=== PATIENT | male | born 1970 | race Caucasian/White ===

== ENCOUNTER → 2018-02-11 07:14 | Outpatient (CLI) | payer OTHER, MEDICAID, SELFPAY ==
[2018-02-11 09:06] LABS: Hematocrit 41.3 % (41-53)
[2018-02-11 09:07] LABS: Calcium 9.3 mg/dL (8.4-10.2)
[2018-02-11 09:39] LABS: Vitamin D 25 Hydroxy (D3) 26.8 ng/mL (30.0-100.0)
[2018-02-15 13:53] LABS: Parathyroid Hormone Int 42 pg/mL (14-64)
== END ==
PROVIDERS: PCP Physician Assistant; Visit Provider Nurse Practitioner
DX: E29.1 Testicular hypofunction (principal); M81.0 Age-related osteoporosis without current pathological fracture
CPT/HCPCS: 36415; 82306; 82310; 83970; 84402; 84403; 85014

== ENCOUNTER → 2018-04-16 12:56 | Outpatient (CLI) | payer OTHER, MEDICAID, SELFPAY ==
--- NOTE | 2018-04-16 | DI.RAD.S_ITS ---
PROCEDURE: XR LUMBAR SPINE 2-3V INDICATIONS: FALL WITH LUMBAR PAIN TECHNIQUE: 3 views of the lumbar spine were acquired. COMPARISON: [facility], , L-SPINE MINIMUM 4 VIEWS, 01/03/2016, 10:45. FINDINGS: Bones: 5 [id number] vertebrae are present. There is normal bony alignment. No vertebral body compression fractures. No suspicious bony lesions. Extensive degenerative change at L5-S1 is noted, mildly worsened from 2016 comparison study. Extensive spinal fixation crossing an area of prior burst fracture involving L3 is again noted. No disruption of the fixation devices is identified. Soft tissues: Overlying bowel gas pattern is normal. No suspicious soft tissue calcifications. IMPRESSION: Degenerative change and old fracture fixation devices crossing L3, no definite acute disease. Dictated by: Eber Wills M.D. on 04/16/2018 at 14:40 Approved by: Eber Wills M.D. on 04/16/2018 at 14:42
== END ==
PROVIDERS: PCP Physician Assistant; Visit Provider Nurse Practitioner
DX: M51.37 Other intervertebral disc degeneration, lumbosacral region (principal); M54.5 Low back pain
CPT/HCPCS: 72100

== ENCOUNTER → 2018-06-30 10:37 | Outpatient (CLI) | payer OTHER, SELFPAY ==
--- NOTE | 2018-06-30 | DI.RAD.S_ITS ---
PROCEDURE: XR LUMBAR SPINE MIN 4V INDICATIONS: SPINE FUSION TECHNIQUE: 5 views of the lumbar spine acquired. COMPARISON: [facility], CR, XR LUMBAR SPINE 2-3V, 04/16/2018, 12:46. [facility], CR, L-SPINE MINIMUM 4 VIEWS, 01/03/2016, 10:45. [facility], CT, CT LUMBAR SPINE WO CON, 06/30/2018, 10:41. FINDINGS: Bones: There is internal fixation of burst fracture at L3 with intact surgical hardware. Methylmethacrylate is noted within the L2 and L4 vertebral bodies, consistent with Vertebroplasties. No evidence for hardware failure. Moderate degenerative facet disease at L5-S1. Soft tissues: Overlying bowel gas pattern is normal. No suspicious soft tissue calcifications. Flexion/extension: There is reduced range of motion, with preserved normal alignment. IMPRESSION: 1. Stable postsurgical changes. 2. Degenerative changes noted. 3. Preserved alignment on flexion and extension. Dictated by: Jen Sanabria M.D. on 06/30/2018 at 18:08 Approved by: Jen Sanabria M.D. on 06/30/2018 at 19:02
--- NOTE | 2018-06-30 | DI.CT.S_ITS ---
PROCEDURE: CT LUMBAR SPINE WO CON INDICATIONS: FUSION OF SPINE TECHNIQUE: Noncontrast 3 mm thick sections acquired from the T12 level to the sacrum. Sagittal and coronal reformats were constructed. For radiation dose reduction, the following was used: automated exposure control. COMPARISON: [facility], CT, CT ABD PELVIS W CON TRAUMA, 10/05/2015, 18:59. [facility], CR, XR LUMBAR SPINE MIN 4V, 06/30/2018, 10:49. [facility], CR, XR LUMBAR SPINE 2-3V, 04/16/2018, 12:46. [facility], CR, L-SPINE MINIMUM 4 VIEWS, 01/03/2016, 10:45. FINDINGS: Image quality: Excellent. Bones: There is normal bony alignment. Surgical fixation of L3 burst fracture. There is spinal fusion at L2-L4. The interbody fixation device is noted in L3 vertebral body. Fixation hardware appears intact. Metallic artifact partially obscure corresponding levels. There is methylmethacrylate in L2 and L4 vertebral bodies. No acute vertebral body compression fractures. No suspicious lytic or blastic bony lesions. There is mild posterior disc bulge and disc osteophyte at L1-L2, L4-L5 and L5-S1. Central spinal caliber is of normal overall caliber. No pars defects. Soft tissues: No retroperitoneal masses or hematomas. Visualized aorta is normal in caliber. IMPRESSION: 1. Stable postsurgical changes. No evidence for hardware failure. 2. Mild degenerative disc disease at L1-L2, L 4-L5 and L5-S1. Dictated by: Jen Sanabria M.D. on 06/30/2018 at 17:11 Approved by: Jen Sanabria M.D. on 06/30/2018 at 19:07
== END ==
PROVIDERS: PCP Physician Assistant; Visit Provider Physical Medicine & Rehabilitation
DX: M51.36 Other intervertebral disc degeneration, lumbar region (principal); M51.37 Other intervertebral disc degeneration, lumbosacral region; Z98.1 Arthrodesis status
CPT/HCPCS: 72110; 72131

== ENCOUNTER → 2019-03-28 07:06 | Outpatient (CLI) | payer OTHER, MEDICAID, SELFPAY ==
[2019-03-28 08:16] LABS: Alanine Aminotransferase 14 IU/L (21-72); Albumin 4.1 g/dL (3.5-5.0); Alkaline Phosphatase 169 U/L (38-126); Aspartate Aminotransferase 24 IU/L (17-59); BUN Creatinine Ratio 15.7 (6-22); Bilirubin Total 0.6 mg/dL (0.2-1.3); Blood Urea Nitrogen 11 mg/dL (9-20); Calcium 9.3 mg/dL (8.4-10.2); Carbon Dioxide 33 mmol/L (22-32); Chloride 103 mmol/L (98-107); Cholesterol 126 mg/dL (140-199); Estimated Glomerular Filt Rate > 60.0 mL/min (>60); Globulin 4.2 g/dL (1.7-4.1); Glucose 99 mg/dL (70-100); HDL Cholesterol 40 mg/dL (40-60); HEMOLYSIS 20 (0-50); LDL Cholesterol Calculated 71 mg/dL (<100); Potassium 3.6 mmol/L (3.4-5.1); Sodium 141 mmol/L (137-145); Total Protein 8.3 g/dL (6.3-8.2); Triglycerides 73 mg/dL (35-150)
[2019-03-28 08:18] LABS: Hemoglobin A1C% w Est Avg Glu 5.2 % (4.0-6.0)
[2019-03-28 17:38] LABS: Microalbumin Urine Random 15.3 mg/dL (0-1.6)
[2019-03-28 18:50] LABS: Creatinine Urine Random 467.3 mg/dL; Microalbumi Creatinin Ratio Ur 32.7 ug/mg CR (<30)
== END ==
PROVIDERS: Family Provider Internal Medicine Endocrinology, Diabetes & Metabolism; PCP Physician Assistant; Visit Provider Physician Assistant
DX: E29.1 Testicular hypofunction (principal); I10 Essential (primary) hypertension; M81.0 Age-related osteoporosis without current pathological fracture
CPT/HCPCS: 36415; 80053; 80061; 82043; 82306; 82570; 83036

== ENCOUNTER → 2019-03-30 09:41 | Outpatient (CLI) | payer OTHER, MEDICAID, SELFPAY ==
[2019-03-30 10:33] LABS: Prostate Specific Antigen 0.991 ng/mL (0.10-4.00)
== END ==
PROVIDERS: Family Provider Internal Medicine Endocrinology, Diabetes & Metabolism; PCP Physician Assistant; Visit Provider Physician Assistant
DX: Z12.5 Encounter for screening for malignant neoplasm of prostate (principal)
CPT/HCPCS: 84153

== ENCOUNTER → 2019-03-30 10:29 | Outpatient (CLI) | payer OTHER, MEDICAID, SELFPAY ==
--- NOTE | 2019-03-30 10:32 | DI.RAD.S_ITS ---
PROCEDURE: XR LUMBAR SPINE 2-3V INDICATIONS: Fall onto back 2 weeks ago, pain in L5-S1 area TECHNIQUE: 3 views of the lumbar spine were acquired. COMPARISON: [facility], CR, L-SPINE MINIMUM 4 VIEWS, 01/03/2016, 10:45. [facility], CR, XR LUMBAR SPINE 2-3V, 04/16/2018, 12:46. [facility], CR, XR LUMBAR SPINE MIN 4V, 06/30/2018, 10:49. FINDINGS: Bones: Prior fixation of L3 burst fracture with intact surgical hardware and there is no evidence of hardware failure. Bone cement again visualized within the L2 and L4 vertebral bodies. Alignment is unchanged and no acute fracture seen. Mild disc degeneration at the L4-L5 and L5-S1 levels where there also is moderate facet joint arthropathy. Bones are osteopenic.. Soft tissues: Overlying bowel gas pattern is normal. No suspicious soft tissue calcifications. IMPRESSION: 1. Unchanged postsurgical sequelae. 2. Degenerative changes again noted. Dictated by: Trevor Terry [facility] Interpreted: Sesar Barrios MD on 03/30/2019 at 13:26 Approved by: Sesar Barrios M.D. on 03/30/2019 at 14:54
== END ==
PROVIDERS: PCP Physician Assistant; Visit Provider Physician Assistant
DX: Z12.5 Encounter for screening for malignant neoplasm of prostate (principal); M54.5 Low back pain; M47.816 Spondylosis without myelopathy or radiculopathy, lumbar region; M47.817 Spondylosis without myelopathy or radiculopathy, lumbosacral region; M51.36 Other intervertebral disc degeneration, lumbar region; M51.37 Other intervertebral disc degeneration, lumbosacral region; M81.0 Age-related osteoporosis without current pathological fracture; E29.1 Testicular hypofunction
CPT/HCPCS: 72100; 84153

== ENCOUNTER 2019-04-12 19:43 | Emergency (ER) | payer OTHER, MEDICAID, SELFPAY ==
[2019-04-12 19:45] VITALS: BP 153/125; PULSE 104; RESP 18; TEMP 36.7; O2SAT 99
--- NOTE | 2019-04-12 19:51 | ED_ITS ---
HPI - SOB/Dyspnea General Chief Complaint: Upper Respiratory Symptoms Stated Complaint: SHORT OF BREATH Time Seen by Provider: 04/12/19 19:46 Source: patient Mode of arrival: ambulatory Limitations: no limitations History of Present Illness Patient is a 48-year-old male. He is homeless. He does have a history of high blood pressure. He also has complaints of shortness of breath and tenderness when he touches the left side of his chest. He states he has had this chest pain in the past since been diagnosed with costochondritis. He states that he has sinus congestion and no nasal polyps. He is not currently on any decongestants. He attributes his shortness of breath to the fact that he closed his car windows today because it was raining which caused him to become more congested. He states he has not had any of his blood pressure medications in the past 4 days. He states that he lost his medications. He also states that alvarez moya has a headache. He went to the walk-in clinic and was sent her to the emergency department. Related Data Previous Rx's Medication Instructions Recorded amlodipine 10 mg tablet 10 mg PO DAILY #30 tab 03/30/19 amlodipine 10 mg PO DAILY #30 tab 04/12/19 loratadine [Claritin] 10 mg PO DAILY PRN #30 tab 04/12/19 Allergies Allergy/AdvReac Type Severity Reaction Status Date / Time aspirin [ASPIRIN] Allergy Severe Swollen Verified 03/30/19 09:28 head and upper respiratory distress at age 2 Penicillins [PENICILLINS] Allergy Unknown mom was Verified 03/30/19 09:28 told I was allergic to penicillin same as aspirin. Review of Systems Constitutional Denies fever(s) and Reports headache(s) Eyes Reports blurry vision ENT Ears, Nose, Mouth, and Throat: Reports headache(s) and Reports sinus pressure Cardiovascular Reports chest pain (Left-sided chest wall) and Reports dyspnea Respiratory Reports chest congestion and Reports dyspnea Comments: Sinus congestion Gastrointestinal Gastrointestinal: Denies abdominal pain Musculoskeletal Denies myalgias and Denies arthralgias Integumentary/Breasts Denies lesions and Denies rash Neurologic Denies behavioral changes and Reports headache(s) Psychiatric Denies behavioral changes Hematologic/Lymphatic Denies easy bleeding and Denies easy bruising [facility] Medical History Arm fracture, left (Acute 1990) Allergic rhinitis (Chronic 1968) Anxiety (Chronic) Depression (Chronic) Hearing loss (Chronic 1968) Hypertension (Chronic 2015) Hypogonadism (Chronic ~02/2016) Low back pain (Chronic) Osteoporosis (Chronic 1998) Partial blindness (Chronic 1968) Sleep apnea (Chronic Unknown) Burst fracture of lumbar vertebra (Resolved 09/2015) Compression fracture of L2 (Resolved 09/2015) Fractures (Resolved) Nasal polyps (Resolved 1968) Substance abuse (Resolved 1999) Surgical History (Updated 04/29/18 @ 13:43 by Doris Reynolds LPN) History of back surgery (Resolved 09/2015) History of surgery on arm (Resolved 1990) Hx of nasal polypectomy (Resolved ~1985) History of spinal fusion (2015) Family History (Updated 04/29/18 @ 13:45 by Doris Reynolds LPN) Brother Age: 52 Hypertension Brother Hypertension Mother Age: 75 Hypertension Sister Age: 57 Diabetes mellitus Hypertension Sister Age: 59 Diabetes mellitus Hypertension Father Cancer Social History Smoking Status: Never smoker second hand exposure: Yes (once in a while. ) alcohol intake: current (beer or mixed drinks twice a week. ) substance use type: marijuana Family History (Updated 04/29/18 @ 13:45 by Doris Reynolds LPN) Brother Age: 52 Hypertension Brother Hypertension Mother Age: 75 Hypertension Sister Age: 57 Diabetes mellitus Hypertension Sister Age: 59 Diabetes mellitus Hypertension Father Cancer Social History Smoking Status: Never smoker second hand exposure: Yes (once in a while. ) alcohol intake: current (beer or mixed drinks twice a week. ) substance use type: marijuana Exam Initial Vital Signs Initial Vital Signs: Vital Signs Temperature 98.1 F 04/12/19 19:45 Pulse Rate 104 H 04/12/19 19:45 Respiratory Rate 18 04/12/19 19:45 Blood Pressure 153/125 H 04/12/19 19:45 Pulse Oximetry 99 04/12/19 19:45 Const General: cooperative, well developed, well groomed and No acute distress Orientation: alert, awake and oriented x3 HENMT Head: normal to inspection and normocephalic Chest Chest: tenderness (Left-sided chest wall) Resp Effort & Inspection: normal respiratory effort Auscultation: clear to auscultation bilaterally Cardio Rate: tachycardic Rhythm: regular rhythm Pulses: radial pulses present GI Inspection: non-distended Palpation: soft, No firm and No tender Skin Lesions: no lesions Rashes: no rashes Neuro General: alert, awake and oriented x3 Speech: speech normal Gait: normal gait Motor: muscle tone normal throughout Sensory Exam: no sensory deficits noted Extrem General: normal to inspection and capillary refill normal Psych Appearance: grossly normal and well kempt Course Orders Ordered: ED Orders 04/12/19 19:50 EKG-12 Lead Stat 04/12/19 19:55 Basic Metabolic Panel Stat Complete Blood Count AUTO DIFF Stat Troponin I Stat 04/12/19 20:02 XR chest 1V Stat Discontinued Medications Amlodipine Besylate (Norvasc) 10 mg PO NOW ONE Stop: 04/12/19 20:03 Last Admin: 04/12/19 20:24 Dose: 10 mg Ibuprofen (Advil) 800 mg PO NOW ONE Stop: 04/12/19 20:03 Last Admin: 04/12/19 20:25 Dose: 800 mg Vital Signs - 8 hr 04/12/19 19:45 04/12/19 20:34 04/12/19 20:59 Temperature 98.1 F Pulse Rate 104 H 81 85 Respiratory Rate 18 14 Blood Pressure 153/125 H 162/122 H Blood Pressure [Right Arm] 154/117 H Pulse Oximetry 99 98 98 MDM - SOB/Dyspnea Medical Records Attestation: I reviewed the patient's medical records. Lab Data Attestation: I reviewed the patient's lab results. Result diagrams: 04/12/19 19:55 04/12/19 19:55 Lab Results 04/12/19 04/12/19 Range/Units 19:55 19:55 WBC 5.5 (4.5-11.0) X10^3/uL RBC 4.66 (4.5-5.9) X10^6/uL Hgb 14.4 (13.5-17.5) g/dL Hct 41.6 (41-53) % MCV 89.2 (80-100) fL MCH 30.8 (26-34) PG MCHC 34.6 (30-36) % RDW 12.6 (11.6-14.8) % Plt Count 205 (150-400) X10^3/uL Neut % (Auto) 42.5 L (50-75) % Lymph % (Auto) 37.6 (25-40) % [facility] % (Auto) 7.2 (3-14) % Eos % (Auto) 11.8 H (2-4) % Baso % (Auto) 0.9 (0-2) % Neut # (Auto) 2300 (3861-2258) /uL Lymph # (Auto) 2100 (4812-5364) /uL [facility] # (Auto) 400 (0-900) /uL Eos # (Auto) 700 H (0-450) /uL Baso # (Auto) 0 (0-100) /uL Sodium 142 (137-145) mmol/L Potassium 3.2 L (3.4-5.1) mmol/L Chloride 104 (98-107) mmol/L Carbon Dioxide 27 (22-32) mmol/L BUN 12 (9-20) mg/dL Creatinine 0.60 L (0.66-1.25) mg/dL Estimated GFR > 60.0 (>60) mL/min BUN/Creatinine Ratio 20.0 (6-22) Glucose 95 (70-100) mg/dL Calcium 9.4 (8.4-10.2) mg/dL Troponin I < 0.012 (0.01-0.034) ng/mL Imaging Data Chest x-ray: Radiologist's impression: [address] [address] XRay Report Signed Patient: Tom Escalona JMR#: [id number] : 1970Acct:[id number] Age/Sex: 48 / MDate of Service: 04/12/19 Loc: ED Accession Number: [id number] Procedure: XR chest 1V Ordering Provider: Noman Patel D.O. PROCEDURE: XR CHEST 1V INDICATIONS: shortness of breath TECHNIQUE: One view of the chest was acquired. COMPARISON: None. FINDINGS: Surgical changes and devices: None. Lungs and pleura: Lungs are clear. No pleural effusions or pneumothorax. Mediastinum: Mediastinal contours appear normal. Heart size is normal. Bones and chest wall: No suspicious bony lesions. Overlying soft tissues appear unremarkable. IMPRESSION: No acute disease. Dictated by: Sesar Barrios M.D. on 04/12/2019 at 20:26 Approved by: Sesar Barrios M.D. on 04/12/2019 at 20:36 ECG Data Attestation: I personally reviewed and interpreted this ECG as follows: Prior ECG tracings: not available for review Interpretation: Sinus rhythm Ventricular rate is 87 Normal axis Normal QRS Normal QTC No ST T wave changes MDM Narrative Medical decision making narrative: Patient has obvious left-sided chest wall pain have low suspicion for ACS. He does have sinus congestion. Low suspicion for PE. Chest x-ray is negative. EKG is unremarkable. Labs are unremarkable. he was given an ibuprofen for his headache. He was also given a dose of his amlodipine. Was sent home with a new prescription for this. Will also start him on Claritin. Will hold on further workup for now. Patient was given return precautions and follow-up instructions. He expressed understanding and agreement with plan. Discharge Plan Departure Patient Disposition: Home Clinical Impression: Sinus congestion Hypertension Qualifiers: Hypertension type: unspecified Qualified Code(s): I10 - Essential (primary) hypertension Discharge Date/Time: 04/12/19 21:00 Interventions: ED Discharge Assessment Last Done: 04/12/19 20:59 Instructions: Essential Hypertension Activity Restrictions/Additional Instructions: Continue to take all of your medications as directed. Tomorrow contact your primary provider for a follow-up. Return to the emergency department for any new or worsening symptoms Prescriptions: New amlodipine 10 mg tablet 10 mg PO DAILY Qty: 30 RF: 0 loratadine [Claritin] 10 mg tablet 10 mg PO DAILY PRN (Reason: allergy symptoms) Qty: 30 RF: 0 No Action amlodipine 10 mg tablet 10 mg PO DAILY Qty: 30 RF: 6 Referrals: Fabiola Elizabeth PA-C [Primary Care Provider] -
--- NOTE | 2019-04-12 20:02 | DI.RAD.S_ITS ---
PROCEDURE: XR CHEST 1V INDICATIONS: shortness of breath TECHNIQUE: One view of the chest was acquired. COMPARISON: None. FINDINGS: Surgical changes and devices: None. Lungs and pleura: Lungs are clear. No pleural effusions or pneumothorax. Mediastinum: Mediastinal contours appear normal. Heart size is normal. Bones and chest wall: No suspicious bony lesions. Overlying soft tissues appear unremarkable. IMPRESSION: No acute disease. Dictated by: Sesar Barrios M.D. on 04/12/2019 at 20:26 Approved by: Sesar Barrios M.D. on 04/12/2019 at 20:36
[2019-04-12 20:09] LABS: Add Manual Diff / Slide Review NO; Basophils Absolute Auto 0 /uL (0-100); Basophils Percent Auto 0.9 % (0-2); Eosinophils Absolute Auto 700 /uL (0-450); Eosinophils Percent Auto 11.8 % (2-4); Hematocrit 41.6 % (41-53); Hemoglobin 14.4 g/dL (13.5-17.5); Lymphocytes Absolute Auto 2100 /uL (1100-4500); Lymphocytes Percent Auto 37.6 % (25-40); Mean Corpuscular HGB Conc 34.6 % (30-36); Mean Corpuscular Hemoglobin 30.8 PG (26-34); Mean Corpuscular Volume 89.2 fL (80-100); Monocytes Absolute Auto 400 /uL (0-900); Monocytes Percent Auto 7.2 % (3-14); Neutrophils Absolute Auto 2300 /uL (1500-7000); Neutrophils Percent Auto 42.5 % (50-75); Platelet Count 205 X10^3/uL (150-400); Red Blood Cell Count 4.66 X10^6/uL (4.5-5.9); Red Cell Distribution Width 12.6 % (11.6-14.8); White Blood Cell Count 5.5 X10^3/uL (4.5-11.0)
[2019-04-12 20:16] LABS: Blood Urea Nitrogen 12 mg/dL (9-20); Calcium 9.4 mg/dL (8.4-10.2); Carbon Dioxide 27 mmol/L (22-32); Chloride 104 mmol/L (98-107); Estimated Glomerular Filt Rate > 60.0 mL/min (>60); Glucose 95 mg/dL (70-100); HEMOLYSIS 30 (0-50); Potassium 3.2 mmol/L (3.4-5.1); Sodium 142 mmol/L (137-145)
[2019-04-12] MEDS: AMLODIPINE 2.5 MG TABLET 10 MG PO (20:24)
[2019-04-12] MEDS: IBUPROFEN 400 MG TABLET 800 MG PO (20:25)
[2019-04-12 20:27] LABS: Troponin I < 0.012 ng/mL (0.01-0.034)
[2019-04-12 20:34] VITALS: BP 154/117; PULSE 81; RESP 14; O2SAT 98
[2019-04-12 20:59] VITALS: BP 162/122; PULSE 85; O2SAT 98
== END 2019-04-12 21:00 | disposition home or self-care (01) ==
PROVIDERS: Emergency Provider Emergency Medicine; PCP Physician Assistant
DX: R09.81 Nasal congestion (principal); I10 Essential (primary) hypertension
CPT/HCPCS: 36591; 71045; 80048; 84484; 85025; 93005; 99283; 99285

== ENCOUNTER 2019-04-20 06:53 | Emergency (ER) | payer OTHER, MEDICAID, SELFPAY ==
[2019-04-20 07:00] VITALS: BP 143/95; PULSE 79; RESP 20; TEMP 36.5; O2SAT 94; BMI 26.2
--- NOTE | 2019-04-20 07:14 | DI.RAD.S_ITS ---
PROCEDURE: XR RIBS LT MIN 3V W CXR1V INDICATIONS: fall 2 ft TECHNIQUE: 2 views of the left ribs were acquired, along with a single view chest. COMPARISON: CXR 03/23/2019 and left rib radiographs 04/10/2019. FINDINGS: Surgical changes and devices: Lumbar spine hardware. BB marker overlies the left lateral inferior ribs. Bones and chest wall: No displaced rib fracture. No periosteal reaction seen. No dislocation. No suspicious bony lesions. Overlying soft tissues appear unremarkable. Lungs and pleura: No pleural effusions or pneumothorax. Mild hazy opacity at the left lung base most compatible atelectasis. Mediastinum: Mediastinal contours appear normal. Heart size is normal. IMPRESSION: No displaced rib fracture. Left lung base atelectasis. Dictated by: Ken Chawla M.D. on 04/20/2019 at 8:09 Approved by: Ken Chawla M.D. on 04/20/2019 at 8:15
--- NOTE | 2019-04-20 07:15 | DI.RAD.S_ITS ---
PROCEDURE: XR WRIST LT MIN 3V INDICATIONS: fall 2ft TECHNIQUE: 4 views of the wrist were acquired. COMPARISON: None. FINDINGS: Bones: No fractures or dislocations. No suspicious bony lesions. Scaphoid view: Normal. Soft tissues: No suspicious soft tissue calcifications. Apparent swelling at the volar aspect of the wrist. IMPRESSION: No acute osseous abnormality. Dictated by: Ken Chawla M.D. on 04/20/2019 at 8:04 Approved by: Ken Chawla M.D. on 04/20/2019 at 8:06
--- NOTE | 2019-04-20 07:27 | ED.FALL ---
HPI - Fall General Chief Complaint: Fall Stated Complaint: fell 2 ft onto left hand and ribs pain Time Seen by Provider: 04/20/19 07:08 Source: patient Mode of arrival: ambulatory Limitations: no limitations History of Present Illness HPI Narrative: Patient presents emergency department complaining pain in his left wrist left ribs and lumbar spine after attempting to climb in a window and falling about 2 ft to the ground. Patient states he caught himself with his left upper extremity, then fell on to his elbow, coming down on his side causing his elbow to jabbed into his ribs. Patient states the fall occurred 5 days ago and he continues to have pain with inspiration, pain with movement of his wrist, and pain with movement of his lumbar spine that is worse than normal. Patient denies hitting his head or losing consciousness. He denies any abdominal pain. No extremity numbness or tingling. No lower extremity complaints. No other complaints at this time. Related Data Previous Rx's Medication Instructions Recorded amlodipine 10 mg tablet 10 mg PO DAILY #30 tab 03/30/19 amlodipine 10 mg PO DAILY #30 tab 04/12/19 loratadine [Claritin] 10 mg PO DAILY PRN #30 tab 04/12/19 Allergies Allergy/AdvReac Type Severity Reaction Status Date / Time aspirin [ASPIRIN] Allergy Severe Swollen Verified 03/30/19 09:28 head and upper respiratory distress at age 2 Penicillins [PENICILLINS] Allergy Unknown mom was Verified 03/30/19 09:28 told I was allergic to penicillin same as aspirin. Review of Systems Review of Systems ROS Unobtainable: All systems reviewed & are unremarkable except as noted in HPI and below Constitutional Constitutional: Denies chills, Denies fatigue, Denies fever(s), Denies frequent falls, Denies lethargy and Denies weakness Eyes Eyes: Denies change in vision, Denies eye discharge, Denies irritation and Denies loss of vision ENT Ears, Nose, Mouth, and Throat: Denies change in voice, Denies dizziness, Denies neck pain, Denies sore throat and Denies throat swelling Cardiovascular Cardiovascular: Denies chest pain, Denies irregular heart rhythm, Denies lightheadedness, Denies palpitations, Denies dyspnea, Denies dyspnea on exertion and Denies orthopnea Respiratory Respiratory: Denies cough, Denies dyspnea, Denies dyspnea on exertion and Denies wheezing Gastrointestinal Gastrointestinal: Denies abdominal pain, Denies change in bowel habits, Denies diarrhea, Denies nausea and Denies vomiting Genitourinary Genitourinary: Denies hematuria, Denies flank pain, Denies urinary incontinence and Denies urinary urgency Musculoskeletal Musculoskeletal: Reports back pain, Denies muscle weakness, Denies neck pain, Denies numbness and Denies tingling Comments: Pain of left wrist and left ribs. Integumentary/Breasts Skin/Breast: Denies pruritus, Denies erythema, Denies rash and Denies wounds Neurologic Neurologic: Denies behavioral changes, Denies confusion, Denies dizziness, Denies frequent falls, Denies loss of vision, Denies numbness, Denies tingling and Denies weakness Psychiatric Psychiatric: Denies anxiety, Denies behavioral changes, Denies confusion, Denies depression, Denies homicidal ideation and Denies suicidal ideation Endocrine Endocrine: Denies fatigue, Denies flushing and Denies palpitations Hematologic/Lymphatic Hematologic/Lymphatic: Denies easy bruising Allergic/Immunologic Allergic/Immunologic: Denies urticaria, Denies throat swelling and Denies wheezing Exam Initial Vital Signs Initial Vital Signs: Vital Signs Temperature 97.7 F 04/20/19 07:00 Pulse Rate 79 04/20/19 07:00 Respiratory Rate 20 04/20/19 07:00 Blood Pressure 143/95 H 04/20/19 07:00 Pulse Oximetry 94 04/20/19 07:00 Const General: cooperative and well developed Nutritional Appearance: well nourished Orientation: alert, awake, oriented x3 and not confused [facility] Head: normocephalic and atraumatic Ears: external ears normal and TM's normal bilaterally Nose: external nose normal and No nasal discharge Face and sinus: sinuses nontender, face symmetric, no sinus tenderness and No dry mucous membranes Mouth: oral mucosae normal and moist mucous membranes Teeth and gingiva: dentition normal Throat: tonsils normal and uvula midline Eyes General: appearance normal, both eyes and all related structures Eyelids: eyelids normal Conjunctivae: conjunctivae normal Sclera: sclerae normal Pupils: PERRL EOM: EOM intact bilaterally Neck Neck: normal visual inspection, trachea midline, No lymphadenopathy, No midline deformity and No JVD Lymphatic: No lymphedema Chest Other: Patient has moderate tenderness to palpation over his left lateral and anterolateral rib cage inferiorly. Tenderness extends from approximately the 10th rib to the 7th rib levels. Resp Effort & Inspection: normal respiratory effort, able to speak in complete sentences, no respiratory distress and no use of accessory muscles Auscultation: clear to auscultation bilaterally, no rales, no rhonchi and no wheezes Cardio Rate: regular rate Rhythm: regular rhythm Heart Sounds: no click, no gallops, no murmurs and no rubs Pulses: normal peripheral pulses GI Inspection: non-distended Palpation: soft, no hepatosplenomegaly, No guarding, No pulsatile mass and No tender Auscultation: normal bowel sounds Back/Spine/Pelvis Back: No CVA tenderness Cervical Spine: cervical ROM normal and No pain with cervical ROM Thoracic/Lumbar Spine: thoracic and lumbar spine normal to inspection Skin General: no rashes or lesions noted, No jaundice and No petechiae Neuro General: alert, oriented x3, gait normal and no focal motor deficits Speech: speech normal Extrem General: full ROM, no pedal edema and no calf tenderness Other: Patient has point tenderness over the radial aspect of his left wrist. No edema or deformity is noted. Mild tenderness is noted over the anatomical snuffbox. Psych Appearance: well kempt Mental Status: mental status grossly normal Attitude: cooperative Thought Content: normal and suicidality Judgment: judgment good [facility] Medical History Allergic rhinitis (Chronic 1968) Anxiety (Chronic) Arm fracture, left (Acute 1990) Burst fracture of lumbar vertebra (Resolved 09/2015) Compression fracture of L2 (Resolved 09/2015) Depression (Chronic) Fractures (Resolved) Hearing loss (Chronic 1968) Hypertension (Chronic 2015) Hypogonadism (Chronic ~02/2016) Low back pain (Chronic) Nasal polyps (Resolved 1968) Osteoporosis (Chronic 1998) Partial blindness (Chronic 1968) Sleep apnea (Chronic Unknown) Substance abuse (Resolved 1999) Surgical History History of back surgery (Resolved 09/2015) History of spinal fusion (2015) History of surgery on arm (Resolved 1990) Hx of nasal polypectomy (Resolved ~1985) Family History (Updated 04/29/18 @ 13:45 by Doris Reynolds LPN) Brother Age: 52 Hypertension Brother Hypertension Mother Age: 75 Hypertension Sister Age: 57 Diabetes mellitus Hypertension Sister Age: 59 Diabetes mellitus Hypertension Father Cancer Social History Smoking Status: Never smoker second hand exposure: Yes (once in a while. ) alcohol intake: current (beer or mixed drinks twice a week. ) substance use type: marijuana Family History Brother Age: 52 Hypertension Brother Hypertension Mother Age: 75 Hypertension Sister Age: 57 Diabetes mellitus Hypertension Sister Age: 59 Diabetes mellitus Hypertension Father Cancer Social History Smoking Status: Never smoker second hand exposure: Yes (once in a while. ) alcohol intake: current (beer or mixed drinks twice a week. ) substance use type: marijuana Course Course Course Narrative: Patient was sent for x-rays of his left wrist left ribs and lumbar spine, and treated with ibuprofen in the emergency department. Orders Ordered: ED Orders 04/20/19 07:14 XR ribs LT min 3V w CXR1V Stat 04/20/19 07:15 XR wrist LT min 3V Stat 04/20/19 07:28 XR lumbar spine 2-3V Stat Discontinued Medications Ibuprofen (Advil) 800 mg PO NOW ONE Stop: 04/20/19 07:28 Last Admin: 04/20/19 08:07 Dose: 800 mg Documented by: Vital Signs Vital signs: Vital Signs - 8 hr 04/20/19 07:00 Temperature 97.7 F Pulse Rate 79 Respiratory Rate 20 Blood Pressure 143/95 H Pulse Oximetry 94 MDM - Fall Medical Records Attestation: I reviewed the patient's medical records. Imaging Data X-ray lumbar spine: Radiologist's impression: ROCEDURE: XR LUMBAR SPINE 2-3V INDICATIONS: fall/fusion hx/sharp pain TECHNIQUE: 3 views of the lumbar spine were acquired. COMPARISON: [facility], [place], XR LUMBAR SPINE 2-3V, 03/30/2019, 10:36. CT lumbar spine 06/30/2018. FINDINGS: Bones: 5 [id number] vertebrae are present. Alignment is unchanged. No acute fracture seen. Pedicle screws at L2 and L4 with vertebroplasty. Intervertebral body spacer at L3. Hardware is intact and unchanged. No suspicious bony lesions. Soft tissues: Overlying bowel gas pattern is normal. No suspicious soft tissue calcifications. IMPRESSION: No acute osseous abnormality identified. Lumbar spine hardware is intact. Dictated by: Ken Chawla M.D. on 04/20/2019 at 8:06 Approved by: Ken Chawla M.D. on 04/20/2019 at 8:09 Wrist x-ray: Radiologist's impression: PROCEDURE: XR WRIST LT MIN 3V INDICATIONS: fall 2ft TECHNIQUE: 4 views of the wrist were acquired. COMPARISON: None. FINDINGS: Bones: No fractures or dislocations. No suspicious bony lesions. Scaphoid view: Normal. Soft tissues: No suspicious soft tissue calcifications. Apparent swelling at the volar aspect of the wrist. IMPRESSION: No acute osseous abnormality. Dictated by: Ken Chawla M.D. on 04/20/2019 at 8:04 Approved by: Ken Chawla M.D. on 04/20/2019 at 8:06 Rib x-ray: Radiologist's impression: PROCEDURE: XR RIBS LT MIN 3V W CXR1V INDICATIONS: fall 2 ft TECHNIQUE: 2 views of the left ribs were acquired, along with a single view chest. COMPARISON: CXR 03/23/2019 and left rib radiographs 04/10/2019. FINDINGS: Surgical changes and devices: Lumbar spine hardware. BB marker overlies the left lateral inferior ribs. Bones and chest wall: No displaced rib fracture. No periosteal reaction seen. No dislocation. No suspicious bony lesions. Overlying soft tissues appear unremarkable. Lungs and pleura: No pleural effusions or pneumothorax. Mild hazy opacity at the left lung base most compatible atelectasis. Mediastinum: Mediastinal contours appear normal. Heart size is normal. IMPRESSION: No displaced rib fracture. Left lung base atelectasis. Dictated by: Ken Chawla M.D. on 04/20/2019 at 8:09 Approved by: Ken Chawla M.D. on 04/20/2019 at 8:15 Discharge Plan Departure Patient Disposition: Home Clinical Impression: Contusion of multiple sites Left wrist sprain Qualifiers: Encounter type: initial encounter Qualified Code(s): S63.502A - Unspecified sprain of left wrist, initial encounter Instructions: DI for Wrist Sprain, DI for Contusion Activity Restrictions/Additional Instructions: All of your x-rays are negative for fracture. You may have sprained your wrist, and use likely bruised your ribs. Please take ibuprofen as needed, and You may also use ice to help with swelling and pain. Prescriptions: No Action amlodipine 10 mg tablet 10 mg PO DAILY Qty: 30 RF: 6 amlodipine 10 mg tablet 10 mg PO DAILY Qty: 30 RF: 0 loratadine [Claritin] 10 mg tablet 10 mg PO DAILY PRN (Reason: allergy symptoms) Qty: 30 RF: 0 Referrals: Fabiola Elizabeth PA-C [Primary Care Provider] -
[2019-04-20] MEDS: IBUPROFEN 400 MG TABLET 800 MG PO (08:07)
[2019-04-20 08:31] VITALS: BP 143/94; PULSE 79; RESP 18; O2SAT 98
--- NOTE | 2019-04-20 12:34 | PC.NURSE ---
Found magnifying glass that pt left in room after discharge. Magnifying glass was taken to the lost and found with his name and birthday attached. Pt was called and message was left telling him where it was so he can pick it up if he'd like
== END 2019-04-20 08:35 | disposition home or self-care (01) ==
PROVIDERS: Emergency Provider Emergency Medicine; PCP Physician Assistant
DX: S63.502A Unspecified sprain of left wrist, initial encounter (principal); T14.8XXA Other injury of unspecified body region, initial encounter; W17.89XA Other fall from one level to another, initial encounter
CPT/HCPCS: 71101; 72100; 73110; 99282; 99283

== ENCOUNTER 2019-04-29 12:50 | Emergency (ER) | payer OTHER, MEDICAID, SELFPAY ==
[2019-04-29 12:51] VITALS: BP 147/84; PULSE 86; RESP 16; TEMP 36.3; O2SAT 96
--- NOTE | 2019-04-29 13:30 | DI.RAD.S_ITS ---
PROCEDURE: XR RIBS LT MIN 3V W CXR1V INDICATIONS: Left rib pain after fall, SOB TECHNIQUE: 3 views of the left ribs were acquired, along with a single view chest. COMPARISON: [facility], CR, XR LUMBAR SPINE 2-3V, 04/20/2019, 7:34. [facility], CR, XR RIBS LT MIN 3V W CXR1V, 04/20/2019, 7:27. FINDINGS: Surgical changes and devices: None. Bones and chest wall: Mildly displaced left 6th through 8th rib fractures are evident. There may be additional subtle rib fractures, as well. No obvious dislocations are appreciated. There is a questionable anterior compression deformity involving the T10 vertebral body. His upper thoracic spine is not adequately evaluated on this exam. Postoperative changes of the upper lumbar spine are only partially visualized. No suspicious bony lesions. Overlying soft tissues appear unremarkable. Lungs and pleura: No pleural effusions or pneumothorax. Lungs appear clear. Mediastinum: Mediastinal contours appear normal. Heart size is normal. IMPRESSION: 1. Nondisplaced left 6th through 8th rib fractures. No definite pneumothorax. 2. Possible T10 compression deformity. Thoracic spine series may be helpful for better evaluation. Dictated by: Candido Kim M.D. on 04/29/2019 at 13:03 Approved by: Candido Kim M.D. on 04/29/2019 at 13:05
--- NOTE | 2019-04-29 13:33 | ED_ITS ---
HPI - Back Pain/Injury <CYNTHIA Mcmanus - Last Filed: 04/29/19 22:47> General Chief Complaint: Back Pain/Injury Stated Complaint: pain lt underarm x3 weeks ago Time Seen by Provider: 04/29/19 13:01 Source: patient Mode of arrival: ambulatory Limitations: no limitations History of Present Illness HPI Narrative: 48-year-old male with a history of osteoporosis, presents emergency department today complaining of continued left rib pain after fall 3 weeks ago. He states he had a ground level fall and slipped, fell to the ground, and his left wrist was underneath his ribs when he fell. He states he was seen in the emergency department when this 1st happened and the chest x-ray was negative but he feels like he should not have continued pain. He states the pain is in the left lower ribs and and reports that as an intermittent 10/10 sharp stabbing pain that is worse with deep inspiration, cough, movement, and sneezing. He denies any pain in his left wrist at this time. He denies any head trauma, shortness of breath, fevers, chills, abdominal pain, nausea, vomiting, syncope, or dizziness. Related Data Home Medications Medication Instructions Recorded Confirmed testosterone 10 mg/0.5 6 pump TRANSDERMAL QAM gram 04/26/19 04/26/19 gram/actuation transdermal gel pump Previous Rx's Medication Instructions Recorded amlodipine 10 mg PO DAILY #30 tab 04/12/19 loratadine [Claritin] 10 mg PO DAILY PRN #30 tab 04/12/19 cyclobenzaprine 5 mg tablet 5 mg PO BEDTIME PRN #10 tab 04/26/19 ibuprofen 600 mg tablet 600 mg PO Q6H PRN #30 tab 04/26/19 Allergies Allergy/AdvReac Type Severity Reaction Status Date / Time aspirin [ASPIRIN] Allergy Severe Swollen Verified 04/29/19 13:28 head and upper respiratory distress at age 2 Penicillins [PENICILLINS] Allergy Unknown mom was Verified 04/29/19 13:28 told I was allergic to penicillin same as aspirin. Review of Systems <CYNTHIA Mcmanus - Last Filed: 04/29/19 22:47> Review of Systems Narrative: REVIEW OF SYSTEMS: GENERAL: Denies fever or chills. HENT: No head trauma. EYES: No double vision or vision loss. CARDIOVASCULAR: No chest pain or syncope. RESPIRATORY: No shortness of breath or cough. GASTROINTESTINAL: No nausea, vomiting, diarrhea, or constipation. GENITOURINARY: No flank pain or dysuria. MUSCULOSKELETAL: Complains of left rib pain, see HPI. INTEGUMENTARY: No rash, lesions, or pruritus. NEURO: No numbness, tingling. PSYCH: No behavior or mood changes. [facility] <CYNTHIA Mcmanus - Last Filed: 04/29/19 22:47> Medical History Allergic rhinitis (Chronic 1968) Anxiety (Chronic) Arm fracture, left (Acute 1990) Burst fracture of lumbar vertebra (Resolved 09/2015) Compression fracture of L2 (Resolved 09/2015) Depression (Chronic) Fractures (Resolved) Hearing loss (Chronic 1968) Hypertension (Chronic 2015) Hypogonadism (Chronic ~02/2016) Low back pain (Chronic) Nasal polyps (Resolved 1968) Osteoporosis (Chronic 1998) Partial blindness (Chronic 1968) Sleep apnea (Chronic Unknown) Substance abuse (Resolved 1999) Surgical History History of back surgery (Resolved 09/2015) History of spinal fusion (2015) History of surgery on arm (Resolved 1990) Hx of nasal polypectomy (Resolved ~1985) Family History Brother Age: 52 Hypertension Brother Hypertension Mother Age: 75 Hypertension Sister Age: 57 Diabetes mellitus Hypertension Sister Age: 59 Diabetes mellitus Hypertension Father Cancer Social History Smoking Status: Never smoker second hand exposure: Yes (once in a while. ) alcohol intake: current (beer or mixed drinks twice a week. ) substance use type: marijuana Family History Brother Age: 52 Hypertension Brother Hypertension Mother Age: 75 Hypertension Sister Age: 57 Diabetes mellitus Hypertension Sister Age: 59 Diabetes mellitus Hypertension Father Cancer Social History Smoking Status: Never smoker second hand exposure: Yes (once in a while. ) alcohol intake: current (beer or mixed drinks twice a week. ) substance use type: marijuana Exam <CYNTHIA Mcmanus - Last Filed: 04/29/19 22:47> Initial Vital Signs Initial Vital Signs: Vital Signs Temperature 97.4 F L 04/29/19 12:51 Pulse Rate 86 04/29/19 12:51 Respiratory Rate 16 04/29/19 12:51 Blood Pressure 147/84 H 04/29/19 12:51 Pulse Oximetry 96 04/29/19 12:51 PHYSICAL EXAMINATION: GENERAL: Well groomed, alert, and cooperative. Answers questions promptly and appropriately. Vital signs noted. HENT: Normocephalic, atraumatic. EYES: Symmetrical, sclera white, no periorbital swelling. CARDIOVASCULAR: S1 and S2 sounds normal. Regular rate and rhythm, no murmurs, clicks, or bruits. No pedal edema. RESPIRATORY: Normal respiratory rate, trachea midline, airway patent. No stridor, nasal flaring or accessory muscle use. Lungs are clear in all [place]. MUSCULOSKELETAL: Tenderness to palpation of lower left ribs (rib 7 or 8), pain is also reproduced when patient is asked to move. No ecchymosis or erythema around the area. Full range of motion to upper extremities, no sternal tenderness. Approximately Normal gait and coordination. Equal tone and mass bilaterally. No spinal tenderness or deformities. EXTREMITIES: CMS intact. No pedal edema. SKIN: Warm, dry, soft, appropriate color for ethnicity. No lesions, rashes, or wounds. NEURO: Alert and Oriented X 3. No sensory deficits. PSYCH: Appropriate affect and mood. <Venkat Lowery DO - Last Filed: 04/30/19 06:37> Initial Vital Signs Initial Vital Signs: Vital Signs Temperature 97.4 F L 04/29/19 12:51 Pulse Rate 86 04/29/19 12:51 Respiratory Rate 16 04/29/19 12:51 Blood Pressure 147/84 H 04/29/19 12:51 Pulse Oximetry 96 04/29/19 12:51 Course <CYNTHIA Mcmanus - Last Filed: 04/29/19 22:47> Course Course Narrative: Patient denied need of any pain medication. Orders Ordered: ED Orders 04/29/19 14:39 RT Consult Eval and Treat NOW Vital Signs Vital signs: Vital Signs - 8 hr 04/29/19 12:51 Temperature 97.4 F L Pulse Rate 86 Respiratory Rate 16 Blood Pressure 147/84 H Pulse Oximetry 96 <Venkat Lowery DO - Last Filed: 04/30/19 06:37> Orders Ordered: ED Orders 04/29/19 14:39 RT Consult Eval and Treat NOW Vital Signs Vital signs: Vital Signs - 8 hr 04/29/19 12:51 Temperature 97.4 F L Pulse Rate 86 Respiratory Rate 16 Blood Pressure 147/84 H Pulse Oximetry 96 MDM - Back Pain/Injury <CYNTHIA Mcmanus - Last Filed: 04/29/19 22:47> Medical Records Attestation: I reviewed the patient's medical records. Lab Data Attestation: I reviewed the patient's lab results. Imaging Data Rib XR: Radiologist's impression: [address] [id number] XRay Report Signed Patient: Tom Escalona JMR#: [id number] : 1970Acct:[id number] Age/Sex: 48 / MDate of Service: 04/29/19 Loc: ED Accession Number: [id number] Procedure: XR ribs LT min 3V w CXR1V Ordering Provider: Michelle Radford PROCEDURE: XR RIBS LT MIN 3V W CXR1V INDICATIONS: Left rib pain after fall, SOB TECHNIQUE: 3 views of the left ribs were acquired, along with a single view chest. COMPARISON: [facility], CR, XR LUMBAR SPINE 2-3V, 04/20/2019, 7:34. [facility], CR, XR RIBS LT MIN 3V W CXR1V, 04/20/2019, 7:27. FINDINGS: Surgical changes and devices: None. Bones and chest wall: Mildly displaced left 6th through 8th rib fractures are evident. There may be additional subtle rib fractures, as well. No obvious dislocations are appreciated. There is a questionable anterior compression deformity involving the T10 vertebral body. His upper thoracic spine is not adequately evaluated on this exam. Postoperative changes of the upper lumbar spine are only partially visualized. No suspicious bony lesions. Overlying soft tissues appear unremarkable. Lungs and pleura: No pleural effusions or pneumothorax. Lungs appear clear. Mediastinum: Mediastinal contours appear normal. Heart size is normal. IMPRESSION: 1. Nondisplaced left 6th through 8th rib fractures. No definite pneumothorax. 2. Possible T10 compression deformity. Thoracic spine series may be helpful for better evaluation. Dictated by: Candido Kim M.D. on 04/29/2019 at 13:03 Approved by: Candido Kim M.D. on 04/29/2019 at 13:05 [facility] Narrative Medical decision making narrative: Simple display of rib fractures and compress ion fracture as indicated on x-ray without complication of pneumonia (no pneumonia on x-ray, afebrile, lack of tachycardia, lack of cough). Incentive spirometer given. Strict return precautions given and follow-up instructions discussed. Discharge Plan Departure Patient Disposition: Home Clinical Impression: Compression fracture Fracture of rib Qualifiers: Encounter type: initial encounter Rib fracture type: multiple ribs Fracture type: closed Laterality: left Qualified Code(s): S22.42XA - Multiple fractures of ribs, left side, initial encounter for closed fracture Discharge Date/Time: 04/29/19 15:13 Instructions: Vertebral Compression Fracture, DI for Rib Fracture Activity Restrictions/Additional Instructions: Thank you for entrusting me with your care today. As discussed, you have two rib fractures, #4 and # 6, as well as a compression fracture in your spine T10. Please use your incentive spirometer 10 times a day for 10 breaths each. Take 600 mg of ibuprofen every 6 hours or 1 naproxen every 12, do not take more than this as it can cause damage to your kidneys. Please follow up with her primary care provider in the next week as planned. Return to the emergency department if you develops high fevers, shortness of breath, syncope, or other concerning symptoms. Prescriptions: No Action testosterone 10 mg/0.5 gram /actuation gel in metered-dose pump 6 pump transdermal QAM RF: 0 ibuprofen 600 mg tablet 600 mg PO Q6H PRN (Reason: pain) Qty: 30 RF: 0 cyclobenzaprine 5 mg tablet 5 mg PO BEDTIME PRN (Reason: muscle spasm) Qty: 10 RF: 0 amlodipine 10 mg tablet 10 mg PO DAILY Qty: 30 RF: 0 loratadine [Claritin] 10 mg tablet 10 mg PO DAILY PRN (Reason: allergy symptoms) Qty: 30 RF: 0 Referrals: Fabiola Elizabeth PA-C [Primary Care Provider] - <Venkat Lowery DO - Last Filed: 04/30/19 06:37> Sign Out Provider Sign Out Attestation: I was immediately available in the department for consultation. Documentation has been reviewed. I agree with assessment and plan.
[2019-04-29 14:30] VITALS: BP 131/88; PULSE 77; RESP 17; O2SAT 99
--- NOTE | 2019-04-29 14:30 | PC.NURSE ---
Pain to left lower ribs, worse with inspiration or palpation from fall 3 weeks ago.
== END 2019-04-29 15:13 | disposition home or self-care (01) ==
PROVIDERS: Emergency Provider Nurse Practitioner; PCP Physician Assistant
DX: S22.009A Unspecified fracture of unspecified thoracic vertebra, initial encounter for closed fracture (principal); S22.42XA Multiple fractures of ribs, left side, initial encounter for closed fracture; W19.XXXA Unspecified fall, initial encounter
CPT/HCPCS: 71101; 99282; 99283

== ENCOUNTER 2019-07-18 11:56 | Day surgery (SDC) | payer OTHER, MEDICAID, SELFPAY ==
[2019-07-18 08:09] VITALS: BP 100/75; PULSE 85; RESP 14; O2SAT 96
[2019-07-18 12:20] VITALS: BP 143/95; PULSE 71; RESP 16; TEMP 36.6; O2SAT 95; BMI 27.3
[2019-07-18] MEDS: SODIUM CHLORIDE 0.9% 1,000 ML 200 ML IV ×2 (12:38→13:39)
--- NOTE | 2019-07-18 12:51 | PM.HP.1 ---
History of Present Illness History of Present Illness Date Patient Seen: 07/18/19 Time Patient Seen: 12:51 Chief complaint: [id number] Narrative: This is a 48-year-old man who has never had a screening colonoscopy. He denies any personal history of melena, hematochezia, abdominal pain, or unexplained weight loss. He has no known family history of colon cancer. He complains of completely obstructing nasal polyps, and a prior history of surgery on his lower back diffuse his L-spine and surgery on his left arm. He also has hypertension and seasonal allergies. ROS: Thirteen system review is negative other than as mentioned below and in HPI. PE: GENERAL: Well groomed and cooperative. Appears stated age. Answers questions promptly and appropriately. Vital signs noted. HENT: Normocephalic, atraumatic. Hearing intact. Oral mucosa is pink and moist. Nasal voice consistent with partially obstructed nasal airway EYES: Conjunctiva pink, sclera white, no periorbital swelling. CARDIOVASCULAR: Regular rate. No pedal edema. RESPIRATORY: Normal respiratory rate, breathing comfortably on room air. GASTROINTESTINAL: Abdomen soft and non-distended GENITALURINARY: No flank tenderness. MUSCULOSKELETAL: Equal tone and mass bilaterally. SKIN: Warm, dry, soft, appropriate color for ethnicity. No other lesions, rashes, or wounds. NEURO: Alert and Oriented X 3. No gross sensory deficits, or cognitive issues. PSYCH: Appropriate affect and mood. Patient History Medical History Allergic rhinitis (Chronic 1968) Anxiety (Chronic) Arm fracture, left (Acute 1990) Burst fracture of lumbar vertebra (Resolved 09/2015) Compression fracture of L2 (Resolved 09/2015) Depression (Chronic) Fractures (Resolved) Hearing loss (Chronic 1968) Hypertension (Chronic 2015) Hypogonadism (Chronic ~02/2016) Low back pain (Chronic) Nasal polyps (Resolved 1968) Osteoporosis (Chronic 1998) Partial blindness (Chronic 1968) Sleep apnea (Chronic Unknown) Substance abuse (Resolved 1999) Surgical History History of back surgery (Resolved 09/2015) History of spinal fusion (2015) History of surgery on arm (Resolved 1990) Hx of nasal polypectomy (Resolved ~1985) Family & Social History Family History Brother Age: 52 Hypertension Brother Hypertension Mother Age: 75 Hypertension Sister Age: 57 Diabetes mellitus Hypertension Sister Age: 59 Diabetes mellitus Hypertension Father Cancer Social History: household members none Tobacco & Substance use: Smoking Status Never smoker alcohol intake current alcohol intake frequency holiday/special occasion Substance Use Type does not use Meds Home Medications and Allergies Home Medications Medication Instructions Recorded Confirmed Type amlodipine 10 mg PO DAILY #30 tab 04/12/19 07/18/19 Rx ibuprofen 600 mg tablet 600 mg PO Q6H PRN #30 tab 04/26/19 07/18/19 Rx testosterone 6 pump TRANSDERMAL QAM gram 04/26/19 07/18/19 History loratadine 10 mg tablet 10 mg PO DAILY PRN #90 tab 06/08/19 07/18/19 Rx Allergies Allergy/AdvReac Type Severity Reaction Status Date / Time aspirin [ASPIRIN] Allergy Severe Swollen Verified 07/18/19 12:18 head and upper respiratory distress at age 2 Penicillins [PENICILLINS] Allergy Unknown mom was Verified 07/18/19 12:18 told I was allergic to penicillin same as aspirin. Exam Vital Signs (past 8 hours): - 07/18/19 12:20 Temperature 97.9 F Pulse Rate 71 Respiratory Rate 16 Blood Pressure 143/95 H Pulse Oximetry 95 Oxygen Delivery Method Room Air Assessment & Plan Assessment and plan (1) At average risk for colon cancer: Current visit: Yes Status: Acute (2) Encounter for screening colonoscopy: Current visit: Yes Status: Acute Assessment & Plan narrative: Risks and benefits of screening colonoscopy and possible polypectomy were discussed with the patient including risk of bleeding, perforation, need for additional procedures. The patient desires to proceed with colonoscopy. Time Spent With Patient Time with patient: 15-24 minutes Quality VTE Deep Vein Thrombosis/Pulmonary Embolism Present on Admission: No
[2019-07-18] MEDS: MIDAZOLAM 5 MG/5 ML VIAL IV (13:34)
[2019-07-18] MEDS: fentaNYL 250 MCG/5 ML INJ IV (13:34)
--- NOTE | 2019-07-18 13:49 | PM.OP.ENDO ---
Operative Date/Time/Diagnoses Date of procedure: 07/18/19 Time of procedure: 13:49 Pre-op diagnosis: Average risk for colon cancer Post-op diagnosis: other (Diverticulosis) Procedure & Clinicians Study performed: Screening colonoscopy Same procedure as scheduled: Yes Indications: Average risk for colon cancer Surgeon: Migdalia Avery Procedure Notes SCOAP/Timeout: Performed Procedure in detail: The patient was brought to the room and placed in left lateral decubitus position with all bony prominences padded. A time-out was performed and then the patient was given procedural sedation starting with [4] mg of Versed and [100] mcg of fentanyl. Vitals were monitored throughout the procedure and remained stable. Once adequately sedated the procedure was begun. A rectal exam was performed revealing [no abnormalities]. The colonoscope was then introduced to the rectum and advanced to the cecum in the usual fashion. []The cecum was identified by the appendiceal orifice, the mucosal try fold, and the ileocecal valve. The scope was then retracted while rotating side to side and examining each mucosal fold. [The prep was moderate in the right colon, and poor in the descending and sigmoid colon. I did a lot of power wash and suction, but could not get an adequate view to verify that there are no small polyps that could be missed. He also had moderate to severe diverticulosis throughout the descending and sigmoid colon.] At the conclusion procedure retroflexion was performed and [small grade 1-2 internal hemorrhoids without stigmata of bleeding were seen]. The scope was then withdrawn from the rectum the procedure was concluded. The patient tolerated the procedure well was transferred to the PACU in stable condition. Scope withdrawal time: 10 Sedation minutes: 39 Findings: diverticulosis Specimen(s): none sent Complications: none Impression: Moderate diverticulosis, poor prep Post-procedure Recommendations: Colonscopy in 5 years (Due to poor prep. Small polyps could have been missed, so repeat colonoscopy should be done in 5 years with 2 day prep.) Follow up: as needed Disposition: PACU
[2019-07-18 13:54] VITALS: BP 122/82; PULSE 66; RESP 23; O2SAT 97
[2019-07-18 13:59] VITALS: BP 121/82; PULSE 60; RESP 14; O2SAT 94
[2019-07-18 14:04] VITALS: BP 130/83; PULSE 58; RESP 14; O2SAT 95
--- NOTE | 2019-07-18 14:13 | SUR.PHASEI ---
HOB elevated, juice given, Denies pain
[2019-07-18 14:14] VITALS: BP 140/88; PULSE 81; RESP 12; O2SAT 95
--- NOTE | 2019-07-18 14:39 | SUR.PHASEII ---
Pt was able to reach his ride, IV dc'd
--- NOTE | 2019-07-18 14:44 | SUR.PHASEII ---
Tolerating PO well, Clothes given
== END 2019-07-18 14:49 | disposition home or self-care (01) ==
PROVIDERS: Family Provider Physician Assistant; PCP Physician Assistant; Visit Provider Surgery
PROC: 0DJD8ZZ Inspection of Lower Intestinal Tract, Via Natural or Artificial Opening Endoscopic (ICD-10-PCS; CPT 45378; principal; 2019-07-18 13:00)
DX: Z12.11 Encounter for screening for malignant neoplasm of colon (principal); F41.9 Anxiety disorder, unspecified; K57.30 Diverticulosis of large intestine without perforation or abscess without bleeding; K64.0 First degree hemorrhoids; I10 Essential (primary) hypertension
CPT/HCPCS: 45378; 99152; 99153; J2250; J3010

== ENCOUNTER → 2019-09-19 14:01 | Outpatient (CLI) | payer OTHER, MEDICAID, SELFPAY ==
[2019-09-19 14:39] LABS: Add Manual Diff / Slide Review NO; Basophils Absolute Auto 0 /uL (0-100); Basophils Percent Auto 0.8 % (0-2); Eosinophils Absolute Auto 600 /uL (0-450); Eosinophils Percent Auto 11.4 % (2-4); Hematocrit 39.1 % (41-53); Hemoglobin 13.5 g/dL (13.5-17.5); Lymphocytes Absolute Auto 1900 /uL (1100-4500); Mean Corpuscular HGB Conc 34.6 % (30-36); Mean Corpuscular Hemoglobin 31.3 PG (26-34); Mean Corpuscular Volume 90.4 fL (80-100); Monocytes Absolute Auto 500 /uL (0-900); Neutrophils Absolute Auto 2500 /uL (1500-7000); Neutrophils Percent Auto 44.8 % (50-75); Platelet Count 210 X10^3/uL (150-400); Red Blood Cell Count 4.33 X10^6/uL (4.5-5.9); Red Cell Distribution Width 13.7 % (11.6-14.8); White Blood Cell Count 5.5 X10^3/uL (4.5-11.0)
[2019-09-19 15:29] LABS: Alanine Aminotransferase 25 IU/L (<50); Albumin 4.2 g/dL (3.5-5.0); Albumin Globulin Ratio 1.2 (1.0-2.8); Alkaline Phosphatase 134 U/L (38-126); Aspartate Aminotransferase 27 IU/L (17-59); BUN Creatinine Ratio 21.1 (6-22); Blood Urea Nitrogen 19 mg/dL (9-20); Calcium 9.8 mg/dL (8.4-10.2); Carbon Dioxide 26 mmol/L (22-32); Chloride 103 mmol/L (98-107); Estimated Glomerular Filt Rate > 60.0 mL/min (>60); Globulin 3.6 g/dL (1.7-4.1); Glucose 103 mg/dL (70-100); HEMOLYSIS < 15 (0-50); Potassium 3.8 mmol/L (3.4-5.1); Sodium 139 mmol/L (137-145); Total Protein 7.8 g/dL (6.3-8.2)
== END ==
PROVIDERS: PCP Physician Assistant; Visit Provider Physician Assistant
DX: I10 Essential (primary) hypertension (principal); R74.8 Abnormal levels of other serum enzymes; R79.89 Other specified abnormal findings of blood chemistry
CPT/HCPCS: 36415; 80053; 85025

== ENCOUNTER 2019-12-15 07:50 | Emergency (ER) | payer OTHER, MEDICAID, SELFPAY ==
[2019-12-15 08:09] VITALS: BP 177/114; PULSE 80; RESP 18; TEMP 36.7; O2SAT 99; BMI 28.3
--- NOTE | 2019-12-15 08:18 | ED.HA ---
HPI - Headache General Chief Complaint: Headache Stated Complaint: Trent in your head feeling Lt timple Time Seen by Provider: 12/15/19 07:53 Mode of arrival: Family Vehicle Limitations: no limitations History of Present Illness HPI Narrative: CC: Is stabbing spike like headache in the left gnosticist HPI: The patient is a 49-year-old male who states that he is having a sufficient her pounding spike like stabbing headache in his left gnosticist. He states that he has had it for at least the last 2-3 days prior to admission. The pain and discomfort ranges from 2/10 in intensity. He denies any fall or injury. He has had similar headaches in the past. He has not been formally diagnosed to have migraines. The headache is intermittently pounding and varies in intensity but is constant. He denies any fall or injury to his head. He has had no numbness tingling paresthesias anesthesia is pre cysts or paralysis. He has had no loss of vision no scotomata no diplopia. He does complain of intermittently blurred vision. He denies a history of trigeminal neuralgia or temporal arteritis. He has had no history of any lupus rheumatoid arthritis or any other autoimmune diseases. He does have hypertension and has been out of his amlodipine for at least 4-5 days. He believes his headache may be secondary to his hypertension. The patient denies smoking cigarettes drinks alcohol rarely and does not use any drugs. He primarily is sleeping in his car and is homeless. He states that he has mold in his car. He denies any fever chills sweats numbness tingling paresthesias anesthesia is paresis or paralysis. He has had no sore throat or sinus congestion. He has had a mild intermittent dry unproductive cough. He denies any chest pain or significant shortness of breath abdominal pain nausea vomiting diarrhea or troubles urinating. Related Data Home Medications Medication Instructions Recorded Confirmed testosterone 6 pump TRANSDERMAL QAM gram 04/26/19 09/29/19 Previous Rx's Medication Instructions Recorded amlodipine 10 mg PO DAILY #30 tab 04/12/19 ibuprofen 600 mg tablet 600 mg PO Q6H PRN #30 tab 04/26/19 loratadine 10 mg tablet 10 mg PO DAILY PRN #90 tab 06/08/19 amlodipine 10 mg PO DAILY #20 tab 04/24/20 ibuprofen 600 mg PO Q6H PRN #30 tab 12/15/19 Allergies Allergy/AdvReac Type Severity Reaction Status Date / Time aspirin [ASPIRIN] Allergy Severe Swollen Verified 07/18/19 12:18 head and upper respiratory distress at age 2 Penicillins [PENICILLINS] Allergy Unknown mom was Verified 07/18/19 12:18 told I was allergic to penicillin same as aspirin. Review of Systems Review of Systems Narrative: Review of systems are all negative except for those mentioned in the history of present illness Patient History Medical History Allergic rhinitis (Chronic 1968) Anemia (Acute) Anxiety (Chronic) Arm fracture, left (Acute 1990) Burst fracture of lumbar vertebra (Resolved 09/2015) Compression fracture of L2 (Resolved 09/2015) Depression (Chronic) Fractures (Resolved) Hearing loss (Chronic 1968) Hypertension (Chronic 2015) Hypogonadism (Chronic ~02/2016) Low back pain (Chronic) Nasal polyps (Resolved 1968) Osteoporosis (Chronic 1998) Partial blindness (Chronic 1968) Sleep apnea (Chronic Unknown) Substance abuse (Resolved 1999) Surgical History History of back surgery (Resolved 09/2015) History of spinal fusion (2015) History of surgery on arm (Resolved 1990) Hx of nasal polypectomy (Resolved ~1985) Family History Brother Age: 53 Hypertension Brother Hypertension Mother Age: 76 Hypertension Sister Age: 58 Diabetes mellitus Hypertension Sister Age: 60 Diabetes mellitus Hypertension Father Cancer Social History household members: none Smoking Status: Never smoker second hand exposure: Yes (once in a while. ) alcohol intake: current substance use type: marijuana Smoking Status: Never smoker alcohol intake frequency: 0-2 drinks per day Substance Use Type: does not use Exam Narrative Exam Narrative: PHYSICAL EXAM: CONSTITUTIONAL: Awake, Alert, Oriented, Coherent, Cooperative in NAD. Does not appear toxic or ill. He holds his eyes partially closed and is holding his left gnosticist. HEAD: AT/NC, there is no palpable swelling deformity bruising noted over the left gnosticist. His left gnosticist is tender to palpation but no palpable nodularity. He states that sometimes after the pressure has been placed on the gnosticist his headache and discomfort seems to be partially relieved. EENT: PERRL, FROM of eyes, no discharge, no nystagmus, he has a mild dysconjugate gaze No drainage from the ears, left external auditory canal is occluded with cerumen right tympanic membrane is intact without erythema. No epistaxis or nasal drainage Oral mucosa is moist and pink, posterior pharynx is without erythema or exudate. NECK: Supple, no obvious JVD, Trachea is midline without stridor, no palpable LN or masses. SPINE: No gross deformity, no palpable tenderness of the cervical, thoracic, lumbar or sacral spine. No CVA tenderness. The patient has a scar over his left posterior lateral costovertebral angle secondary to a spa spinal fusion. THORAX: No deformity, retractions, chest wall tenderness, subcutaneous air or crepitice. LUNGS: Clear with symmetrical breath sounds without respiratory distress HEART: Normal heart tones, regular rhythm and rate without murmur. Distant heart tones ABDOMEN: Soft, non-tender, normal bowel sounds without guarding, rebound, rigidity or palpable mass EXTREMITIES: No edema, or tenderness. SKIN: No rash, bruising, petechiae or purpura. NEURO: Awake, alert, oriented, conversive, cranial nerves II-XII are symmetrical and normal, moves all 4 extremities and is ambulatory. Rapid alternating motions and cerebellar functions are within normal limits. Initial Vital Signs Initial Vital Signs: Vital Signs Temperature 98.1 F 12/15/19 08:09 Pulse Rate 80 12/15/19 08:09 Respiratory Rate 18 12/15/19 08:09 Blood Pressure 177/114 H 12/15/19 08:09 Pulse Oximetry 99 12/15/19 08:09 Course Course Course Narrative: 0826: The patient states that he took aspirin as a child and was reported to have swelled up according to his mother. The patient subsequently has been able to take Naprosyn and ibuprofen without any problems. 0908: Repeat blood pressure is 175/91. He is sleeping comfortably at this time. Will administer an additional dose of hydralazine 5 mg IV push. The patient states that his headache is most often a 1 or a 2 except when it is a lancinating stabbing spiking pain at which time it feels like it is 10/10 in nature. The patient will be given a prescription for amlodipine 10 mg daily and instructed to follow-up with his primary care physician to get his medications renewed. He was advised that if he develops any other symptoms changes in vision or anything like that he needs to return to the emergency department. Orders Ordered: ED Orders 12/15/19 08:30 C-Reactive Protein Quant Stat Complete Blood Count AUTO DIFF Stat Comprehensive Metabolic Panel Stat Erythrocyte Sedimentation Rate Stat Discontinued Medications Diphenhydramine HCl (Benadryl) 25 mg IV NOW ONE Stop: 12/15/19 08:15 Last Admin: 12/15/19 08:43 Dose: 25 mg Documented by: BHAVIK Hydralazine HCl (Apresoline) 5 mg IV NOW ONE Stop: 12/15/19 08:19 Last Admin: 12/15/19 08:37 Dose: 5 mg Documented by: BHAVIK Hydralazine HCl (Apresoline) 5 mg IV NOW ONE Stop: 12/15/19 09:10 Last Admin: 12/15/19 09:23 Dose: 5 mg Documented by: YONATAN Ketorolac Tromethamine (Toradol) 30 mg IV NOW ONE Stop: 12/15/19 08:15 Last Admin: 12/15/19 08:42 Dose: 30 mg Documented by: BHAVIK Methylprednisolone (Solu-Medrol 125 Mg Vial) 125 mg IV NOW ONE Stop: 12/15/19 08:15 Last Admin: 12/15/19 08:42 Dose: 125 mg Documented by: BHAVIK Metoclopramide HCl (Reglan) 10 mg IV NOW ONE Stop: 12/15/19 08:15 Last Admin: 12/15/19 08:42 Dose: 10 mg Documented by: BHAVIK Vital Signs Vital signs: Vital Signs - 8 hr 12/15/19 08:09 12/15/19 08:37 12/15/19 09:32 Temperature 98.1 F Pulse Rate 80 80 86 Respiratory Rate 18 18 Blood Pressure 177/114 H 177/114 H Blood Pressure [Left Arm] 151/86 H Pulse Oximetry 99 99 MDM - Headache Lab Data Result diagrams: 12/15/19 08:30 12/15/19 08:30 Labs: Lab Results 12/15/19 12/15/19 Range/Units 08:30 08:30 WBC 6.8 (4.5-11.0) X10^3/uL RBC 4.66 (4.5-5.9) X10^6/uL Hgb 14.8 (13.5-17.5) g/dL Hct 42.4 (41-53) % MCV 91.0 (80-100) fL MCH 31.7 (26-34) PG MCHC 34.9 (30-36) % RDW 12.4 (11.6-14.8) % Plt Count 191 (150-400) X10^3/uL Neut % (Auto) 69.7 (50-75) % Lymph % (Auto) 20.0 L (25-40) % [place] % (Auto) 4.8 (3-14) % Eos % (Auto) 4.9 H (2-4) % Baso % (Auto) 0.6 (0-2) % Neut # (Auto) 4700 (4644-4555) /uL Lymph # (Auto) 1300 (8217-3663) /uL [place] # (Auto) 300 (0-900) /uL Eos # (Auto) 300 (0-450) /uL Baso # (Auto) 0 (0-100) /uL ESR 14 (0-15) MM/HR Sodium 141 (137-145) mmol/L Potassium 3.2 L (3.4-5.1) mmol/L Chloride 104 (98-107) mmol/L Carbon Dioxide 29 (22-32) mmol/L BUN 12 (9-20) mg/dL Creatinine 0.63 L (0.66-1.25) mg/dL Estimated GFR > 60.0 (>60) mL/min BUN/Creatinine Ratio 19.0 (6-22) Glucose 141 H (70-100) mg/dL Calcium 9.5 (8.4-10.2) mg/dL Total Bilirubin 0.6 (0.2-1.3) mg/dL AST 26 (17-59) IU/L ALT 19 (<50) IU/L Alkaline Phosphatase 151 H (38-126) U/L C-Reactive Protein < 0.5 (<1.0) mg/dL Total Protein 8.4 H (6.3-8.2) g/dL Albumin 4.3 (3.5-5.0) g/dL Globulin 4.1 (1.7-4.1) g/dL Albumin/Globulin Ratio 1.0 (1.0-2.8) Discharge Plan Departure Patient Disposition: Home Clinical Impression: Essential hypertension Headache Qualifiers: Headache type: primary stabbing headache Qualified Code(s): G44.85 - Primary stabbing headache Discharge Date/Time: 12/15/19 09:56 Instructions: Essential Hypertension, DI for Migraine, DI for Headache Activity Restrictions/Additional Instructions: 1. Follow-up with your primary care physician to reassess your blood pressure in have your blood pressure medicines renewed. 2. Return to the emergency department if you develop worsening headache or associated visual symptoms such is blind spots in your vision loss of vision double vision, numbness tingling loss of sensation. 3. Take the amlodipine 10 mg daily as needed. Prescriptions: New amlodipine 10 mg tablet 10 mg PO DAILY Qty: 20 RF: 0 ibuprofen 600 mg tablet 600 mg PO Q6H PRN (Reason: pain) Qty: 30 RF: 0 No Action loratadine [Claritin] 10 mg tablet 10 mg PO DAILY PRN (Reason: allergy symptoms) Qty: 90 RF: 1 testosterone 10 mg/0.5 gram /actuation gel in metered-dose pump 6 pump transdermal QAM RF: 0 ibuprofen 600 mg tablet 600 mg PO Q6H PRN (Reason: pain) Qty: 30 RF: 0 amlodipine 10 mg tablet 10 mg PO DAILY Qty: 30 RF: 0 Referrals: Fabiola Elizabeth PA-C [Primary Care Provider] -
[2019-12-15 08:37] VITALS: BP 177/114; PULSE 80
[2019-12-15] MEDS: HYDRALAZINE 20 MG/ML VIAL 5 MG IV ×2 (08:37→09:23)
[2019-12-15 08:38] LABS: Add Manual Diff / Slide Review NO; Basophils Absolute Auto 0 /uL (0-100); Basophils Percent Auto 0.6 % (0-2); Eosinophils Absolute Auto 300 /uL (0-450); Eosinophils Percent Auto 4.9 % (2-4); Hematocrit 42.4 % (41-53); Hemoglobin 14.8 g/dL (13.5-17.5); Lymphocytes Absolute Auto 1300 /uL (1100-4500); Mean Corpuscular HGB Conc 34.9 % (30-36); Mean Corpuscular Hemoglobin 31.7 PG (26-34); Monocytes Absolute Auto 300 /uL (0-900); Monocytes Percent Auto 4.8 % (3-14); Neutrophils Absolute Auto 4700 /uL (1500-7000); Neutrophils Percent Auto 69.7 % (50-75); Platelet Count 191 X10^3/uL (150-400); Red Blood Cell Count 4.66 X10^6/uL (4.5-5.9); Red Cell Distribution Width 12.4 % (11.6-14.8); White Blood Cell Count 6.8 X10^3/uL (4.5-11.0)
[2019-12-15] MEDS: KETOROLAC 60 MG/2 ML VIAL 30 MG IV (08:42)
[2019-12-15] MEDS: METOCLOPRAMIDE 10 MG/2 ML INJ IV (08:42)
[2019-12-15] MEDS: methylPREDNISolone 125 MG/2 ML VIAL IV (08:42)
[2019-12-15] MEDS: diphenhydrAMINE 50 MG/ML VIAL 25 MG IV (08:43)
[2019-12-15 08:55] LABS: Alanine Aminotransferase 19 IU/L (<50); Albumin 4.3 g/dL (3.5-5.0); Alkaline Phosphatase 151 U/L (38-126); Aspartate Aminotransferase 26 IU/L (17-59); Bilirubin Total 0.6 mg/dL (0.2-1.3); Blood Urea Nitrogen 12 mg/dL (9-20); Calcium 9.5 mg/dL (8.4-10.2); Carbon Dioxide 29 mmol/L (22-32); Chloride 104 mmol/L (98-107); Estimated Glomerular Filt Rate > 60.0 mL/min (>60); Globulin 4.1 g/dL (1.7-4.1); Glucose 141 mg/dL (70-100); HEMOLYSIS 16 (0-50); Potassium 3.2 mmol/L (3.4-5.1); Sodium 141 mmol/L (137-145); Total Protein 8.4 g/dL (6.3-8.2)
[2019-12-15 09:08] LABS: Erythrocyte Sedimentation Rate 14 MM/HR (0-15)
[2019-12-15 09:09] LABS: C-Reactive Protein Quant < 0.5 mg/dL (<1.0)
[2019-12-15 09:32] VITALS: BP 151/86; PULSE 86; RESP 18; O2SAT 99
== END 2019-12-15 09:56 | disposition home or self-care (01) ==
PROVIDERS: Emergency Provider Emergency Medicine; PCP Physician Assistant
DX: G44.85 Primary stabbing headache (principal); I10 Essential (primary) hypertension
CPT/HCPCS: 36415; 80053; 85025; 85651; 86140; 96374; 96375; 96376; 99284; J0360; J1200; J1885; J2765; J2930

== ENCOUNTER 2020-03-22 01:46 | Emergency (ER) | payer OTHER, MEDICAID, SELFPAY ==
[2020-03-22] VITALS (9 sets, daily range): BP systolic 142–149; BP diastolic 91–96; PULSE 77–108; RESP 21–29; TEMP 36.4; O2SAT 92–97; BMI 34.3
--- NOTE | 2020-03-22 01:58 | ED.GENADULT ---
HPI - General Adult General Chief complaint: Shortness of Breath/Dyspnea Stated complaint: shortness of breath, coughing, headache x 2 wks Time Seen by Provider: 03/22/20 01:57 History of Present Illness HPI narrative: 49-year-old gentleman with a history of hypertension presents reporting a cough for the last 2 weeks with severe headache stabbing into the left scientologist for the last 24 hours as well as nasal congestion. States that he does not have a history of COPD but did have asthma as a child. He reports that he currently is living with people who are smokers and he thought the cough is from secondhand smoke. Has not noted fever, vomiting, diarrhea, abdominal pain and reports no chest pain despite fairly violent cough and coughing episode here in the emergency department. Says that he is prescribed amlodipine which she has continued to take he has noted worsening lower extremity edema over the last number of weeks. Related Data Home Medications Medication Instructions Recorded Confirmed testosterone 6 pump TRANSDERMAL QAM gram 04/26/19 09/29/19 Previous Rx's Medication Instructions Recorded amlodipine 10 mg PO DAILY #30 tab 04/12/19 ibuprofen 600 mg tablet 600 mg PO Q6H PRN #30 tab 04/26/19 loratadine 10 mg tablet 10 mg PO DAILY PRN #90 tab 06/08/19 ibuprofen 600 mg PO Q6H PRN #30 tab 12/15/19 amlodipine 10 mg tablet 10 mg PO DAILY #90 tab 03/08/20 dextromethorphan HBr [Tussin Cough 15 mg PO Q8H PRN #118 ml 03/22/20 (DM only)] prednisone 40 mg PO DAILY #8 tab 03/22/20 Allergies Allergy/AdvReac Type Severity Reaction Status Date / Time aspirin [ASPIRIN] Allergy Severe Swollen Verified 07/18/19 12:18 head and upper respiratory distress at age 2 Penicillins [PENICILLINS] Allergy Unknown mom was Verified 07/18/19 12:18 told I was allergic to penicillin same as aspirin. Review of Systems Review of Systems Narrative: Pertinent positive and negative findings as per HPI Remainder of review of systems is otherwise unremarkable for Constitutional: Fevers, chills, weakness ENT: No sore throat, neck pain, ear pain CV: Chest pain, palpitations, GI: Nausea, vomiting, diarrhea, change in bowel habits, : Dysuria, hematuria, flank pain MS: Muscle weakness, numbness, joint swelling or warmth Neuro: Syncope, dizziness, tingling Patient History Medical History Allergic rhinitis (Chronic 1968) Anemia (Acute) Anxiety (Chronic) Arm fracture, left (Acute 1990) Burst fracture of lumbar vertebra (Resolved 09/2015) Compression fracture of L2 (Resolved 09/2015) Depression (Chronic) Fractures (Resolved) Hearing loss (Chronic 1968) Hypertension (Chronic 2015) Hypogonadism (Chronic ~02/2016) Low back pain (Chronic) Nasal polyps (Resolved 1968) Osteoporosis (Chronic 1998) Partial blindness (Chronic 1968) Sleep apnea (Chronic Unknown) Substance abuse (Resolved 1999) Surgical History History of back surgery (Resolved 09/2015) History of spinal fusion (2015) History of surgery on arm (Resolved 1990) Hx of nasal polypectomy (Resolved ~1985) Family History Brother Age: 53 Hypertension Brother Hypertension Mother Age: 76 Hypertension Sister Age: 58 Diabetes mellitus Hypertension Sister Age: 60 Diabetes mellitus Hypertension Father Cancer Social History household members: none Smoking Status: Never smoker second hand exposure: Yes (once in a while. ) alcohol intake: current substance use type: marijuana Smoking Status: Never smoker alcohol intake frequency: 0-2 drinks per day Substance Use Type: does not use Exam Narrative Exam Narrative: General: Severe coughing fits with nasal congestion and what sounds like productive cough, diaphoretic and moderate distress due to the severity of the coughing HEENT: Moist mucous membranes, normal sclera with reactive pupils, nasal discharge Neck: , supple Respiratory: Lungs with wheezes throughout and rhonchi in both bases. He is not using accessory muscles Full and symmetrical air movement Cardiac: Tachycardic with Regular rate and rhythm no murmurs no bruits Abdomen: Soft nontender good bowel tones, no flank pain Skin: Mildly diaphoretic with multiple areas of small nonhealing wounds consistent with ?picking? Neurologic: Grossly neurologically intact with no obvious asymmetries or abnormalities Extremities: No trauma, bilateral 2+ lower extremity edema Psych: Disinterested affect, fluent speech, no obvious evidence of auditory or visual hallucinations Initial Vital Signs Initial Vital Signs: Vital Signs Pulse Oximetry 93 03/22/20 01:51 Course Orders Ordered: ED Orders 03/22/20 02:00 Complete Blood Count AUTO DIFF Stat Comprehensive Metabolic Panel Stat Lactate (Lactic Acid) Stat NT-proBNP (BNP-Adult 18+) Stat Procalcitonin Stat Troponin I Stat 03/22/20 02:17 XR chest 1V Stat 03/22/20 02:18 EKG-12 Lead Stat 03/22/20 02:30 Urine Drug Screen, Rapid Stat 03/22/20 02:32 Blood Culture Stat Discontinued Medications Albuterol (Ventolin Hfa (Vent/Covid R/O)) 1 puff INH NOW ONE Stop: 03/22/20 02:06 Last Admin: 03/22/20 02:19 Dose: Not Given Documented by: LAURO Albuterol (Ventolin Hfa Prepack) 1 box MISC SEEINSTR ONE Stop: 03/22/20 02:16 Last Admin: 03/22/20 02:18 Dose: 1 box Documented by: LAURO Benzonatate (Tessalon Perles) 100 mg PO NOW ONE Stop: 03/22/20 03:24 Last Admin: 03/22/20 03:38 Dose: 100 mg Documented by: ANDREW Ceftriaxone Sodium/Dextrose (Rocephin) 2 gm in 50 mls @ 100 mls/hr IV NOW ONE Stop: 03/22/20 02:46 Last Infusion: 03/22/20 02:56 Dose: 0 mls/hr Documented by: Admin: 03/22/20 02:27 Dose: 100 mls/hr Documented by: KIRILLL Sodium Chloride (Normal Saline 0.9%) 1,000 mls @ 1,000 mls/hr IV BOLUS ONE Stop: 03/22/20 03:16 Last Admin: 03/22/20 02:26 Dose: 1,000 mls/hr Documented by: ANDREW Ketorolac Tromethamine (Toradol) 15 mg IV NOW ONE Stop: 03/22/20 02:18 Last Admin: 03/22/20 02:26 Dose: 15 mg Documented by: ANDREW Methylprednisolone (Solu-Medrol 125 Mg Vial) 125 mg IV NOW ONE Stop: 03/22/20 03:24 Last Admin: 03/22/20 03:31 Dose: 125 mg Documented by: MMCFARL Vital Signs Vital signs: Vital Signs - 8 hr 03/22/20 01:51 03/22/20 01:54 03/22/20 01:58 Temperature 97.6 F Pulse Rate 92 H 97 H Respiratory Rate 29 H Blood Pressure 144/92 H 144/92 H Pulse Oximetry 93 94 92 03/22/20 02:00 03/22/20 02:29 03/22/20 02:30 Temperature Pulse Rate 108 H 86 86 Respiratory Rate Blood Pressure Pulse Oximetry 93 97 96 03/22/20 02:58 03/22/20 03:00 Temperature Pulse Rate 88 77 Respiratory Rate Blood Pressure 142/96 H 149/91 H Pulse Oximetry 93 96 Medical Decision Making Medical Records Medical records reviewed: Yes I reviewed the patient's medical records. Lab Data Lab results reviewed: Yes I reviewed the patient's lab results. Result diagrams: 03/22/20 02:00 03/22/20 02:00 Labs: Lab Results 03/22/20 03/22/20 03/22/20 Range/Units 02:00 02:00 02:00 WBC 7.6 (4.5-11.0) X10^3/uL RBC 4.62 (4.5-5.9) X10^6/uL Hgb 14.3 (13.5-17.5) g/dL Hct 41.9 (41-53) % MCV 90.6 (80-100) fL MCH 31.0 (26-34) PG MCHC 34.2 (30-36) % RDW 13.3 (11.6-14.8) % Plt Count 224 (150-400) X10^3/uL Neut % (Auto) 49.2 L (50-75) % Lymph % (Auto) 28.3 (25-40) % [place] % (Auto) 7.7 (3-14) % Eos % (Auto) 13.4 H (2-4) % Baso % (Auto) 1.4 (0-2) % Neut # (Auto) 3700 (7303-5008) /uL Lymph # (Auto) 2100 (6481-0864) /uL [place] # (Auto) 600 (0-900) /uL Eos # (Auto) 1000 H (0-450) /uL Baso # (Auto) 100 (0-100) /uL Sodium 141 (137-145) mmol/L Potassium 3.7 (3.4-5.1) mmol/L Chloride 108 H (98-107) mmol/L Carbon Dioxide 28 (22-32) mmol/L BUN 16 (9-20) mg/dL Creatinine 0.72 (0.66-1.25) mg/dL Estimated GFR > 60.0 (>60) mL/min BUN/Creatinine Ratio 22.2 H (6-22) Glucose 98 (70-100) mg/dL Lactate (0.7-2.1) mmol/L Calcium 9.7 (8.4-10.2) mg/dL Total Bilirubin 0.8 (0.2-1.3) mg/dL AST 24 (17-59) IU/L ALT 18 (<50) IU/L Alkaline Phosphatase 148 H (38-126) U/L Troponin I < 0.012 (0.01-0.034) ng/mL NT-Pro-B Natriuret Pep 26 (<125) pg/mL Total Protein 8.0 (6.3-8.2) g/dL Albumin 4.4 (3.5-5.0) g/dL Globulin 3.6 (1.7-4.1) g/dL Albumin/Globulin Ratio 1.2 (1.0-2.8) Procalcitonin < 0.05 (<0.5) ng/mL U Opiates 300ng/mL cut (Negative) Ur Oxycodone Screen (Negative) Urine Methadone Screen (Negative) Ur Barbiturates Screen (Negative) U Tricyclic Antidepress (Negative) Ur Phencyclidine Scrn (Negative) Ur Amphetamines Screen (Negative) U Methamphetamines Scrn (Negative) Ur MDMA Scrn (Ecstasy) (Negative) U Benzodiazepines Scrn (Negative) Urine Cocaine Screen (Negative) U Marijuana (THC) Screen (Negative) 03/22/20 03/22/20 Range/Units 02:00 02:30 WBC (4.5-11.0) X10^3/uL RBC (4.5-5.9) X10^6/uL Hgb (13.5-17.5) g/dL Hct (41-53) % MCV (80-100) fL MCH (26-34) PG MCHC (30-36) % RDW (11.6-14.8) % Plt Count (150-400) X10^3/uL Neut % (Auto) (50-75) % Lymph % (Auto) (25-40) % [place] % (Auto) (3-14) % Eos % (Auto) (2-4) % Baso % (Auto) (0-2) % Neut # (Auto) (5927-1175) /uL Lymph # (Auto) (1869-1428) /uL [place] # (Auto) (0-900) /uL Eos # (Auto) (0-450) /uL Baso # (Auto) (0-100) /uL Sodium (137-145) mmol/L Potassium (3.4-5.1) mmol/L Chloride (98-107) mmol/L Carbon Dioxide (22-32) mmol/L BUN (9-20) mg/dL Creatinine (0.66-1.25) mg/dL Estimated GFR (>60) mL/min BUN/Creatinine Ratio (6-22) Glucose (70-100) mg/dL Lactate 0.9 (0.7-2.1) mmol/L Calcium (8.4-10.2) mg/dL Total Bilirubin (0.2-1.3) mg/dL AST (17-59) IU/L ALT (<50) IU/L Alkaline Phosphatase (38-126) U/L Troponin I (0.01-0.034) ng/mL NT-Pro-B Natriuret Pep (<125) pg/mL Total Protein (6.3-8.2) g/dL Albumin (3.5-5.0) g/dL Globulin (1.7-4.1) g/dL Albumin/Globulin Ratio (1.0-2.8) Procalcitonin (<0.5) ng/mL U Opiates 300ng/mL cut Positive H (Negative) Ur Oxycodone Screen Negative (Negative) Urine Methadone Screen Negative (Negative) Ur Barbiturates Screen Negative (Negative) U Tricyclic Antidepress Negative (Negative) Ur Phencyclidine Scrn Negative (Negative) Ur Amphetamines Screen Negative (Negative) U Methamphetamines Scrn Positive H (Negative) Ur MDMA Scrn (Ecstasy) Negative (Negative) U Benzodiazepines Scrn Negative (Negative) Urine Cocaine Screen Negative (Negative) U Marijuana (THC) Screen Negative (Negative) Urine Dip Bedside Urine Glucose Negative Bedside Urine Bilirubin - Negative Bedside Urine Ketone - Negative Urine Specific Krebs 1.015 Bedside Urine Occult Blood - Negative Bedside Urine pH 7.0 Bedside Urine Protein - Negative Bedside Urine Urobilinogen +/- 1mg Bedside Urine Nitrite - Negative Bedside Urine Leukocytes - Negative Esterase Point of care testing: Urine Dip Bedside Urine Glucose Negative Bedside Urine Bilirubin - Negative Bedside Urine Ketone - Negative Urine Specific Krebs 1.015 Bedside Urine Occult Blood - Negative Bedside Urine pH 7.0 Bedside Urine Protein - Negative Bedside Urine Urobilinogen +/- 1mg Bedside Urine Nitrite - Negative Bedside Urine Leukocytes - Negative Esterase Imaging Data Chest x-ray: Radiologist's Impression: Mild interstitial findings some peribronchial cuffing no acute infiltrates Normal cardiac silhouette and no pneumothorax. Similar to comparison EKG MDM Narrative Medical decision making narrative: 49-year-old gentleman presents with 2 weeks of coughing and 24 hours of severe left-sided headache presumably secondary to the severity of the cough. He is afebrile, labs are quite reassuring with no significantly elevated white blood cell count, procalcitonin or lactic acid. Bacterial pneumonia is less likely. Covid swab has been ordered. Opiate and methamphetamine or both noted on urine tox screen. Moderate response to albuterol MDI with spacer in terms of decreasing wheezing significant response in terms of decreasing cough. No concern for acute coronary syndrome and pulmonary embolism is less likely. Likely viral URI with significant reactive airway disease component. After MDI, heart rate has come down and oxygen saturations have come out significantly. IV steroids given in the emergency department. Will be discharged home with steroids, Tessalon Perles and albuterol MDI. Will recommend self isolation until Covid study returns tomorrow. Discharge Plan Departure Patient Disposition: Home Clinical Impression: Acute viral syndrome Exacerbation of reactive airway disease Qualifiers: Asthma severity: unspecified severity Asthma persistence: unspecified Qualified Code(s): J45.901 - Unspecified asthma with (acute) exacerbation Instructions: DI for Asthma -- Adult, DI for COVID-19 (Suspected or Confirmed ) Activity Restrictions/Additional Instructions: Thank you for coming in today Your workup shows that you do not have an acute bacterial pneumonia, blood clots in her lungs heart attack or collapsed lung. You certainly do have a component of wheezing and asthma and presumably viral upper respiratory infection. You have been tested for Covid tonight and results should be available tomorrow. You should assume that you are positive until results return. This means that you need to self quarantine and make sure that you are wearing your mask any time your around any other people in any setting at all. Please take 4 more days of prednisone to help with the reactive airway component. I have given you a prescription for Tussin Cough to help suppress your cough. 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 If you find that you are getting worse, developed fevers, worsening shortness of breath or new symptoms please return to the emergency room for further evaluation I am glad you are feeling better Prescriptions: New prednisone 20 mg tablet 40 mg PO DAILY Qty: 8 RF: 0 Tussin Cough (DM only) 15 mg/5 mL liquid 15 mg PO Q8H PRN (Reason: cough) Qty: 118 RF: 0 No Action loratadine [Claritin] 10 mg tablet 10 mg PO DAILY PRN (Reason: allergy symptoms) Qty: 90 RF: 1 amlodipine 10 mg tablet 10 mg PO DAILY Qty: 90 RF: 0 testosterone 10 mg/0.5 gram /actuation gel in metered-dose pump 6 pump transdermal QAM RF: 0 ibuprofen 600 mg tablet 600 mg PO Q6H PRN (Reason: pain) Qty: 30 RF: 0 amlodipine 10 mg tablet 10 mg PO DAILY Qty: 30 RF: 0 ibuprofen 600 mg tablet 600 mg PO Q6H PRN (Reason: pain) Qty: 30 RF: 0 Referrals: Fabiola Elizabeth PA-C [Primary Care Provider] -
--- NOTE | 2020-03-22 02:17 | DI.RAD.S_ITS ---
PROCEDURE: XR CHEST 1V INDICATIONS: Cough TECHNIQUE: One view of the chest was acquired. COMPARISON: [facility], CR, XR CHEST 1V, 04/12/2019, 20:12. FINDINGS: Surgical changes and devices: None. Lungs and pleura: Lungs are abnormal with interstitial prominence and possible superimposition of mild pulmonary edema. Lung volumes are large, COPD is suspected.. No pleural effusions or pneumothorax. Mediastinum: Mediastinal contours appear normal. Heart size is is at the upper limits of normal. Bones and chest wall: No suspicious bony lesions. Overlying soft tissues appear unremarkable. IMPRESSION: Heart size at the upper limits of normal, interstitial prominence with possible superimposed mild pulmonary edema. Suspect COPD. No definite pneumonia seen. Dictated by: Eber Wills M.D. on 03/22/2020 at 8:31 Approved by: Eber Wills M.D. on 03/22/2020 at 8:32
[2020-03-22] MEDS: ALBUTEROL HFA PREPACK 1 BOX MISC (02:18)
[2020-03-22] MEDS: SODIUM CHLORIDE 0.9% 1,000 ML 1000 ML IV (02:26)
[2020-03-22] MEDS: KETOROLAC 60 MG/2 ML VIAL 15 MG IV (02:26)
[2020-03-22] MEDS: CEFTRIAXONE 2 GM/50 ML FROZ.PIGGY IV (02:27)
[2020-03-22 02:32] LABS: Lactate (Lactic Acid) 0.9 mmol/L (0.7-2.1)
[2020-03-22 02:33] LABS: Alanine Aminotransferase 18 IU/L (<50); Albumin 4.4 g/dL (3.5-5.0); Albumin Globulin Ratio 1.2 (1.0-2.8); Alkaline Phosphatase 148 U/L (38-126); Aspartate Aminotransferase 24 IU/L (17-59); BUN Creatinine Ratio 22.2 (6-22); Bilirubin Total 0.8 mg/dL (0.2-1.3); Blood Urea Nitrogen 16 mg/dL (9-20); Calcium 9.7 mg/dL (8.4-10.2); Carbon Dioxide 28 mmol/L (22-32); Chloride 108 mmol/L (98-107); Estimated Glomerular Filt Rate > 60.0 mL/min (>60); Globulin 3.6 g/dL (1.7-4.1); Glucose 98 mg/dL (70-100); HEMOLYSIS < 15 (0-50); Potassium 3.7 mmol/L (3.4-5.1); Sodium 141 mmol/L (137-145)
[2020-03-22 02:35] LABS: Add Manual Diff / Slide Review NO; Basophils Absolute Auto 100 /uL (0-100); Basophils Percent Auto 1.4 % (0-2); Eosinophils Absolute Auto 1000 /uL (0-450); Eosinophils Percent Auto 13.4 % (2-4); Hematocrit 41.9 % (41-53); Hemoglobin 14.3 g/dL (13.5-17.5); Lymphocytes Absolute Auto 2100 /uL (1100-4500); Lymphocytes Percent Auto 28.3 % (25-40); Mean Corpuscular HGB Conc 34.2 % (30-36); Mean Corpuscular Volume 90.6 fL (80-100); Monocytes Absolute Auto 600 /uL (0-900); Monocytes Percent Auto 7.7 % (3-14); Neutrophils Absolute Auto 3700 /uL (1500-7000); Neutrophils Percent Auto 49.2 % (50-75); Platelet Count 224 X10^3/uL (150-400); Red Blood Cell Count 4.62 X10^6/uL (4.5-5.9); Red Cell Distribution Width 13.3 % (11.6-14.8); White Blood Cell Count 7.6 X10^3/uL (4.5-11.0)
[2020-03-22 02:45] LABS: NT-proBNP (BNP-Adult 18+) 26 pg/mL (<125); Troponin I < 0.012 ng/mL (0.01-0.034)
[2020-03-22 02:50] LABS: Procalcitonin < 0.05 ng/mL (<0.5)
[2020-03-22 02:50] LABS: Ur Creatinine 20 (Normal)
[2020-03-22 02:51] LABS: UR Morphine/Opiate cutoff 300 Positive (Negative); Ur Specific Gravity 1.025 (Normal); Urine Amphetamines Negative (Negative); Urine Barbiturates Negative (Negative); Urine Benzodiazepines Negative (Negative); Urine Cocaine Negative (Negative); Urine MDMA Negative (Negative); Urine Methadone Negative (Negative); Urine Methamphetamines Positive (Negative); Urine Oxycodone Negative (Negative); Urine Phencyclidine Negative (Negative); Urine Tetrahydrocannabinol Negative (Negative); Urine Tricyclic Antidepressant Negative (Negative); Urine pH 7 (Normal)
[2020-03-22] MEDS: methylPREDNISolone 125 MG/2 ML VIAL IV (03:31)
[2020-03-22] MEDS: BENZONATATE 100 MG CAPSULE PO (03:38)
[2020-03-23 18:44] LABS: COVID19 Sendout Not Detected (Not Detect)
== END 2020-03-22 03:36 | disposition home or self-care (01) ==
PROVIDERS: Emergency Provider Emergency Medicine; PCP Physician Assistant
DX: B34.9 Viral infection, unspecified (principal); J45.901 Unspecified asthma with (acute) exacerbation; I10 Essential (primary) hypertension; R51 Headache; R05 Cough
CPT/HCPCS: 36415; 71045; 80053; 80305; 81003; 83605; 83880; 84145; 84484; 85025; 87040; 87635; 93005; 94640; 96365; 96375; 99284; 99285; A9270; J0696; J1885; J2930

== ENCOUNTER 2020-04-10 19:05 | Emergency (ER) | payer OTHER, MEDICAID, SELFPAY ==
[2020-04-10 19:18] VITALS: BP 130/84; PULSE 107; RESP 15; TEMP 36.8; O2SAT 95; BMI 29.5
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
[2020-04-10] MEDS: IBUPROFEN 400 MG TABLET PO (19:57)
[2020-04-10] MEDS: ACETAMINOPHEN 325 MG TABLET 650 MG PO (19:58)
[2020-04-10] MEDS: LIDO 1%/SOD BICARB 8.4% (10ML) 10 ML SYRINGE INJ (19:58)
[2020-04-10] MEDS: BACITRACIN OINT 0.9 GM PCKT 1 APPLIC TOP (21:31)
[2020-04-10 21:59] VITALS: BP 142/93; PULSE 86; RESP 16; O2SAT 96
== END 2020-04-10 21:59 | disposition home or self-care (01) ==
PROVIDERS: Emergency Provider Nurse Practitioner Family; PCP Family Medicine; Referring Provider Family Medicine
DX: S01.511A Laceration without foreign body of lip, initial encounter (principal); S16.1XXA Strain of muscle, fascia and tendon at neck level, initial encounter; Y04.2XXA Assault by strike against or bumped into by another person, initial encounter
CPT/HCPCS: 12011; 70486; 99284

== ENCOUNTER → 2020-05-08 13:31 | Outpatient (CLI) | payer OTHER, MEDICAID, SELFPAY ==
[2020-05-08 14:44] LABS: Albumin 4.2 g/dL (3.5-5.0); BUN Creatinine Ratio 19.4 (6-22); Blood Urea Nitrogen 13 mg/dL (9-20); Calcium 9.2 mg/dL (8.4-10.2); Carbon Dioxide 29 mmol/L (22-32); Chloride 105 mmol/L (98-107); Estimated Glomerular Filt Rate > 60.0 mL/min (>60); Glucose 116 mg/dL (70-100); HEMOLYSIS < 15 (0-50); Phosphorous 4.1 mg/dL (2.5-4.5); Potassium 3.5 mmol/L (3.4-5.1); Sodium 143 mmol/L (137-145)
[2020-05-08 15:14] LABS: Testosterone 129 ng/dL (71.8-623)
[2020-05-08 16:52] LABS: Vitamin D 25 Hydroxy (D3) 32.3 ng/mL (30.0-100.0)
[2020-05-09 09:31] LABS: Parathyroid Hormone Int 52 pg/mL (15-65)
== END ==
PROVIDERS: PCP Family Medicine; Referring Provider Internal Medicine Endocrinology, Diabetes & Metabolism; Visit Provider Internal Medicine Endocrinology, Diabetes & Metabolism
DX: M81.0 Age-related osteoporosis without current pathological fracture (principal); E29.1 Testicular hypofunction; Z82.62 Family history of osteoporosis
CPT/HCPCS: 36415; 77080; 80069; 82306; 83970; 84403

== ENCOUNTER 2020-05-15 11:50 | Emergency (ER) | payer OTHER, MEDICAID, SELFPAY ==
[2020-05-15 11:56] VITALS: BP 161/104; PULSE 86; RESP 16; TEMP 37.1; O2SAT 98; BMI 29.3
[2020-05-15] MEDS: ALBUTEROL HFA 200 PUFF/18 GM INH (COVID POS/VENT PTS) INH (12:11)
[2020-05-15 12:25] VITALS: PULSE 95; RESP 20; O2SAT 95
--- NOTE | 2020-05-15 12:58 | ED.SOB ---
HPI - SOB/Dyspnea <[facility] PATIENT OBSERVATION ASSISTANT - Last Filed: 05/15/20 13:48> General Chief Complaint: Shortness of Breath/Dyspnea Stated Complaint: coughing, struggling to breath Time Seen by Provider: 05/15/20 12:15 Source: patient Mode of arrival: Ambulatory Limitations: no limitations History of Present Illness HPI Narrative: This is a 49 year male, nonsmoker, who has history of childhood asthma, hypertension, nasal polyps presents to ED with chief complain of frequent productive yellow mucousy cough and short of breath. Patient reports his inhaler not get refilled by his primary care physician Dr. Jackson but had not called the clinic and came into ED. patient reports frequent coughing had started 2-3 months ago. He denies fever but became sweaty with the coughing spells. He denies fever, chills, nausea, vomiting, diarrhea, sore throat, or chest pain. Patient denies known exposure to COVID-19. Reports had negative cope with test done and of February. He is currently taking steroid inhaler twice a day and takes allergy pill as needed. Related Data Home Medications Medication Instructions Recorded Confirmed testosterone 6 pump TRANSDERMAL QAM gram 04/26/19 09/29/19 Previous Rx's Medication Instructions Recorded amlodipine 10 mg PO DAILY #30 tab 04/12/19 loratadine 10 mg tablet 10 mg PO DAILY PRN #90 tab 06/08/19 ibuprofen 600 mg PO Q6H PRN #30 tab 12/15/19 amlodipine 10 mg tablet 10 mg PO DAILY #90 tab 03/08/20 dextromethorphan HBr [Tussin Cough 15 mg PO Q8H PRN #118 ml 03/22/20 (DM only)] fluticasone 250 mcg-salmeterol 50 1 inhalation INHALATION BID #60 04/08/20 mcg/dose blistr powdr for each inhalation doxycycline hyclate 100 mg PO BID 7 Days #14 cap 05/15/20 prednisone 40 mg PO DAILY 5 Days tab 05/15/20 Allergies Allergy/AdvReac Type Severity Reaction Status Date / Time aspirin [ASPIRIN] Allergy Severe Swollen Verified 05/15/20 12:02 head and upper respiratory distress at age 2 Penicillins [PENICILLINS] Allergy Unknown mom was Verified 05/15/20 12:02 told I was allergic to penicillin same as aspirin. Review of Systems <CYNTHIA Morillo - Last Filed: 05/15/20 13:48> Review of Systems Narrative: General: See HPI HEENT: Denies sinus pain, ear pain, sore throat, difficulty swallowing, dizziness. Respiratory: See HPI Cardiovascular: Denies chest pain, palpitations, orthopnea, edema. Gastrointestinal: Denies nausea, vomiting, abdominal pain, diarrhea, constipation, melena. : Denies dysuria, frequency, incontinence, hematuria, urinary retention. Musculoskeletal: Denies weakness, joint pain or bony pain. Skin: Denies rash, skin lesions, or other. Neurologic: Denies weakness, headache, numbness, change in speech, confusion, seizures, incoordination. Psychiatric: No concerning psychosocial issues. 12-point review of systems is negative except for those stated above. Patient History <CYNTHIA Morillo - Last Filed: 05/15/20 13:48> Medical History Acute maxillary sinusitis (Acute) Allergic rhinitis (Chronic 1968) Anemia (Acute) Anxiety (Chronic) Arm fracture, left (Acute 1990) Asthma (Acute) Burst fracture of lumbar vertebra (Resolved 09/2015) Compression fracture of L2 (Resolved 09/2015) Depression (Chronic) Fractures (Resolved) Hearing loss (Chronic 1968) Hypertension (Chronic 2015) Hypogonadism (Chronic ~02/2016) Low back pain (Chronic) Nasal polyps (Resolved 1968) Osteoporosis (Chronic 1998) Partial blindness (Chronic 1968) Sleep apnea (Chronic Unknown) Substance abuse (Resolved 1999) Surgical History History of back surgery (Resolved 09/2015) History of spinal fusion (2015) History of surgery on arm (Resolved 1990) Hx of nasal polypectomy (Resolved ~1985) Family History Brother Age: 53 Hypertension Brother Hypertension Mother Age: 76 Hypertension Sister Age: 58 Diabetes mellitus Hypertension Sister Age: 60 Diabetes mellitus Hypertension Father Cancer Social History household members: none Smoking Status: Never smoker second hand exposure: Yes (once in a while. ) alcohol intake: current substance use type: marijuana Smoking Status: Never smoker alcohol intake frequency: holidays/special occasions only Substance Use Type: does not use Exam <Bruno CYNTHIA Masterson - Last Filed: 05/15/20 13:48> Narrative Exam Narrative: GEN: Alert, oriented x 3, well appearing and nourished, and in no acute distress. Head: Normal cephalic, atraumatic. No scalp or temporal tenderness, palpable mass or rash. EYES: Pupils are equal, round, and reactive to light and accommodation. Extraocular muscles are intact bilaterally. There is no subconjunctival hemorrhage, exudate and sclera non-icteric. ENT: Bilateral auditory canals and tympanic membranes clear. Hearing grossly intact. Nose without bleeding, purulent discharge or deviation. Large nasal polyps in left nares. Facial sinuses nontender to palpate. Mucous membrane moist, no mucosal lesion. Throat without erythema, tonsillar hypertrophy or exudate. Uvula in midline, airway patent. Neck: Trachea in midline. No JVD, non-tender without lymphadenopathy. No masses or thyroid megaly. Supple, non-tender and no meningeal signs. CARDIAC: Normal regular rate and rhythm without murmurs, gallops, or rubs. No chest wall tenderness. No peripheral edema, cyanosis or pallor. Capillary refill is less than 2 seconds. RESPIRATORY: Lungs are wheezing and rhonchi bilaterally. Frequent moist cough witnessed. No stridor, respiratory distress, increase work of breathing, or accessary muscle used. ABD: Abdomen soft, nontender and non-distended. No guarding or rebound tenderness to palpate. Bowel sounds are normal in all 4 quadrants. There is no palpable masses or organomegaly. EXT: Full painless ROM of all extremities with no loss of sensation, strength, effusion or edema. SKIN: Warm, dry, normal color for patient. No erythema, lesions or rash over visible areas. BACK: Nontender without deformity or crepitance. No flank tenderness. NEUROLOGICAL: Alert and oriented to place, time and person. Sensation and motor function intact bilaterally. No facial droops, dysphasia. PSYCHIATRIC: Good judgement and reason, without hallucinations, abnormal affect or abnormal behaviors during the examination. Patient is not suicidal. Initial Vital Signs Initial Vital Signs: Vital Signs Temperature 98.8 F 05/15/20 11:56 Pulse Rate 86 05/15/20 11:56 Respiratory Rate 16 05/15/20 11:56 Blood Pressure 161/104 H 05/15/20 11:56 Pulse Oximetry 98 05/15/20 11:56 <Michelle Velazquez MD - Last Filed: 05/15/20 17:52> Initial Vital Signs Initial Vital Signs: Vital Signs Temperature 98.8 F 05/15/20 11:56 Pulse Rate 86 05/15/20 11:56 Respiratory Rate 16 05/15/20 11:56 Blood Pressure 161/104 H 05/15/20 11:56 Pulse Oximetry 98 05/15/20 11:56 Scores <CYNTHIA Morillo - Last Filed: 05/15/20 13:48> GCS Humphrey coma scale eye opening: Spontaneous Thai coma scale verbal response: Orientated Humphrey coma scale motor response: Obey commands Thai coma scale total score: 15 Course <CYNTHIA Morillo - Last Filed: 05/15/20 13:48> Orders Ordered: ED Orders 05/15/20 12:06 RT Consult Eval and Treat NOW 05/15/20 12:57 XR chest 2V Stat 05/15/20 13:10 COVID19 -ED/INPAT/OR/L&D Stat Discontinued Medications Albuterol (Ventolin Hfa (Vent/Covid R/O)) 2 puff INH NOW ONE Stop: 05/15/20 12:06 Last Admin: 05/15/20 12:11 Dose: 2 puff Documented by: SAIRA Vital Signs Vital signs: Vital Signs - 8 hr 05/15/20 11:56 05/15/20 12:25 05/15/20 13:55 Temperature 98.8 F Pulse Rate 86 95 H 84 Respiratory Rate 16 20 Blood Pressure 161/104 H 151/91 H Pulse Oximetry 98 95 95 <Michelle Velazquez MD - Last Filed: 05/15/20 17:52> Orders Ordered: ED Orders 05/15/20 12:06 RT Consult Eval and Treat NOW 05/15/20 12:57 XR chest 2V Stat 05/15/20 13:10 COVID19 -ED/INPAT/OR/L&D Stat Discontinued Medications Albuterol (Ventolin Hfa (Vent/Covid R/O)) 2 puff INH NOW ONE Stop: 05/15/20 12:06 Last Admin: 05/15/20 12:11 Dose: 2 puff Documented by: SAIRA Vital Signs Vital signs: Vital Signs - 8 hr 05/15/20 11:56 05/15/20 12:25 05/15/20 13:55 Temperature 98.8 F Pulse Rate 86 95 H 84 Respiratory Rate 16 20 Blood Pressure 161/104 H 151/91 H Pulse Oximetry 98 95 95 MDM - SOB/Dyspnea <CYNTHIA Morillo - Last Filed: 05/15/20 13:48> Differential Diagnosis Differential diagnosis: Likely community acquired pneumonia, asthma with exacerbation and other (Covid 19) Medical Records Attestation: I reviewed the patient's medical records. Lab Data Attestation: I reviewed the patient's lab results. Labs: Lab Results 05/15/20 Range/Units 13:10 COVID-19 PCR Negative (Negative) Imaging Data Chest x-ray: Radiologist's Impression: [address] [address] XRay Report Signed Patient: Tom Escalona JMR#: [id number] : 1970Acct:[id number] Age/Sex: 49 / MDate of Service: 05/15/20 Loc: ED Accession Number: [id number] Procedure: XR chest 2V Ordering Provider: Bruno Masterson PROCEDURE: XR CHEST 2V INDICATIONS: productive cough, wheezing, rhonchi TECHNIQUE: 2 views of the chest were acquired. COMPARISON: [facility], , XR CHEST 1V, 03/22/2020, 2:21. FINDINGS: Surgical changes and devices: None. Lungs and pleura: Ill-defined airspace opacity in right upper and lower lung juarez are seen suggestive of right-sided pulmonary infiltrates. Chronic emphysematous changes are seen. No pleural effusions or pneumothorax. Mediastinum: Mediastinal contours are normal. Heart size is normal. Bones and chest wall: No suspicious bony abnormalities. Soft tissues appear unremarkable. IMPRESSION: Finding is suggestive of patchy right upper and lower lobe infiltrates. COPD. Dictated by: Yasmani Alvarez M.D. on 05/15/2020 at 13:11 Approved by: Yasmani Alvarez M.D. on 05/15/2020 at 13:15 [facility] Narrative Medical decision making narrative: This is a 49-year-old male who presents to ED with short of breath and productive cough and in request of albuterol inhaler refill. Patient reports cough has been lasting last 2-3 months but became worse without using inhaler. Physical exam appreciated rhonchi and wheezing in all lobes worse on right lobes with frequent moist cough. Inhaler and MDI have been provided by RT. Patient reports feeling improved. Covid test was obtained with negative results. Chest x-ray shows ill-defined airspace opacity in right upper and lower lung juarez suggested of pneumonia and COPD. Starting patient on doxycycline b.i.d. for 7 day course and prednisone 40 mg daily for next 5 days with precautions. O2 sat greater than 95% in room air without increased work of breathing. Patient was able to ambulate without increase short of breath. Return precautions were discussed with patient and patient verbalized understanding and agreement with the treatment plan. <Michelle Velazquez MD - Last Filed: 05/15/20 17:52> Lab Data Labs: Lab Results 05/15/20 Range/Units 13:10 COVID-19 PCR Negative (Negative) Discharge Plan Departure Patient Disposition: Home Clinical Impression: Community acquired pneumonia Qualifiers: Laterality: right Lung location: unspecified part of lung Qualified Code(s): J18.9 - Pneumonia, unspecified organism COPD (chronic obstructive pulmonary disease) Qualifiers: COPD type: unspecified COPD Qualified Code(s): J44.9 - Chronic obstructive pulmonary disease, unspecified Discharge Date/Time: 05/15/20 13:56 Instructions: DI for Chronic Obstructive Pulmonary Disease, DI for Pneumonia -- Adult Activity Restrictions/Additional Instructions: You have been diagnosed with [right upper and middle lobe infiltrate indicating pneumonia, and COPD per x-ray test. Covid test was negative. You were provided with inhaler albuterol for short of breath and frequent coughing.]. What to do: *Take your medications as directed. Antibiotic medication doxycycline for pneumonia. Please take twice a day for next 7 days. Also take prednisone 40 mg a day for next 5 days. It can elevate your blood sugar, mood change, or insomnia when you are on prednisone. You can take [id number] Tylenol and Motrin as needed for discomfort. Continue to use steroid inhaler and rescue inhaler that you have for short of breath or frequent coughing. Please increase oral hydration and rest. Antibiotic medication has been transmitted to [facility]. *Follow up with your primary care provider in 2-3 days, call for an appointment. Let them know you were seen in the ED and that we asked you to be seen in follow up. *Return to ED if you have any new, worsening, or concerning symptoms, such as [chest pain, breathing difficulty, unable to tolerate fluids, high fever, or any acute concerns]. Prescriptions: New doxycycline hyclate 100 mg capsule 100 mg PO BID 7 Days Qty: 14 RF: 0 prednisone 20 mg tablet 40 mg PO DAILY 5 Days RF: 0 No Action loratadine [Claritin] 10 mg tablet 10 mg PO DAILY PRN (Reason: allergy symptoms) Qty: 90 RF: 1 amlodipine 10 mg tablet 10 mg PO DAILY Qty: 90 RF: 0 testosterone 10 mg/0.5 gram /actuation gel in metered-dose pump 6 pump transdermal QAM RF: 0 fluticasone propion-salmeterol [Advair Diskus] 250-50 mcg/dose blister with device 1 inhalation INHALATION BID Qty: 60 RF: 2 amlodipine 10 mg tablet 10 mg PO DAILY Qty: 30 RF: 0 ibuprofen 600 mg tablet 600 mg PO Q6H PRN (Reason: pain) Qty: 30 RF: 0 Tussin Cough (DM only) 15 mg/5 mL liquid 15 mg PO Q8H PRN (Reason: cough) Qty: 118 RF: 0 Referrals: Rosas Jackson, DO [Primary Care Provider] - Stand Alone Forms: Work Release Note <Michelle Velazquez MD - Last Filed: 05/15/20 17:52> Cosign ED Attending Cosmakennaature Attestation: I was immediately available in the department for consultation throughout this patient's visit. I agree with documentation as above. Michelle Velazquez MD
[2020-05-15 13:27] LABS: COVID19 -Nasal RAPID Negative (Negative)
[2020-05-15 13:55] VITALS: BP 151/91; PULSE 84; O2SAT 95
== END 2020-05-15 13:56 | disposition home or self-care (01) ==
PROVIDERS: Emergency Provider Nurse Practitioner Family; PCP Family Medicine
DX: J18.9 Pneumonia, unspecified organism (principal); J44.9 Chronic obstructive pulmonary disease, unspecified; R06.02 Shortness of breath
CPT/HCPCS: 71046; 87635; 94640; 99282; 99283; A9270

== ENCOUNTER → 2020-05-27 12:10 | Outpatient (CLI) | payer OTHER, MEDICAID, SELFPAY ==
--- NOTE | 2020-05-27 12:20 | DI.CT.S_ITS ---
PROCEDURE: CT CHEST W CON INDICATIONS: ED follow up for COPD TECHNIQUE: After the administration of intravenous contrast, 5 mm thick sections acquired from the pulmonary apices to the posterior costophrenic angles. 1 mm axial lung, 5 mm thick coronal and sagittal reformats and 7 mm axial MIP were acquired. For radiation dose reduction, the following was used: automated exposure control, adjustment of mA and/or kV according to patient size. COMPARISON: [facility], CR, XR CHEST 2V, 05/15/2020, 12:48. FINDINGS: Image quality: Excellent. Lungs and pleura: Ill-defined subtle patchy ground-glass opacities are seen scattered in posterior aspect of bilateral upper and lower lobes most prominent in right upper lobe. No pleural effusions or pneumothorax. Central and peripheral airways are patent and normal in caliber. Mediastinum: Heart size is enlarged. No pericardial effusion. No mediastinal or hilar adenopathy by size criteria. Subcentimeter lymph nodes are seen in mediastinum measures up to 8 millimeters in short axis diameter in right paratracheal space. Thoracic aorta and central pulmonary arteries are normal in size. Esophagus is normal in caliber. There is a small hiatal hernia. Bones and chest wall: No suspicious bony lesions. Chronic appearing mild anterior wedge compression deformity at T12 level is noted. Degenerative disc disease throughout thoracic spine is seen. No acute vertebral body compression fractures. Post fusion changes in visualized upper lumbar spine is seen. No axillary or supraclavicular adenopathy by size criteria. Thyroid gland is within normal limits. Abdomen: Visualized upper abdominal solid organs appear normal. Upper abdominal bowel loops are normal in caliber. IMPRESSION: 1. Subtle patchy ground-glass opacities scattered in bilateral lung juarez more prominent in right upper lobe suggestive of patchy area of pneumonitis versus atypical pneumonia. No pleural effusion or pneumothorax. Airway is patent. 2. No mediastinal or hilar lymphadenopathy by size criteria. 3. Cardiomegaly, no pericardial effusion. Small hiatal hernia. Dictated by: Yasmani Alvarez M.D. on 05/27/2020 at 15:21 Approved by: Yasmani Alvarez M.D. on 05/27/2020 at 15:25
== END ==
PROVIDERS: PCP Family Medicine; Referring Provider Family Medicine; Visit Provider Family Medicine
DX: J44.9 Chronic obstructive pulmonary disease, unspecified (principal); R93.89 Abnormal findings on diagnostic imaging of other specified body structures; I51.7 Cardiomegaly; K44.9 Diaphragmatic hernia without obstruction or gangrene
CPT/HCPCS: 71260; Q9967

== ENCOUNTER → 2020-05-30 09:45 | Outpatient (CLI) | payer OTHER, MEDICAID, SELFPAY ==
[2020-05-31 07:48] LABS: COVID19 Sendout Not Detected (Not Detect)
== END ==
PROVIDERS: PCP Family Medicine; Visit Provider Physician Assistant
DX: Z11.59 Encounter for screening for other viral diseases (principal)
CPT/HCPCS: 87635

== ENCOUNTER 2020-06-27 10:52 | Emergency (ER) | payer OTHER, MEDICAID, SELFPAY ==
[2020-06-27 10:56] VITALS: BP 126/80; PULSE 86; RESP 15; TEMP 36.7; O2SAT 96; BMI 29.5
--- NOTE | 2020-06-27 12:22 | DI.RAD.S_ITS ---
PROCEDURE: XR CHEST 2V INDICATIONS: cough,recent dx of pneumonia TECHNIQUE: 2 views of the chest were acquired. COMPARISON: [facility], CT, CT CHEST W CON, 05/27/2020, 12:15. [facility], CR, XR CHEST 2V, 05/15/2020, 12:48. FINDINGS: Surgical changes and devices: Lumbar orthopedic fusion.. Lungs and pleura: Mild diffuse interstitial prominence.. No pleural effusions or pneumothorax. Mediastinum: Mediastinal contours are normal. Cardiomegaly, as before. Bones and chest wall: No suspicious bony abnormalities. Soft tissues appear unremarkable. IMPRESSION: Unchanged cardiomegaly, mild diffuse interstitial prominence. No acute infiltrates. Dictated by: Terrence Davis M.D. on 06/27/2020 at 12:58 Approved by: Terrence Davis M.D. on 06/27/2020 at 13:00
[2020-06-27] MEDS: ALBUTEROL HFA 200 PUFF/18 GM INH (COVID POS/VENT PTS) INH (13:45)
[2020-06-27 14:01] VITALS: O2SAT 97
[2020-06-27 14:08] LABS: Add Manual Diff / Slide Review NO; Basophils Absolute Auto 0 /uL (0-100); Basophils Percent Auto 0.2 % (0-2); Eosinophils Absolute Auto 300 /uL (0-450); Eosinophils Percent Auto 2.7 % (2-4); Hematocrit 41.2 % (41-53); Hemoglobin 13.8 g/dL (13.5-17.5); Lymphocytes Absolute Auto 1900 /uL (1100-4500); Lymphocytes Percent Auto 17.5 % (25-40); Mean Corpuscular HGB Conc 33.5 % (30-36); Mean Corpuscular Hemoglobin 30.2 PG (26-34); Mean Corpuscular Volume 90.1 fL (80-100); Monocytes Absolute Auto 1000 /uL (0-900); Monocytes Percent Auto 9.4 % (3-14); Neutrophils Absolute Auto 7700 /uL (1500-7000); Neutrophils Percent Auto 70.2 % (50-75); Platelet Count 196 X10^3/uL (150-400); Red Blood Cell Count 4.57 X10^6/uL (4.5-5.9); Red Cell Distribution Width 12.9 % (11.6-14.8)
[2020-06-27 14:27] LABS: Alanine Aminotransferase 17 IU/L (<50); Albumin 4.1 g/dL (3.5-5.0); Albumin Globulin Ratio 1.2 (1.0-2.8); Alkaline Phosphatase 115 U/L (38-126); Aspartate Aminotransferase 20 IU/L (17-59); BUN Creatinine Ratio 36.7 (6-22); Bilirubin Total 0.8 mg/dL (0.2-1.3); Blood Urea Nitrogen 22 mg/dL (9-20); Calcium 8.7 mg/dL (8.4-10.2); Carbon Dioxide 28 mmol/L (22-32); Chloride 107 mmol/L (98-107); Estimated Glomerular Filt Rate > 60.0 mL/min (>60); Globulin 3.5 g/dL (1.7-4.1); Glucose 89 mg/dL (70-100); HEMOLYSIS < 15 (0-50); Potassium 3.8 mmol/L (3.4-5.1); Sodium 139 mmol/L (137-145); Total Protein 7.6 g/dL (6.3-8.2)
[2020-06-27 14:35] LABS: NT-proBNP (BNP-Adult 18+) 28 pg/mL (<125)
[2020-06-27 14:42] LABS: Magnesium 2.4 mg/dL (1.6-2.3)
[2020-06-27 15:02] LABS: Procalcitonin < 0.05 ng/mL (<0.5)
[2020-06-27 15:07] LABS: COVID19 -Nasal RAPID Negative (Negative)
[2020-06-27 15:35] VITALS: BP 123/75
[2020-06-27 16:29] VITALS: BP 118/75
--- NOTE | 2020-06-27 18:16 | CM.SWNOTE ---
JOB PRINTER APPRENTICE note JOB PRINTER APPRENTICE meets with patient. Patient is alert/oriented and expresses that he is uncomfortable due to coughing. Patient explains that his car was impounded recently due to an overdose in car, but was informed that his car would be returned to him in several days. Patient explains that he lives in his car and that all of his medications were in his car. Patient states he came to ED because he spent several hours outside in the cold and was worried about his coughing. Patient informs JOB PRINTER APPRENTICE that he may have a friend who he can stay with, but has not been able to contact her because his phone was out of batteries. JOB PRINTER APPRENTICE provides patient with a senior accounting associate to use while in ED to call and contact friend. Patient states he will not be able to refill his medications for another week. JOB PRINTER APPRENTICE inquires with patient's ED provider if short term refills of medications can be provided from ED. ED provider indicates that this can happen. ED provider informs JOB PRINTER APPRENTICE that patient is reiterating that he has no where to go. JOB PRINTER APPRENTICE reenters room and patient states he has not called his friend yet, but that he believes his friend will say no. JOB PRINTER APPRENTICE informs patinet that he will not be staying in ED overnight and now is the time to contact his friend. JOB PRINTER APPRENTICE and patient discuss options and patient becomes escalated. JOB PRINTER APPRENTICE reiterates plan for d/c and reviews this conversation with ED provider. Pl: patient to receive short term refills of medication from ED and will contact friend for place to stay. MELISSA Escobedo
[2020-06-27 18:30] VITALS: BP 130/86; PULSE 76; RESP 15; O2SAT 100
--- NOTE | 2020-06-27 19:17 | ED.URI ---
HPI - URI/Sore Throat <Sera Mixon, [employer] - Last Filed: 06/27/20 19:22> General Chief Complaint: Upper Respiratory Symptoms Stated Complaint: shortness of breath, cough, weak Time Seen by Provider: 06/27/20 13:24 Source: patient Mode of arrival: Wheelchair Limitations: no limitations History of Present Illness HPI Narrative: The patient is a 49-year-old male nonsmoker with history of COPD, recent bronchitis and cough who presents with a chief complaint of continued cough. He states that he was outside in the cold weather for 4 hours last night which made his cough worse. He denies any current chest pain shortness of breath fevers nausea vomiting or diarrhea. He states that he is homeless, living in his vehicle which was recently refilled vest. He states that when he lost access to his car he lost access to his medications and is requesting refills for his medications for COPD, hypertension and his steroid. He states that he has not been taking his steroid and he is wondering why that cough is worse. He states that he recently finished antibiotics. Related Data Home Medications Medication Instructions Recorded Confirmed testosterone 6 pump TRANSDERMAL QAM gram 04/26/19 06/18/20 Previous Rx's Medication Instructions Recorded loratadine 10 mg tablet 10 mg PO DAILY PRN #90 tab 06/08/19 ibuprofen 600 mg PO Q6H PRN #30 tab 12/15/19 fluticasone 250 mcg-salmeterol 50 1 inhalation INHALATION BID #60 04/08/20 mcg/dose blistr powdr for each inhalation amlodipine 10 mg tablet 10 mg PO DAILY #30 tab 05/20/20 albuterol sulfate 90 mcg/actuation 2 puff INHALATION QID PRN #18 gram 06/18/20 aerosol inhaler clarithromycin 500 mg tablet 500 mg PO BID #14 tab 06/18/20 prednisone 20 mg tablet 40 mg PO DAILY #10 tab 06/18/20 amlodipine 10 mg PO DAILY #14 tab 06/27/20 benzonatate [Tessalon Perles] 100 mg PO BID-TID PRN #20 cap 06/27/20 fluticasone propion-salmeterol 1 inhalation INHALATION BID #14 06/27/20 each prednisone 40 mg PO DAILY #10 tab 06/27/20 Allergies Allergy/AdvReac Type Severity Reaction Status Date / Time aspirin [ASPIRIN] Allergy Severe Swollen Verified 06/27/20 10:56 head and upper respiratory distress at age 2 Penicillins [PENICILLINS] Allergy Unknown mom was Verified 06/27/20 10:56 told I was allergic to penicillin same as aspirin. Review of Systems <ALY Swift - Last Filed: 06/27/20 19:22> Review of Systems Narrative: GENERAL: Denies chills, fatigue, malaise, fever, sweats. HEENT: Denies sinus pain, ear pain, sore throat, difficulty swallowing, dizziness. RESPIRATORY: See HPI CARDIOVASCULAR: Denies chest pain, palpitations, orthopnea, edema, GASTROINTESTINAL: Denies nausea, vomiting, abdominal pain, diarrhea, constipation, melena. : Denies dysuria, frequency, incontinence, hematuria, urinary retention. MUSCULOSKELETAL: denies weakness, joint pain, or bony pain SKIN: Denies rash, skin lesions, or other NEUROLOGIC: Denies weakness, headache, numbness, change in speech, confusion, seizures, incoordination. PSYCHIATRIC: No concerning psychosocial issues. 12 point review of systems is negative except for those stated above Patient History <ALY Swift - Last Filed: 06/27/20 19:22> Medical History Acute bronchitis (Acute) Acute maxillary sinusitis (Acute) Allergic rhinitis (Chronic 1968) Anemia (Acute) Anxiety (Chronic) Arm fracture, left (Acute 1990) Asthma (Acute) Burst fracture of lumbar vertebra (Resolved 09/2015) Compression fracture of L2 (Resolved 09/2015) Depression (Chronic) Fractures (Resolved) Hearing loss (Chronic 1968) Hypertension (Chronic 2015) Hypogonadism (Chronic ~02/2016) Low back pain (Chronic) Nasal polyps (Resolved 1968) Osteoporosis (Chronic 1998) Partial blindness (Chronic 1968) Sleep apnea (Chronic Unknown) Substance abuse (Resolved 1999) Surgical History History of back surgery (Resolved 09/2015) History of spinal fusion (2015) History of surgery on arm (Resolved 1990) Hx of nasal polypectomy (Resolved ~1985) Family History Brother Age: 53 Hypertension Brother Hypertension Mother Age: 76 Hypertension Sister Age: 58 Diabetes mellitus Hypertension Sister Age: 60 Diabetes mellitus Hypertension Father Cancer Social History household members: none Smoking Status: Never smoker second hand exposure: Yes (once in a while. ) alcohol intake: current substance use type: marijuana Smoking Status: Never smoker alcohol intake frequency: holidays/special occasions only Substance Use Type: does not use and methamphetamine Exam <ALY Swift - Last Filed: 06/27/20 19:22> Narrative Exam Narrative: GENERAL: This is a well-nourished, well-developed patient, in no acute distress. Patient was be woken up for exam. HEAD: Atraumatic. Normocephalic. No temporal or scalp tenderness. EYES: Pupils equal round and reactive. Extraocular motions intact. No scleral icterus. No injection or drainage. ENT: Nose without bleeding, purulent drainage or septal hematoma. Throat without erythema, tonsillar hypertrophy or exudate. Uvula midline. Airway patent. NECK: Trachea midline. No JVD or lymphadenopathy. Supple, nontender, no meningeal signs. CARDIOVASCULAR: Regular rate and rhythm RESPIRATORY: Clear to auscultation. Dry cough throughout exam. Breath sounds equal bilaterally. No wheezes, rales, or rhonchi. Speaking full sentences. GASTROINTESTINAL: Abdomen soft, non-tender, nondistended. No hepato-splenomegaly, or palpable masses. No guarding. Active bowel sounds all 4 quadrants. EXTREMITIES: No clubbing, cyanosis, or edema. No joint tenderness, effusion, or edema noted. BACK: Nontender without deformity or crepitance. No flank tenderness. NEURO: AOx3. SKIN: No rash or erythema on visible skin. Initial Vital Signs Initial Vital Signs: Vital Signs Temperature 98.0 F 06/27/20 10:56 Pulse Rate 86 06/27/20 10:56 Respiratory Rate 15 06/27/20 10:56 Blood Pressure 126/80 06/27/20 10:56 Pulse Oximetry 96 06/27/20 10:56 <Robbie Smiley MD - Last Filed: 06/30/20 18:55> Initial Vital Signs Initial Vital Signs: Vital Signs Temperature 98.0 F 06/27/20 10:56 Pulse Rate 86 06/27/20 10:56 Respiratory Rate 15 06/27/20 10:56 Blood Pressure 126/80 06/27/20 10:56 Pulse Oximetry 96 06/27/20 10:56 Scores <ALY Swift - Last Filed: 06/27/20 19:22> GCS [place] coma scale eye opening: Spontaneous [place] coma scale verbal response: Orientated [place] coma scale motor response: Obey commands [place] coma scale total score: 15 Course <ALY Swift - Last Filed: 06/27/20 19:22> Orders Ordered: Discontinued Medications Albuterol (Ventolin Hfa (Vent/Covid R/O)) 2 puff INH NOW ONE Stop: 06/27/20 13:40 Last Admin: 06/27/20 13:45 Dose: 2 puff Documented by: RIANA Vital Signs Vital signs: Vital Signs - 8 hr 06/27/20 14:01 06/27/20 15:35 06/27/20 16:29 Pulse Rate Respiratory Rate Blood Pressure 123/75 118/75 Pulse Oximetry 97 06/27/20 18:30 Pulse Rate 76 Respiratory Rate 15 Blood Pressure 130/86 Pulse Oximetry 100 <Robbie Smiley MD - Last Filed: 06/30/20 18:55> Orders Ordered: Discontinued Medications Albuterol (Ventolin Hfa (Vent/Covid R/O)) 2 puff INH NOW ONE Stop: 06/27/20 13:40 Last Admin: 06/27/20 13:45 Dose: 2 puff Documented by: RIANA Vital Signs Vital signs: Vital Signs - 8 hr 06/27/20 14:01 06/27/20 15:35 06/27/20 16:29 Pulse Rate Respiratory Rate Blood Pressure 123/75 118/75 Pulse Oximetry 97 06/27/20 18:30 Pulse Rate 76 Respiratory Rate 15 Blood Pressure 130/86 Pulse Oximetry 100 MDM - URI/Sore Throat <ALY Swift - Last Filed: 06/27/20 19:22> Lab Data Attestation: I reviewed the patient's lab results. Result diagrams: 06/27/20 13:59 06/27/20 13:59 Labs: Lab Results 06/27/20 06/27/20 06/27/20 Range/Units 13:59 13:59 13:59 WBC 11.0 (4.5-11.0) X10^3/uL RBC 4.57 (4.5-5.9) X10^6/uL Hgb 13.8 (13.5-17.5) g/dL Hct 41.2 (41-53) % MCV 90.1 (80-100) fL MCH 30.2 (26-34) PG MCHC 33.5 (30-36) % RDW 12.9 (11.6-14.8) % Plt Count 196 (150-400) X10^3/uL Neut % (Auto) 70.2 (50-75) % Lymph % (Auto) 17.5 L (25-40) % [place] % (Auto) 9.4 (3-14) % Eos % (Auto) 2.7 (2-4) % Baso % (Auto) 0.2 (0-2) % Neut # (Auto) 7700 H (7428-6040) /uL Lymph # (Auto) 1900 (8052-2904) /uL [place] # (Auto) 1000 H (0-900) /uL Eos # (Auto) 300 (0-450) /uL Baso # (Auto) 0 (0-100) /uL Sodium 139 (137-145) mmol/L Potassium 3.8 (3.4-5.1) mmol/L Chloride 107 (98-107) mmol/L Carbon Dioxide 28 (22-32) mmol/L BUN 22 H (9-20) mg/dL Creatinine 0.60 L (0.66-1.25) mg/dL Estimated GFR > 60.0 (>60) mL/min BUN/Creatinine Ratio 36.7 H (6-22) Glucose 89 (70-100) mg/dL Calcium 8.7 (8.4-10.2) mg/dL Magnesium (1.6-2.3) mg/dL Total Bilirubin 0.8 (0.2-1.3) mg/dL AST 20 (17-59) IU/L ALT 17 (<50) IU/L Alkaline Phosphatase 115 (38-126) U/L NT-Pro-B Natriuret Pep 28 (<125) pg/mL Total Protein 7.6 (6.3-8.2) g/dL Albumin 4.1 (3.5-5.0) g/dL Globulin 3.5 (1.7-4.1) g/dL Albumin/Globulin Ratio 1.2 (1.0-2.8) Procalcitonin < 0.05 (<0.5) ng/mL COVID-19 PCR (Negative) 06/27/20 06/27/20 Range/Units 13:59 13:59 WBC (4.5-11.0) X10^3/uL RBC (4.5-5.9) X10^6/uL Hgb (13.5-17.5) g/dL Hct (41-53) % MCV (80-100) fL MCH (26-34) PG MCHC (30-36) % RDW (11.6-14.8) % Plt Count (150-400) X10^3/uL Neut % (Auto) (50-75) % Lymph % (Auto) (25-40) % [place] % (Auto) (3-14) % Eos % (Auto) (2-4) % Baso % (Auto) (0-2) % Neut # (Auto) (4072-8833) /uL Lymph # (Auto) (6969-7427) /uL [place] # (Auto) (0-900) /uL Eos # (Auto) (0-450) /uL Baso # (Auto) (0-100) /uL Sodium (137-145) mmol/L Potassium (3.4-5.1) mmol/L Chloride (98-107) mmol/L Carbon Dioxide (22-32) mmol/L BUN (9-20) mg/dL Creatinine (0.66-1.25) mg/dL Estimated GFR (>60) mL/min BUN/Creatinine Ratio (6-22) Glucose (70-100) mg/dL Calcium (8.4-10.2) mg/dL Magnesium 2.4 H (1.6-2.3) mg/dL Total Bilirubin (0.2-1.3) mg/dL AST (17-59) IU/L ALT (<50) IU/L Alkaline Phosphatase (38-126) U/L NT-Pro-B Natriuret Pep (<125) pg/mL Total Protein (6.3-8.2) g/dL Albumin (3.5-5.0) g/dL Globulin (1.7-4.1) g/dL Albumin/Globulin Ratio (1.0-2.8) Procalcitonin (<0.5) ng/mL COVID-19 PCR Negative (Negative) Imaging Data Chest x-ray: Radiologist's Impression: [address] [place] [id number] XRay Report Signed Patient: Tom Escalona JMR#: [id number] : 1970Acct:[id number] Age/Sex: 49 / MDate of Service: 06/27/20 Loc: ED Accession Number: [id number] Procedure: XR chest 2V Ordering Provider: Robbie Smiley MD PROCEDURE: XR CHEST 2V INDICATIONS: cough,recent dx of pneumonia TECHNIQUE: 2 views of the chest were acquired. COMPARISON: [facility], CT, CT CHEST W CON, 05/27/2020, 12:15. [facility], CR, XR CHEST 2V, 05/15/2020, 12:48. FINDINGS: Surgical changes and devices: Lumbar orthopedic fusion.. Lungs and pleura: Mild diffuse interstitial prominence.. No pleural effusions or pneumothorax. Mediastinum: Mediastinal contours are normal. Cardiomegaly, as before. Bones and chest wall: No suspicious bony abnormalities. Soft tissues appear unremarkable. IMPRESSION: Unchanged cardiomegaly, mild diffuse interstitial prominence. No acute infiltrates. Dictated by: Terrence Davis M.D. on 06/27/2020 at 12:58 Approved by: Terrence Davis M.D. on 06/27/2020 at 13:[address] [facility] Narrative Medical decision making narrative: The patient is a 49-year-old male who presents with a chief complaint of persistent cough. He states it is due to the cold weather and that he lost his housing last night. Thus he was seen and evaluated by our social insurance specialist, who gave her resources. I was willing to give him small prescriptions of all the medications that he lost access to. He tested negative for coronavirus. He can stay with a friend overnight, who was called to help pick him up. Chest x-ray is no acute findings, procalcitonin is less than 0.05, helping rule out any acute bacterial lung etiology. Encouraged him to follow up with primary care provider in the next few days as well as come back to the emergency department for any acute concerns. Was seen evaluated by respiratory therapist as well, who provided him another inhaler with spacer. Patient has no questions or concerns upon discharge and states understanding of return precautions as well as follow-up care. <Robbie Smiley MD - Last Filed: 06/30/20 18:55> Lab Data Labs: Lab Results 06/27/20 06/27/20 06/27/20 Range/Units 13:59 13:59 13:59 WBC 11.0 (4.5-11.0) X10^3/uL RBC 4.57 (4.5-5.9) X10^6/uL Hgb 13.8 (13.5-17.5) g/dL Hct 41.2 (41-53) % MCV 90.1 (80-100) fL MCH 30.2 (26-34) PG MCHC 33.5 (30-36) % RDW 12.9 (11.6-14.8) % Plt Count 196 (150-400) X10^3/uL Neut % (Auto) 70.2 (50-75) % Lymph % (Auto) 17.5 L (25-40) % [place] % (Auto) 9.4 (3-14) % Eos % (Auto) 2.7 (2-4) % Baso % (Auto) 0.2 (0-2) % Neut # (Auto) 7700 H (0169-9912) /uL Lymph # (Auto) 1900 (2007-4517) /uL [place] # (Auto) 1000 H (0-900) /uL Eos # (Auto) 300 (0-450) /uL Baso # (Auto) 0 (0-100) /uL Sodium 139 (137-145) mmol/L Potassium 3.8 (3.4-5.1) mmol/L Chloride 107 (98-107) mmol/L Carbon Dioxide 28 (22-32) mmol/L BUN 22 H (9-20) mg/dL Creatinine 0.60 L (0.66-1.25) mg/dL Estimated GFR > 60.0 (>60) mL/min BUN/Creatinine Ratio 36.7 H (6-22) Glucose 89 (70-100) mg/dL Calcium 8.7 (8.4-10.2) mg/dL Magnesium (1.6-2.3) mg/dL Total Bilirubin 0.8 (0.2-1.3) mg/dL AST 20 (17-59) IU/L ALT 17 (<50) IU/L Alkaline Phosphatase 115 (38-126) U/L NT-Pro-B Natriuret Pep 28 (<125) pg/mL Total Protein 7.6 (6.3-8.2) g/dL Albumin 4.1 (3.5-5.0) g/dL Globulin 3.5 (1.7-4.1) g/dL Albumin/Globulin Ratio 1.2 (1.0-2.8) Procalcitonin < 0.05 (<0.5) ng/mL COVID-19 PCR (Negative) 06/27/20 06/27/20 Range/Units 13:59 13:59 WBC (4.5-11.0) X10^3/uL RBC (4.5-5.9) X10^6/uL Hgb (13.5-17.5) g/dL Hct (41-53) % MCV (80-100) fL MCH (26-34) PG MCHC (30-36) % RDW (11.6-14.8) % Plt Count (150-400) X10^3/uL Neut % (Auto) (50-75) % Lymph % (Auto) (25-40) % [place] % (Auto) (3-14) % Eos % (Auto) (2-4) % Baso % (Auto) (0-2) % Neut # (Auto) (9704-0381) /uL Lymph # (Auto) (8342-5075) /uL [place] # (Auto) (0-900) /uL Eos # (Auto) (0-450) /uL Baso # (Auto) (0-100) /uL Sodium (137-145) mmol/L Potassium (3.4-5.1) mmol/L Chloride (98-107) mmol/L Carbon Dioxide (22-32) mmol/L BUN (9-20) mg/dL Creatinine (0.66-1.25) mg/dL Estimated GFR (>60) mL/min BUN/Creatinine Ratio (6-22) Glucose (70-100) mg/dL Calcium (8.4-10.2) mg/dL Magnesium 2.4 H (1.6-2.3) mg/dL Total Bilirubin (0.2-1.3) mg/dL AST (17-59) IU/L ALT (<50) IU/L Alkaline Phosphatase (38-126) U/L NT-Pro-B Natriuret Pep (<125) pg/mL Total Protein (6.3-8.2) g/dL Albumin (3.5-5.0) g/dL Globulin (1.7-4.1) g/dL Albumin/Globulin Ratio (1.0-2.8) Procalcitonin (<0.5) ng/mL COVID-19 PCR Negative (Negative) Discharge Plan Departure Patient Disposition: Home Clinical Impression: Cough, Medication refill Discharge Date/Time: 06/27/20 19:21 Instructions: DI for Chronic Obstructive Pulmonary Disease, DI for Cough -- Adult, COPD: When to Call for Help Activity Restrictions/Additional Instructions: Thank you for trusting us with your care today. As discussed, I sent small prescriptions of your medications to [facility]. Please follow-up with primary care provider the next few days. Your x-ray is reassuring, your coronavirus test is negative today. Please come back to the emergency department for any acute concerns today Prescriptions: New benzonatate [Tessalon Perles] 100 mg capsule 100 mg PO BID-TID PRN (Reason: cough) Qty: 20 RF: 0 prednisone 20 mg tablet 40 mg PO DAILY Qty: 10 RF: 0 amlodipine 10 mg tablet 10 mg PO DAILY Qty: 14 RF: 0 fluticasone propion-salmeterol 250-50 mcg/dose blister with device 1 inhalation INHALATION BID Qty: 14 RF: 0 No Action loratadine [Claritin] 10 mg tablet 10 mg PO DAILY PRN (Reason: allergy symptoms) Qty: 90 RF: 1 amlodipine 10 mg tablet 10 mg PO DAILY Qty: 30 RF: 5 testosterone 10 mg/0.5 gram /actuation gel in metered-dose pump 6 pump transdermal QAM RF: 0 fluticasone propion-salmeterol [Advair Diskus] 250-50 mcg/dose blister with device 1 inhalation INHALATION BID Qty: 60 RF: 2 clarithromycin 500 mg tablet 500 mg PO BID Qty: 14 RF: 0 prednisone 20 mg tablet 40 mg PO DAILY Qty: 10 RF: 0 albuterol sulfate [ProAir HFA] 90 mcg/actuation HFA aerosol inhaler 2 puff INHALATION QID PRN (Reason: shortness of breath or wheezing) Qty: 18 RF: 2 ibuprofen 600 mg tablet 600 mg PO Q6H PRN (Reason: pain) Qty: 30 RF: 0 Referrals: Rosas Jackson, [Primary Care Provider] - <Robbie Smiley MD - Last Filed: 06/30/20 18:55> Cosign ED Attending Cosignature Attestation: I was immediately available in the department for consultation. This documentation has been reviewed and I agree with assessment and plan. Supervised by Robbie Smiley MD
[2020-06-27 19:19] VITALS: BP 134/92; PULSE 90; RESP 16; O2SAT 95
--- NOTE | 2020-06-27 19:36 | PC.NURSE ---
patient was discharged but went to the [facility]. He called in the the ED stating that he was not able to get his prescriptions paid for. He was told that he could try over the counter medication and did not want to try that option. He said that he could not afford medication. He had a consult with social work during this visit and was also offered a prescription card for discounted medication. He refused to try that discount card also. Provider aware and no new orders were made.
== END 2020-06-27 19:21 | disposition home or self-care (01) ==
PROVIDERS: Emergency Provider Nurse Practitioner Family; PCP Family Medicine
DX: R05 Cough (principal); J44.9 Chronic obstructive pulmonary disease, unspecified; Z76.0 Encounter for issue of repeat prescription
CPT/HCPCS: 71046; 80053; 83735; 83880; 84145; 85025; 87635; 94640; 99282; 99284; A9270

== ENCOUNTER 2020-07-05 16:35 | Emergency (ER) | payer OTHER, MEDICAID, SELFPAY ==
[2020-07-05 16:55] VITALS: PULSE 88; RESP 18; TEMP 36.7; O2SAT 98; BMI 27.3
[2020-07-05 17:53] VITALS: BP 154/83; PULSE 87; RESP 16; TEMP 37.1; O2SAT 97
--- NOTE | 2020-07-05 18:13 | ED.EXTPRO ---
HPI - Extremity Problem General Chief complaint: Extremity Problem,Nontraumatic Stated complaint: LEFT LEG BUMP SPIDER BITE OR BLOOD CLOT Time Seen by Provider: 07/05/20 18:12 Source: patient Mode of arrival: Family Vehicle Limitations: no limitations History of Present Illness HPI Narrative: 49-year-old gentleman with a history of COPD, on prednisone with recent completion of 2 courses of antibiotics, history of varicose veins in the lower extremities presents with posterior calf pain upon awaking this morning. It initially started as a burning sensation in the left medial posterior aspect to now radiating down the leg beginning to migrate up into the popliteal fossa. He describes no trauma. He is not having any palpitations, chest pain. Does have a slight nonproductive cough secondary to his COPD in resolving pneumonia but no exertional dyspnea and as he clearly is improving. He has no vomiting, diarrhea, dysuria, fevers or chills. Related Data Home Medications Medication Instructions Recorded Confirmed testosterone 6 pump TRANSDERMAL QAM gram 04/26/19 06/18/20 Previous Rx's Medication Instructions Recorded loratadine 10 mg tablet 10 mg PO DAILY PRN #90 tab 06/08/19 ibuprofen 600 mg PO Q6H PRN #30 tab 12/15/19 fluticasone 250 mcg-salmeterol 50 1 inhalation INHALATION BID #60 04/08/20 mcg/dose blistr powdr for each inhalation amlodipine 10 mg tablet 10 mg PO DAILY #30 tab 05/20/20 albuterol sulfate 90 mcg/actuation 2 puff INHALATION QID PRN #18 gram 06/18/20 aerosol inhaler clarithromycin 500 mg tablet 500 mg PO BID #14 tab 06/18/20 prednisone 20 mg tablet 40 mg PO DAILY #10 tab 06/18/20 amlodipine 10 mg PO DAILY #14 tab 06/27/20 benzonatate [Tessalon Perles] 100 mg PO BID-TID PRN #20 cap 06/27/20 fluticasone propion-salmeterol 1 inhalation INHALATION BID #14 06/27/20 each prednisone 40 mg PO DAILY #10 tab 06/27/20 Allergies Allergy/AdvReac Type Severity Reaction Status Date / Time aspirin [ASPIRIN] Allergy Severe Swollen Verified 07/05/20 17:02 head and upper respiratory distress at age 2 Penicillins [PENICILLINS] Allergy Unknown mom was Verified 07/05/20 17:02 told I was allergic to penicillin same as aspirin. Review of Systems Review of Systems Narrative: Remainder of review of systems including constitutional, ENT, cardiovascular, respiratory, GI, , musculoskeletal, skin, neurologic and psychiatric systems reviewed and are unremarkable except as noted in HPI. Patient History Medical History Acute bronchitis (Acute) Acute maxillary sinusitis (Acute) Allergic rhinitis (Chronic 1968) Anemia (Acute) Anxiety (Chronic) Arm fracture, left (Acute 1990) Asthma (Acute) Burst fracture of lumbar vertebra (Resolved 09/2015) Compression fracture of L2 (Resolved 09/2015) Depression (Chronic) Fractures (Resolved) Hearing loss (Chronic 1968) Hypertension (Chronic 2015) Hypogonadism (Chronic ~02/2016) Low back pain (Chronic) Nasal polyps (Resolved 1968) Osteoporosis (Chronic 1998) Partial blindness (Chronic 1968) Sleep apnea (Chronic Unknown) Substance abuse (Resolved 1999) Surgical History History of back surgery (Resolved 09/2015) History of spinal fusion (2015) History of surgery on arm (Resolved 1990) Hx of nasal polypectomy (Resolved ~1985) Family History Brother Age: 53 Hypertension Brother Hypertension Mother Age: 76 Hypertension Sister Age: 58 Diabetes mellitus Hypertension Sister Age: 60 Diabetes mellitus Hypertension Father Cancer Social History household members: none Smoking Status: Never smoker second hand exposure: Yes (once in a while. ) alcohol intake: current substance use type: marijuana Smoking Status: Never smoker alcohol intake frequency: 0-2 drinks per day Substance Use Type: does not use and methamphetamine Exam Narrative Exam Narrative: General: Alert appropriate in no acute distress Respiratory: Able to speak in full sentences, no obvious respiratory distress, minor scattered dry coughing Skin: No obvious rashes, warm and dry Neurologic: Grossly intact no obvious asymmetries or abnormalities Psych, appropriate insight and affect, cooperative Extremity: No significant lower extremity edema. Calves are symmetrical bilaterally with good distal pulses bilaterally. On the left medial aspect of the proximal calf there is a slight bit of discoloration with a palpable superficial thrombophlebitis underneath that. A bit of distension of the blood vessel above it and tenderness distal to that. There is no warmth or erythema or skin breakdown to suggest any type of infection. Initial Vital Signs Initial Vital Signs: Vital Signs Temperature 98.1 F 07/05/20 16:55 Pulse Rate 88 07/05/20 16:55 Respiratory Rate 18 07/05/20 16:55 Pulse Oximetry 98 07/05/20 16:55 Course Orders Ordered: Discontinued Medications Acetaminophen (Tylenol) 325 mg PO NOW ONE Stop: 07/05/20 18:24 Ibuprofen (Advil) 400 mg PO NOW ONE Stop: 07/05/20 18:24 Vital Signs Vital signs: Vital Signs - 8 hr 07/05/20 16:55 07/05/20 17:53 Temperature 98.1 F 98.7 F Pulse Rate 88 87 Respiratory Rate 18 16 Blood Pressure 154/83 H Pulse Oximetry 98 97 MDM - Extremity (Nontraumatic) Medical Records Attestation: I reviewed the patient's medical records. MDM Narrative Medical decision making narrative: 49-year-old gentleman woke up with a burning pain in the left calf today. Physical exam is absolutely consistent with a superficial thrombophlebitis and no evidence of deep vein involvement. No inguinal adenopathy and no redness or warmth to suggest infection. Conservative management and anticipated course of resolution reviewed in detail with him. He is safe for home discharge Discharge Plan Departure Patient Disposition: Home Clinical Impression: Superficial thrombophlebitis of left leg Instructions: DI for Superficial Thrombophlebitis Activity Restrictions/Additional Instructions: Thank you for coming in this evening. You have a fairly classic example of a superficial thrombophlebitis. This is blood clot developing in the superficial veins of your leg. With the varicosities that you have your risk for this is slightly higher. Fortunately, this is not life-threatening and will improve with time. Using 400 mg of ibuprofen (2 hlxi-iqt-enjxkpl pills) and 1 Tylenol every 6 hours can be very helpful in controlling pain. Using the Nando wrap as a compression device can be helpful in controlling the throbbing aching type pain. Please follow-up with your primary care physician if you feel that you are getting worse Prescriptions: No Action loratadine [Claritin] 10 mg tablet 10 mg PO DAILY PRN (Reason: allergy symptoms) Qty: 90 RF: 1 amlodipine 10 mg tablet 10 mg PO DAILY Qty: 30 RF: 5 testosterone 10 mg/0.5 gram /actuation gel in metered-dose pump 6 pump transdermal QAM RF: 0 fluticasone propion-salmeterol [Advair Diskus] 250-50 mcg/dose blister with device 1 inhalation INHALATION BID Qty: 60 RF: 2 clarithromycin 500 mg tablet 500 mg PO BID Qty: 14 RF: 0 prednisone 20 mg tablet 40 mg PO DAILY Qty: 10 RF: 0 albuterol sulfate [ProAir HFA] 90 mcg/actuation HFA aerosol inhaler 2 puff INHALATION QID PRN (Reason: shortness of breath or wheezing) Qty: 18 RF: 2 ibuprofen 600 mg tablet 600 mg PO Q6H PRN (Reason: pain) Qty: 30 RF: 0 benzonatate [Tessalon Perles] 100 mg capsule 100 mg PO BID-TID PRN (Reason: cough) Qty: 20 RF: 0 prednisone 20 mg tablet 40 mg PO DAILY Qty: 10 RF: 0 amlodipine 10 mg tablet 10 mg PO DAILY Qty: 14 RF: 0 fluticasone propion-salmeterol 250-50 mcg/dose blister with device 1 inhalation INHALATION BID Qty: 14 RF: 0 Referrals: Rosas Jackson, [Primary Care Provider] -
[2020-07-05] MEDS: ACETAMINOPHEN 325 MG TABLET PO (18:38)
[2020-07-05] MEDS: IBUPROFEN 400 MG TABLET PO (18:38)
== END 2020-07-05 18:42 | disposition home or self-care (01) ==
PROVIDERS: Emergency Provider Emergency Medicine; PCP Family Medicine
DX: I80.02 Phlebitis and thrombophlebitis of superficial vessels of left lower extremity (principal)
CPT/HCPCS: 99282; 99283

== ENCOUNTER → 2020-07-19 14:06 | Outpatient (CLI) | payer OTHER, MEDICAID, SELFPAY ==
--- NOTE | 2020-07-19 14:07 | DI.US.S_ITS ---
PROCEDURE: US PERIPH VENOUS LOW EXTREM LT INDICATIONS: LEFT LEG SWELLING - RULE OUT DVT AND ANTONIO CYST TECHNIQUE: Real-time imaging, as well as color and pulse Doppler interrogation, were performed of the lower extremity deep veins from the inguinal ligament to the popliteal fossa. COMPARISON: None. FINDINGS: The common femoral, femoral and popliteal veins are normally compressible, and free of intraluminal thrombus. Color and pulse Doppler demonstrate normal phasic intraluminal flow. There is normal augmentation response to distal compression maneuver. Occlusive clot seen in superficial veins within lateral left calf. IMPRESSION: 1. No evidence of deep venous thrombosis in visualized left lower extremity veins. 2. Occlusive thrombosis involving superficial veins in left calf region. Dictated by: Yasmani Alvarez M.D. on 07/19/2020 at 15:14 Approved by: Yasmani Alvarez M.D. on 07/19/2020 at 15:15
== END ==
PROVIDERS: PCP Family Medicine; Referring Provider Nurse Practitioner; Visit Provider Nurse Practitioner
DX: I82.812 Embolism and thrombosis of superficial veins of left lower extremity (principal); M79.89 Other specified soft tissue disorders
CPT/HCPCS: 93971

== ENCOUNTER → 2020-08-07 16:04 | Outpatient (CLI) | payer OTHER, MEDICAID, SELFPAY ==
[2020-08-07 16:45] LABS: COVID19 -Nasal RAPID Negative (Negative)
== END ==
PROVIDERS: PCP Family Medicine; Referring Provider Internal Medicine; Visit Provider Internal Medicine
DX: Z20.828 Contact with and (suspected) exposure to other viral communicable diseases (principal)
CPT/HCPCS: 87635; C9803

== ENCOUNTER → 2020-08-08 06:56 | Outpatient (CLI) | payer OTHER, MEDICAID, SELFPAY ==
--- NOTE | 2020-08-17 12:13 | PM.PFT.1 ---
Pulmonary Function Test Referral & Results Date Patient Seen: 08/08/20 Requesting provider: Hina Avendano Results: The spirometry demonstrates an FVC of 2.73 L which is 56% of predicted. The FEV1 was measured at 1.48 L which is 39% of predicted. The FEV1/FVC ratio was 54 which is 69% of predicted. Following the administration of bronchodilator there was a 41% improvement in FEV1, a 24% improvement in FEV1/FVC ratio, and a 132% improvement in FEF 25-75%. Lung volumes show an SVC of 2.58 L which is 54% of predicted. The diffusing capacity was measured at 21.13 which is 68% of predicted. No hemoglobin value was provided, so no correction for potential anemia could be made, if appropriate. The maximum voluntary ventilation was reduced Interpretation: This study demonstrates moderately severe obstructive lung disease based on reduction FEV1 and FEV1/FVC ratio, with evidence of significant benefit following bronchodilator as above There is also moderately severe reduction in lung volumes based on reduction SVC There is also significant reduction in diffusing capacity Altogether this is consistent with a diagnosis of COPD Clinical correlation suggested
== END ==
PROVIDERS: PCP Family Medicine; Referring Provider Family Medicine; Visit Provider Specialist
DX: J84.9 Interstitial pulmonary disease, unspecified (principal)
CPT/HCPCS: 94060; 94726; 94729

== ENCOUNTER → 2020-09-13 14:00 | Outpatient (CLI) | payer OTHER, MEDICAID, SELFPAY ==
--- NOTE | 2020-09-13 | DI.ECHO.S_ITS ---
[facility] +---------+ : : [address] : [place] : : : : [id number] : : : : Phone: [phone]---------+ Echocardiogram Report + + :Name: PARRIS DUNN Study Date: 09/13/2020 Height: 69 in : :[facility] ReadingLocation: Weight: 195 lb : : Gender: Male BSA: 2.0 m2 : :: 1970 Age: 49 yrs BP: 133/98 mmHg: :Reason For Study: Cardiomegaly, interstitial pulmonary disease : :Ordering Physician: ROSEANN, : :CHILO Performed By: Ania Guzman : :Referring: CHILO WHITFIELD : + + Interpretation Summary Normal left ventricle size with ejection fraction 60-65%. Mildly dilated left atrium. No significant valvular abnormality. Procedure: A two-dimensional transthoracic echocardiogram with color flow and Doppler was performed. The study quality was technically adequate. Images from the parasternal window were difficult to obtain and are suboptimal in quality. There is no prior echocardiogram noted for this patient. The patient was in normal sinus rhythm during the exam. Left Ventricle: The left ventricle is normal in size and wall thickness. The ejection fraction is estimated to be 60-65%. There are no obvious focal wall motion abnormalities noted but poor endocardial definition reduces the sensitivity for the detection of such. Diastolic parameters suggest probable normal left ventricular diastolic function and normal filling pressures. Right Ventricle: The right ventricle is normal in size and function. Atria: The left atrium is mildly dilated. Right atrial size is normal. There is no Doppler evidence for an interatrial shunt. Mitral Valve: The mitral valve leaflets appear mildly thickened, but open well. There is mild mitral annular calcification. There is trace mitral regurgitation. Aortic Valve: The aortic valve is trileaflet. The aortic valve opens well. No aortic regurgitation is present. Tricuspid Valve: The tricuspid valve is normal in structure and function. There is a trace or physiologic amount of tricuspid regurgitation. Pulmonary artery pressures cannot be estimated because of the lack of a measurable TR jet velocity but the IVC suggests a CVP of around 3 mmHg. Pulmonic Valve: The pulmonic valve is not well visualized. Great Vessels: The aortic root is normal size. The ascending aorta could not be visualized. The pulmonary artery is not well visualized, but is probably normal size. The IVC is of normal diameter and collapses greater than 50% with a sniff. This suggests a low right atrial pressure of 3 mm Hg. Pericardium/ Pleura There is no pericardial effusion. MMode/2D Measurements & Calculations LVIDd: 4.1 cm LVOT diam: 2.0 cm LVIDs: 3.1 cm Ao root diam: 3.5 cm FS: 24.3 % IVSd: 0.89 cm LVPWd: 0.82 cm LV john. diameter/BSA (cm/m^2): 2.0 LV sys. diameter/BSA (cm/m^2): 1.5 LA A2 area: 22.8 cm2 RA long axis: 4.7 cm LA A4 area: 21.9 cm2 RA area: 14.9 cm2 LA length (vol): 5.1 cm RA vol: 40.2 ml LA vol: 83.7 ml RA : 19.6 ml/m2 LA vol index: 41.0 ml/m2 IVC diam: 1.2 cm RVD1 (basal): 3.2 cm TAPSE: 1.7 cm Doppler Measurements & Calculations Ao V2 max: 137.2 cm/sec LVOT Max Robson: 105.3 cm/sec Ao V2 mean: 98.3 cm/sec LV V1 max P.4 mmHg Ao max P.5 mmHg LV V1 VTI: 18.4 cm Ao mean P.2 mmHg WILLY(I,D): 2.7 cm2 Ao V2 VTI: 20.7 cm WILLY(V,D): 2.3 cm2 sev ratio: 0.89 WILLY indexed to BSA (cm^2/m^2): 1.3 MV E max robson: 66.5 cm/sec PA V2 max: 80.3 cm/sec MV A max robson: 89.9 cm/sec PA V2 mean: 52.1 cm/sec MV E/A: 0.74 PA mean P.2 mmHg Med Peak E' Robson: 5.8 cm/sec PA Accel Time: 0.03 sec E/E' med: 11.5 Lat Peak E' Robson: 9.8 cm/sec E/E' lat: 6.8 E/e' average: 9.1 MV dec time: 0.18 sec [facility] 55.6 ml Electronically signed by: Shanon Guan on Reading Physician:09/13/2020 05:26 PM
--- NOTE | 2020-09-13 14:21 | DI.CT.S_ITS ---
PROCEDURE: CT CHEST HIGH RESOLUTION INDICATIONS: Interstitial pulmonary disease, unspecified TECHNIQUE: Noncontrast 1.0 and 5.0 mm thick contiguous axial sections from the pulmonary apex to the posterior costophrenic angles, with 7 mm thick coronal and sagittal MIP reformats. 1 mm thick dynamic expiratory images acquired through the upper, mid, and lower lungs. 1.0 mm thick axial sections acquired from the manpreet to the posterior costophrenic angles in the prone end-inspiration position. For radiation dose reduction, the following was used: automated exposure control, adjustment of mA and/or kV according to patient size. COMPARISON: [facility], CT, CT CHEST W CON, 05/27/2020, 12:15. FINDINGS: Image quality: Excellent. Lungs: The prior CT scanning 05/27/20 had identified several small areas of for patchy pneumonitis right upper lobe worrisome for possible early manifestation of atypical pneumonia. This pattern has resolved, and what appears to be centrilobular emphysema remains present. Through the lung parenchyma no area of alveolitis or pulmonary fibrosis is present. Bronchiectasis is not seen. There is a pattern of mild peribronchial soft tissue prominence within the lower, mid and upper lungs in a pattern consistent with mild chronic bronchitis. No underlying neoplasm is found. Pleura: No pleural effusions or pneumothorax. Mediastinum: Heart size is normal. No pericardial effusion. Thoracic aorta and central pulmonary arteries are normal in size. Esophagus is normal in caliber. Bones and chest wall: No suspicious bony lesions. No vertebral body compression fractures. Abdomen: Visualized upper abdominal solid organs and bowel loops appear normal. IMPRESSION: Resolution of right upper lobe patchy pneumonitis present in May of 2010, no suspicion for atypical/viral pneumonia at this time. Centrilobular emphysema, stable over time. No sign of alveolitis or pulmonary fibrosis. Stable mild chronic bronchitis seen within the lungs bilaterally symmetric. Dictated by: Eber Wills M.D. on 09/13/2020 at 15:41 Approved by: Eber Wills M.D. on 09/13/2020 at 15:44
== END ==
PROVIDERS: PCP Family Medicine; Referring Provider Specialist; Visit Provider Specialist
DX: J84.9 Interstitial pulmonary disease, unspecified (principal); I51.7 Cardiomegaly; F15.11 Other stimulant abuse, in remission
CPT/HCPCS: 71250; 93306

== ENCOUNTER → 2020-09-26 10:14 | Outpatient (CLI) | payer OTHER, MEDICAID, SELFPAY ==
--- NOTE | 2020-09-26 | DI.CT.S_ITS ---
PROCEDURE: CT SINUS SCREEN WO CON INDICATIONS: Chronic pansinusitis TECHNIQUE: Noncontrast 3.0 mm axial images acquired from the frontal sinuses to the mid-sella, with coronal and sagittal reformats. For radiation dose reduction, the following was used: automated exposure control, adjustment of mA and/or kV according to patient size. COMPARISON: [facility], CT, CT FACIAL BONES WO CON, 04/10/2020, 19:52. [facility], CT, SINUS SCREEN WO CONTRAST, 02/18/2016, 9:07. FINDINGS: Image quality: Excellent. Maxillary Sinuses: No bony remodeling or destruction. Moderate mucosal thickening is seen within the maxillary sinuses. The medial banda of the maxillary sinuses are demineralized. Ethmoid Air Cells: Moderate to prominent mucosal thickening is seen within the ethmoid air cells. The ethmoid air cell septations are demineralized. Sphenoid Sinuses: No bony remodeling or destruction. There is moderate mucosal thickening seen on the left and mild mucosal thickening seen on the right. Frontal Sinuses: No bony remodeling or destruction. Mild mucosal thickening is seen inferiorly and medially. Ostiomeatal Complexes: Occluded by soft tissue. The ostiomeatal complexes are demineralized. Miscellaneous: Visualized intra-orbital contents are normal. Numerous prominent nasal polyps are seen. The nasal turbinates are highly demineralized. There is [id number] leftward nasal septal deviation. Mild deformity of the left anterior nasal bones again seen. IMPRESSION: Prominent nasal polyps. Widespread paranasal sinus disease is seen, with areas of bony demineralization. The bony demineralization is consistent with chronic sinusitis. [id number] leftward nasal septal deviation. Occluded ostiomeatal complexes. These findings are minimally progressed compared to 2016. Dictated by: Devin Barragan M.D. on 09/26/2020 at 9:55 Approved by: Devin Barragan M.D. on 09/26/2020 at 9:58
== END ==
PROVIDERS: PCP Family Medicine; Referring Provider Otolaryngology; Visit Provider Otolaryngology
DX: J32.4 Chronic pansinusitis (principal); J34.2 Deviated nasal septum
CPT/HCPCS: 70486

== ENCOUNTER → 2020-11-20 12:59 | Outpatient (CLI) | payer OTHER, MEDICAID, SELFPAY ==
[2020-11-20] MEDS: COVID-19 VACC #1, MRNA(MOD) 100 MCG/0.5 ML VIAL IM (13:12)
== END ==
PROVIDERS: PCP Family Medicine; Visit Provider Internal Medicine
DX: Z23 Encounter for immunization (principal)
CPT/HCPCS: 0011A; 91301

== ENCOUNTER → 2020-11-20 15:23 | Outpatient (CLI) | payer OTHER, MEDICAID, SELFPAY ==
[2020-11-20 16:08] LABS: Hematocrit 40.2 % (41-53); Hemoglobin 13.4 g/dL (13.5-17.5)
[2020-11-20 16:28] LABS: HEMOLYSIS < 15 (0-50); Iron 38 ug/dL (49-181)
[2020-11-20 16:31] LABS: Alanine Aminotransferase 19 IU/L (<50); Albumin 4.3 g/dL (3.5-5.0); Albumin Globulin Ratio 1.3 (1.0-2.8); Alkaline Phosphatase 93 U/L (38-126); Aspartate Aminotransferase 26 IU/L (17-59); BUN Creatinine Ratio 25.3 (6-22); Bilirubin Total 0.4 mg/dL (0.2-1.3); Blood Urea Nitrogen 19 mg/dL (9-20); Calcium 9.6 mg/dL (8.4-10.2); Carbon Dioxide 25 mmol/L (22-32); Chloride 107 mmol/L (98-107); Estimated Glomerular Filt Rate > 60.0 mL/min (>60); Globulin 3.2 g/dL (1.7-4.1); Glucose 97 mg/dL (70-100); HEMOLYSIS < 15 (0-50); Potassium 3.8 mmol/L (3.4-5.1); Sodium 141 mmol/L (137-145); Total Protein 7.5 g/dL (6.3-8.2)
[2020-11-20 16:39] LABS: Percent Iron Saturation 10 % (20-50); Total Iron Binding Capacity 396 ug/dL (261-462); Transferrin 330 mg/dL (206-381)
[2020-11-20 18:08] LABS: Testosterone 167 ng/dL (71.8-623)
== END ==
PROVIDERS: PCP Family Medicine; Referring Provider Internal Medicine Endocrinology, Diabetes & Metabolism; Visit Provider Internal Medicine Endocrinology, Diabetes & Metabolism
DX: E29.1 Testicular hypofunction (principal); B34.9 Viral infection, unspecified; B97.89 Other viral agents as the cause of diseases classified elsewhere; D64.9 Anemia, unspecified; I10 Essential (primary) hypertension; J98.8 Other specified respiratory disorders
CPT/HCPCS: 36415; 80053; 83540; 83550; 84403; 85014; 85018

== ENCOUNTER → 2020-12-18 12:56 | Outpatient (CLI) | payer OTHER, MEDICAID, SELFPAY ==
[2020-12-18] MEDS: COVID-19 VACC #2, MRNA(MOD) 100 MCG/0.5 ML VIAL IM (13:04)
== END ==
PROVIDERS: PCP Family Medicine; Visit Provider Internal Medicine
DX: Z23 Encounter for immunization (principal)
CPT/HCPCS: 0012A; 91301

== ENCOUNTER 2020-12-21 11:43 | Emergency (ER) | payer OTHER, MEDICAID, SELFPAY ==
[2020-12-21 11:45] VITALS: BP 169/95; PULSE 99; RESP 14; TEMP 36.6; O2SAT 99
--- NOTE | 2020-12-21 14:44 | ED_ITS ---
HPI - Skin/Abscess/Foreign Bdy General Chief complaint: Skin/Abscess/Foreign Body Stated complaint: swollen arm from 2nd covid shot Time Seen by Provider: 12/21/20 14:12 Source: patient Limitations: no limitations History of Present Illness HPI narrative: 50M nonsmoker with history of HTN presents with some slowly worsening redness at the injection site of his 2nd COVID shot a few days ago. He denies any facial swelling, difficulty swallowing or breathing. He denies any widespread rash. He states that these swelling at the injection site started a few days after the shot and seems to be worsening, slightly swollen and painful. He has had no measurable fever, shaking chills, nausea or vomiting. Admittedly, his largest concern is that this reaction would suggest that his shot will not work. He is otherwise well and free of complaint MD complaint: discoloration Onset (ago): day(s) Tetanus up to date: yes Location: LUE Severity: mild Quality: aching Pain Consistency: constant Relieving factors: none Exacerbating factors: movement Associated symptoms: denies other symptoms Treatments prior to arrival: none Related Data Home Medications Medication Instructions Recorded Confirmed testosterone 6 pump TRANSDERMAL QAM gram 04/26/19 08/21/20 Previous Rx's Medication Instructions Recorded loratadine 10 mg tablet 10 mg PO DAILY PRN #90 tab 06/08/19 ibuprofen 600 mg PO Q6H PRN #30 tab 12/15/19 amlodipine 10 mg tablet 10 mg PO DAILY #30 tab 05/20/20 amlodipine 10 mg PO DAILY #14 tab 06/27/20 benzonatate [Tessalon Perles] 100 mg PO BID-TID PRN #20 cap 06/27/20 fluticasone propion-salmeterol 1 inhalation INHALATION BID #14 06/27/20 each fluticasone 250 mcg-salmeterol 50 1 inh INHALATION BID #60 each 07/15/20 mcg/dose blistr powdr for inhalation rivaroxaban 15 mg tablet 15 mg PO BID 90 Days #180 tab 07/22/20 albuterol sulfate 90 mcg/actuation 2 puff INHALATION QID PRN #18 gram 08/07/20 aerosol inhaler rivaroxaban 20 mg tablet 20 mg PO DAILY #90 tab 09/25/20 cephalexin 500 mg PO Q6H 7 Days #28 cap 12/21/20 Allergies Allergy/AdvReac Type Severity Reaction Status Date / Time aspirin [ASPIRIN] Allergy Severe Swollen Verified 12/21/20 11:49 head and upper respiratory distress at age 2 Penicillins [PENICILLINS] Allergy Unknown mom was Verified 12/21/20 11:49 told I was allergic to penicillin same as aspirin. Review of Systems Constitutional Constitutional: Denies chills, Denies fatigue, Denies fever(s), Denies frequent falls, Denies lethargy and Denies weakness Eyes Eyes: Denies change in vision, Denies eye discharge, Denies irritation and Denies loss of vision ENT Ears, Nose, Mouth, and Throat: Denies change in voice, Denies dizziness, Denies neck pain, Denies sore throat and Denies throat swelling Cardiovascular Cardiovascular: Denies chest pain, Denies irregular heart rhythm, Denies lightheadedness, Denies palpitations, Denies dyspnea, Denies dyspnea on exertion and Denies orthopnea Respiratory Respiratory: Denies cough, Denies dyspnea, Denies dyspnea on exertion and Denies wheezing Gastrointestinal Gastrointestinal: Denies abdominal pain, Denies change in bowel habits, Denies diarrhea, Denies nausea and Denies vomiting Musculoskeletal Musculoskeletal: Denies neck pain and Denies numbness Integumentary/Breasts Skin/Breast: Denies pruritus, Reports erythema, Denies rash, Reports skin pain and Denies wounds Neurologic Neurologic: Denies behavioral changes, Denies confusion, Denies dizziness, Denies frequent falls, Denies loss of vision, Denies numbness and Denies weakness Psychiatric Psychiatric: Denies anxiety, Denies behavioral changes, Denies confusion, Denies depression, Denies homicidal ideation and Denies suicidal ideation Endocrine Endocrine: Denies fatigue, Denies flushing and Denies palpitations Hematologic/Lymphatic Hematologic/Lymphatic: Denies easy bruising Allergic/Immunologic Allergic/Immunologic: Denies urticaria, Denies throat swelling and Denies wheezing Patient History Medical History Acute bronchitis Acute maxillary sinusitis Allergic rhinitis (1968) Anemia Anxiety Arm fracture, left (1990) Asthma Asthma Burst fracture of lumbar vertebra (09/2015) Compression fracture of L2 (09/2015) Depression Fractures Hearing loss (1968) Hypertension (2015) Hypogonadism (~02/2016) Low back pain Nasal polyps (1968) Osteoporosis (1998) Partial blindness (1968) Sleep apnea (Unknown) Substance abuse (1999) Surgical History History of back surgery (09/2015) History of spinal fusion (2015) History of surgery on arm (1990) Hx of nasal polypectomy (~1985) Family History Brother Age: 54 Hypertension Brother Hypertension Mother Age: 77 Hypertension Sister Age: 59 Diabetes mellitus Hypertension Sister Age: 61 Diabetes mellitus Hypertension Father Cancer Social History household members: none Smoking Status: Never smoker second hand exposure: Yes (once in a while. ) alcohol intake: current substance use type: marijuana Smoking Status: Never smoker alcohol intake frequency: 0-2 drinks per day Substance Use Type: does not use and methamphetamine Exam Narrative Exam Narrative: GEN: AOx3 and in mild distress EYES: Pupils are equal, round, and reactive to light and accommodation. Extraoccular muscles are intact bilaterally. There is no subconjunctival hemorrhage or exudate. ENT: No facial swelling, tongue, lip or throat swelling, airway patent. CHEST: Lungs are clear to auscultation bilaterally and free of wheezes, rales, or rhonchi. Heart rate is regular rhythm, there are no murmurs, clicks, rubs, or gallops. There is no chest wall tenderness. ABD: Abdomen is soft and nontender. There is no guarding or rebound. Bowel sounds are normal in all 4 quadrants. There is no mass or organomegaly. EXT: Full painless ROM of all extremities with no loss of sensation or strength. SKIN: Warm, pink, and dry. No erythema or rash Initial Vital Signs Initial Vital Signs: Vital Signs Temperature 97.8 F 12/21/20 11:45 Pulse Rate 99 H 12/21/20 11:45 Respiratory Rate 14 12/21/20 11:45 Blood Pressure 169/95 H 12/21/20 11:45 Pulse Oximetry 99 12/21/20 11:45 Course Vital Signs Vital signs: Vital Signs - 8 hr 12/21/20 11:45 12/21/20 15:06 Temperature 97.8 F Pulse Rate 99 H 80 Respiratory Rate 14 16 Blood Pressure 169/95 H 140/90 Pulse Oximetry 99 99 MDM - Skin/Abscess/Foreign Bdy MDM Narrative Medical decision making narrative: Patient with minimal redness at injection site, no fever or chills, no fluctuance or induration. No systemic findings. No other rash, trouble breathing or swallowing. Discharge Plan Departure Patient Disposition: Home Clinical Impression: Cellulitis of left upper limb Instructions: DI for Cellulitis -- Adult Activity Restrictions/Additional Instructions: *You have been diagnosed with [localized reaction, likely a mild cellulitis at the injection site free a shot. This should not affect the effectiveness of your shot whatsoever.] *What to do: *Take medications as directed: Prescription sent to [facility] *Follow up with your primary care provider in 2-3 days, call for an appointment. Let them know you were seen in the Emergency Department and that we ask that you be seen in follow up *Return to ER if you should have any new, worsening or concerning symptoms, such as [increased pain, swelling, fever, shaking chills, difficulty breathing, swallowing or other bothersome symptoms] Prescriptions: New cephalexin 500 mg capsule 500 mg PO Q6H 7 Days Qty: 28 RF: 0 No Action loratadine [Claritin] 10 mg tablet 10 mg PO DAILY PRN (Reason: allergy symptoms) Qty: 90 RF: 1 fluticasone propion-salmeterol [Advair Diskus] 250-50 mcg/dose blister with device 1 inh INHALATION BID Qty: 60 RF: 2 albuterol sulfate [ProAir HFA] 90 mcg/actuation HFA aerosol inhaler 2 puff INHALATION QID PRN (Reason: shortness of breath or wheezing) Qty: 18 RF: 2 Xarelto 20 mg tablet 20 mg PO DAILY Qty: 90 RF: 1 amlodipine 10 mg tablet 10 mg PO DAILY Qty: 30 RF: 5 testosterone 10 mg/0.5 gram /actuation gel in metered-dose pump 6 pump transdermal QAM RF: 0 Xarelto 15 mg tablet 15 mg PO BID 90 Days Qty: 180 RF: 1 ibuprofen 600 mg tablet 600 mg PO Q6H PRN (Reason: pain) Qty: 30 RF: 0 benzonatate [Tessalon Perles] 100 mg capsule 100 mg PO BID-TID PRN (Reason: cough) Qty: 20 RF: 0 amlodipine 10 mg tablet 10 mg PO DAILY Qty: 14 RF: 0 fluticasone propion-salmeterol 250-50 mcg/dose blister with device 1 inhalation INHALATION BID Qty: 14 RF: 0 Referrals: Rosas Jackson, [Primary Care Provider] -
[2020-12-21 15:06] VITALS: BP 140/90; PULSE 80; RESP 16; O2SAT 99
== END 2020-12-21 15:16 | disposition home or self-care (01) ==
PROVIDERS: Emergency Provider Emergency Medicine; PCP Family Medicine
DX: L03.114 Cellulitis of left upper limb (principal)
CPT/HCPCS: 99281

== ENCOUNTER 2021-03-14 16:42 | Emergency (ER) | payer OTHER, MEDICAID, SELFPAY ==
[2021-03-14 16:45] VITALS: BP 167/68; PULSE 78; RESP 15; TEMP 36.6; O2SAT 97; BMI 30.2
--- NOTE | 2021-03-14 20:03 | ED.HA ---
HPI - Headache General Chief Complaint: Headache Stated Complaint: Headache Time Seen by Provider: 03/14/21 19:43 Mode of arrival: EMS Limitations: no limitations History of Present Illness HPI Narrative: 50-year-old male who is here for evaluation of headache. He states that it started earlier today after he woke up a little bit afternoon. He describes it is both sides of his head. It is a throbbing sensation. He does have known sinus disease. No fevers. No neck pain. Has not tried anything for symptoms prior to arrival. Was a gradual onset. Related Data Home Medications Medication Instructions Recorded Confirmed testosterone 6 pump TRANSDERMAL QAM gram 04/26/19 08/21/20 Previous Rx's Medication Instructions Recorded loratadine 10 mg tablet (Claritin) 10 mg PO DAILY PRN #90 tab 06/08/19 ibuprofen 600 mg tablet 600 mg PO Q6H PRN #30 tab 12/15/19 benzonatate 100 mg capsule 100 mg PO BID-TID PRN #20 cap 06/27/20 (Adenike Hernandez) fluticasone 250 mcg-salmeterol 50 1 inhalation INHALATION BID #14 06/27/20 mcg/dose blistr powdr for each inhalation fluticasone 250 mcg-salmeterol 50 1 inh INHALATION BID #60 each 07/15/20 mcg/dose blistr powdr for inhalation (Advair Diskus) rivaroxaban 15 mg tablet (Xarelto) 15 mg PO BID 90 Days #180 tab 07/22/20 albuterol sulfate 90 mcg/actuation 2 puff INHALATION QID PRN #18 gram 08/07/20 aerosol inhaler (ProAir HFA) rivaroxaban 20 mg tablet (Xarelto) 20 mg PO DAILY #90 tab 09/25/20 amlodipine 10 mg tablet 10 mg PO DAILY #90 tab 01/07/21 Allergies Allergy/AdvReac Type Severity Reaction Status Date / Time aspirin [ASPIRIN] Allergy Severe Swollen Verified 03/14/21 16:48 head and upper respiratory distress at age 2 Penicillins [PENICILLINS] Allergy Unknown mom was Verified 03/14/21 16:48 told I was allergic to penicillin same as aspirin. Review of Systems Constitutional Constitutional: Denies fever(s) and Reports headache(s) Eyes Comments: Difficulty seeing because of the headache ENT Ears, Nose, Mouth, and Throat: Reports headache(s) and Denies neck pain Cardiovascular Cardiovascular: Denies chest pain and Denies dyspnea Respiratory Respiratory: Denies dyspnea Gastrointestinal Gastrointestinal: Reports system reviewed and no additional complaints, except as documented and Reports vomiting Genitourinary Genitourinary: Reports system reviewed and no additional complaints, except as documented Musculoskeletal Musculoskeletal: Denies neck pain Integumentary/Breasts Skin/Breast: Reports system reviewed and no additional complaints, except as documented Neurologic Neurologic: Reports headache(s) Psychiatric Psychiatric: Reports system reviewed and no additional complaints, except as documented Endocrine Endocrine: Reports system reviewed and no additional complaints, except as documented Hematologic/Lymphatic On Anticoagulants: Yes Allergic/Immunologic Allergic/Immunologic: Reports system reviewed and no additional complaints, except as documented Patient History Medical History Acute bronchitis Acute maxillary sinusitis Allergic rhinitis (1968) Anemia Anxiety Arm fracture, left (1990) Asthma Asthma Burst fracture of lumbar vertebra (09/2015) Compression fracture of L2 (09/2015) Depression Fractures Hearing loss (1968) Hypertension (2015) Hypogonadism (~02/2016) Low back pain Nasal polyps (1968) Osteoporosis (1998) Partial blindness (1968) Sleep apnea (Unknown) Substance abuse (1999) Surgical History History of back surgery (09/2015) History of spinal fusion (2015) History of surgery on arm (1990) Hx of nasal polypectomy (~1985) Family History Brother Age: 54 Hypertension Brother Hypertension Mother Age: 77 Hypertension Sister Age: 59 Diabetes mellitus Hypertension Sister Age: 61 Diabetes mellitus Hypertension Father Cancer Social History household members: none Smoking Status: Never smoker second hand exposure: Yes (once in a while. ) alcohol intake: current substance use type: marijuana Smoking Status: Never smoker alcohol intake frequency: 0-2 drinks per day Substance Use Type: does not use and methamphetamine Exam Initial Vital Signs Initial Vital Signs: Vital Signs Temperature 97.8 F 03/14/21 16:45 Pulse Rate 78 03/14/21 16:45 Respiratory Rate 15 03/14/21 16:45 Blood Pressure 167/68 H 03/14/21 16:45 Pulse Oximetry 97 07/23/21 16:45 Const General: cooperative HENMT Head: normal to inspection and normocephalic Eyes General: appearance normal, both eyes and all related structures Resp Effort & Inspection: normal respiratory effort Cardio Rate: regular rate GI Inspection: normal to inspection Skin General: no rashes or lesions noted Neuro General: patient alert, patient awake, patient oriented x3 and moves all extremities Cognition: normal cognition Speech: speech normal Gait: normal gait Motor: muscle tone normal throughout Extrem General: normal to inspection Psych Appearance: grossly normal and well kempt Course Orders Ordered: ED Orders 03/14/21 21:11 CT head/brain wo con Stat Discontinued Medications Acetaminophen (Acetaminophen 325 Mg Tablet) 975 mg PO NOW ONE Stop: 03/14/21 20:04 Last Admin: 03/14/21 20:39 Dose: 975 mg Documented by: RICA Vital Signs Vital signs: Vital Signs - 8 hr 03/14/21 21:32 03/14/21 23:16 Pulse Rate 84 86 Respiratory Rate 16 18 Blood Pressure 183/106 H 131/70 Pulse Oximetry 96 95 MDM - Headache Imaging Data CT scan - head: Radiologist's Impression: [address] [id number] Scan ReportSigned Patient: Tom Escalona R#: [id number]: 1970Acct:[id number]/Sex: 50 / MDate of Service: 03/14/21Loc: EDAccession Number: [id number] Procedure: CT head/brain wo con Ordering Provider: Noman Patel D.O. PROCEDURE: CT HEAD/BRAIN WO CON INDICATIONS: bilateral headache TECHNIQUE: Noncontrast 4.5 mm thick angled axial sections acquired from the foramen magnum to the vertex, with coronal and sagittal reformats. For radiation dose reduction, the following was used: automated exposure control, adjustment of mA and/or kV according to patient size. COMPARISON: [facility], CT, CT FACIAL BONES WO CON, 04/10/2020, 19:52. [facility], CT, CT BRAIN WO CON, 10/05/2015, 18:58. FINDINGS: Image quality: Excellent. CSF spaces: Basal cisterns are patent. No extra-axial fluid collections. Ventricles are normal in size and shape. Brain: No midline shift. No intracranial masses or hemorrhage. Alberts-white matter interface is normal. Skull and face: Calvarium and visualized facial bones are intact, without suspicious lesions. Sinuses: Visualized sinuses are abnormal, with mild mucosal thickening involving the maxillary sinuses, and moderate right greater than left ethmoid air cell mucosal thickening. The nasal airways appear largely occluded by prominence of the soft tissues of the nasal airways bilaterally.. Mastoids appear normal. IMPRESSION: Prominent abnormal nasal airway stenosis or occlusion by soft tissue. ENT consultation may be warranted given the unusual prominence of this pattern of opacification, but a similar appearance was present on prior head CT scanning in September of [address] scanning in March of 2020. Moderate ethmoid air cell mucosal thickening, mild maxillary sinus mucosal thickening, mastoid air cells are normal. The brain parenchyma shows no evidence of hemorrhage, mass or prior ischemic injury. Dictated by: Eber Wills M.D. on 03/14/2021 at 21:32 Approved by: Eber Wills M.D. on 03/14/2021 at 21:36 [facility] Narrative Medical decision making narrative: Head CT is unremarkable. He did have improvement of his symptoms without any intervention here in the emergency department with just sleep. He got up and walked to the bathroom and he states that his headache returned somewhat. He was then given Tylenol. He does have known sinus disease and this was redemonstrated in his head CT today. I have a strong suspicion that this is the cause of his headache. Low suspicion for meningitis. Low suspicion for hemorrhage. Will hold on further workup for now. He will continue to take Tylenol if needed. He will contact his primary doctor for follow-up. Will start on antihistamines. He was given return precautions. He expressed understanding and agreement. Discharge Plan Departure Patient Disposition: Home Clinical Impression: Headache Instructions: DI for Headache Activity Restrictions/Additional Instructions: I recommend that you start taking a antihistamine such as Claritin or Janay or Zyrtec. These medications can be purchased [id number]. The generic version of these medicines as appropriate. You can continue to take Tylenol for any headaches. I suspect that your headache today is related to the sinus congestion. Contact your primary doctor for follow-up. Continue all of your medications as directed Prescriptions: No Action loratadine [Claritin] 10 mg tablet 10 mg PO DAILY PRN (Reason: allergy symptoms) Qty: 90 RF: 1 fluticasone propion-salmeterol [Advair Diskus] 250-50 mcg/dose blister with device 1 inh INHALATION BID Qty: 60 RF: 2 albuterol sulfate [ProAir HFA] 90 mcg/actuation HFA aerosol inhaler 2 puff INHALATION QID PRN (Reason: shortness of breath or wheezing) Qty: 18 RF: 2 Xarelto 20 mg tablet 20 mg PO DAILY Qty: 90 RF: 1 amlodipine 10 mg tablet 10 mg PO DAILY Qty: 90 RF: 0 testosterone 10 mg/0.5 gram /actuation gel in metered-dose pump 6 pump transdermal QAM RF: 0 Xarelto 15 mg tablet 15 mg PO BID 90 Days Qty: 180 RF: 1 ibuprofen 600 mg tablet 600 mg PO Q6H PRN (Reason: pain) Qty: 30 RF: 0 benzonatate [Tessalon Perles] 100 mg capsule 100 mg PO BID-TID PRN (Reason: cough) Qty: 20 RF: 0 fluticasone propion-salmeterol 250-50 mcg/dose blister with device 1 inhalation INHALATION BID Qty: 14 RF: 0 Referrals: Rosas Jackson, [Primary Care Provider] -
[2021-03-14] MEDS: ACETAMINOPHEN 325 MG TABLET 975 MG PO (20:39)
--- NOTE | 2021-03-14 21:11 | DI.CT.S_ITS ---
PROCEDURE: CT HEAD/BRAIN WO CON INDICATIONS: bilateral headache TECHNIQUE: Noncontrast 4.5 mm thick angled axial sections acquired from the foramen magnum to the vertex, with coronal and sagittal reformats. For radiation dose reduction, the following was used: automated exposure control, adjustment of mA and/or kV according to patient size. COMPARISON: [facility], CT, CT FACIAL BONES WO CON, 04/10/2020, 19:52. [facility], CT, CT BRAIN WO CON, 10/05/2015, 18:58. FINDINGS: Image quality: Excellent. CSF spaces: Basal cisterns are patent. No extra-axial fluid collections. Ventricles are normal in size and shape. Brain: No midline shift. No intracranial masses or hemorrhage. Alberts-white matter interface is normal. Skull and face: Calvarium and visualized facial bones are intact, without suspicious lesions. Sinuses: Visualized sinuses are abnormal, with mild mucosal thickening involving the maxillary sinuses, and moderate right greater than left ethmoid air cell mucosal thickening. The nasal airways appear largely occluded by prominence of the soft tissues of the nasal airways bilaterally.. Mastoids appear normal. IMPRESSION: Prominent abnormal nasal airway stenosis or occlusion by soft tissue. ENT consultation may be warranted given the unusual prominence of this pattern of opacification, but a similar appearance was present on prior head CT scanning in September of [address] scanning in March of 2020. Moderate ethmoid air cell mucosal thickening, mild maxillary sinus mucosal thickening, mastoid air cells are normal. The brain parenchyma shows no evidence of hemorrhage, mass or prior ischemic injury. Dictated by: Eber Wills M.D. on 03/14/2021 at 21:32 Approved by: Eber Wills M.D. on 03/14/2021 at 21:36
[2021-03-14 21:32] VITALS: BP 183/106; PULSE 84; RESP 16; O2SAT 96
[2021-03-14 23:16] VITALS: BP 131/70; PULSE 86; RESP 18; O2SAT 95
== END 2021-03-14 23:20 | disposition home or self-care (01) ==
PROVIDERS: Emergency Provider Emergency Medicine; PCP Family Medicine
DX: R51.9 Headache, unspecified (principal)
CPT/HCPCS: 70450; 99283; 99284

== ENCOUNTER 2021-03-31 11:08 | Emergency (ER) | payer OTHER, MEDICAID, SELFPAY ==
[2021-03-31 11:42] VITALS: BP 139/83; PULSE 88; RESP 18; TEMP 36.7; O2SAT 97
--- NOTE | 2021-03-31 11:42 | DI.RAD.S_ITS ---
PROCEDURE: XR RIBS RT MIN 3V W CXR 1V INDICATIONS: poss fx ribs TECHNIQUE: 2 views of the right ribs were acquired, along with a single view chest. COMPARISON: None. FINDINGS: Surgical changes and devices: None. Bones and chest wall: The bones are osteopenic. Probable fractures involving the 9th and 10th right lateral ribs. Lumbar orthopedic procedure with at least 2 level corpectomy and posterior lateral fixation noted. Lungs and pleura: No pleural effusions or pneumothorax. Lungs appear clear. Mediastinum: Mediastinal contours appear normal. H cardiomegaly. eart size is normal. IMPRESSION: Probable nondisplaced fractures of the lateral 9th and 10th right ribs. Dictated by: Terrence Davis M.D. on 03/31/2021 at 12:22 Approved by: Terrence Davis M.D. on 03/31/2021 at 12:24
[2021-03-31 14:19] VITALS: O2SAT 97
[2021-03-31] MEDS: KETOROLAC 30 MG/ML VIAL IM (14:19)
[2021-03-31] MEDS: LIDOCAINE PATCH 1 EACH ADH..PATCH TOP (14:19)
--- NOTE | 2021-03-31 14:48 | ED_ITS ---
HPI - Chest Pain <REBECA Swift-BC - Last Filed: 03/31/21 15:23> General Chief Complaint: Chest Pain Stated Complaint: Thinks broken ribs- has osteoporosis Time Seen by Provider: 03/31/21 14:01 Source: patient Mode of arrival: Ambulatory Limitations: no limitations History of Present Illness HPI narrative: the patient is a 50-year-old male nonsmoker with history of rib fractures who presents with a chief complaint of a suspected rib fracture. He states he was leaning over a rail and felt a crunch on his right side. He thinks he broke 2 ribs. He has not taken anything for pain. He states it hurts to breathe, but denies any shortness of breath. He any denies fever or cough. Related Data Home Medications Medication Instructions Recorded Confirmed testosterone 6 pump TRANSDERMAL QAM gram 04/26/19 08/21/20 Previous Rx's Medication Instructions Recorded loratadine 10 mg tablet (Claritin) 10 mg PO DAILY PRN #90 tab 06/08/19 ibuprofen 600 mg tablet 600 mg PO Q6H PRN #30 tab 12/15/19 benzonatate 100 mg capsule 100 mg PO BID-TID PRN #20 cap 06/27/20 (Adenike Hernandez) fluticasone 250 mcg-salmeterol 50 1 inhalation INHALATION BID #14 06/27/20 mcg/dose blistr powdr for each inhalation fluticasone 250 mcg-salmeterol 50 1 inh INHALATION BID #60 each 07/15/20 mcg/dose blistr powdr for inhalation (Advair Diskus) rivaroxaban 15 mg tablet (Xarelto) 15 mg PO BID 90 Days #180 tab 07/22/20 albuterol sulfate 90 mcg/actuation 2 puff INHALATION QID PRN #18 gram 08/07/20 aerosol inhaler (ProAir HFA) rivaroxaban 20 mg tablet (Xarelto) 20 mg PO DAILY #90 tab 09/25/20 amlodipine 10 mg tablet 10 mg PO DAILY #90 tab 01/07/21 hydrocodone 5 mg-acetaminophen 325 1 tab PO Q4-6H PRN #14 tab 03/31/21 mg tablet lidocaine 5 % topical patch 1 patch TOPICAL DAILY PRN #15 ea 03/31/21 Allergies Allergy/AdvReac Type Severity Reaction Status Date / Time aspirin [ASPIRIN] Allergy Severe Swollen Verified 03/14/21 16:48 head and upper respiratory distress at age 2 Penicillins [PENICILLINS] Allergy Unknown mom was Verified 03/14/21 16:48 told I was allergic to penicillin same as aspirin. Review of Systems <Sera Mixon [facility]- - Last Filed: 03/31/21 15:23> Review of Systems Narrative: GENERAL: Denies chills, fatigue, malaise, fever, sweats. HEENT: Denies sinus pain, ear pain, sore throat, difficulty swallowing, dizziness. RESPIRATORY: see HPI CARDIOVASCULAR: Denies chest pain, palpitations, orthopnea, edema, GASTROINTESTINAL: Denies nausea, vomiting, abdominal pain, diarrhea, constipation, melena. : Denies dysuria, frequency, incontinence, hematuria, urinary retention. MUSCULOSKELETAL: denies weakness, joint pain, or bony pain SKIN: Denies rash, skin lesions, or other NEUROLOGIC: Denies weakness, headache, numbness, change in speech, confusion, seizures, incoordination. PSYCHIATRIC: No concerning psychosocial issues. 12 point review of systems is negative except for those stated above Patient History <Sera Mixon [facility]- - Last Filed: 03/31/21 15:23> Medical History Acute bronchitis Acute maxillary sinusitis Allergic rhinitis (1968) Anemia Anxiety Arm fracture, left (1990) Asthma Asthma Burst fracture of lumbar vertebra (09/2015) Compression fracture of L2 (09/2015) Depression Fractures Hearing loss (1968) Hypertension (2015) Hypogonadism (~02/2016) Low back pain Nasal polyps (1968) Osteoporosis (1998) Partial blindness (1968) Sleep apnea (Unknown) Substance abuse (1999) Surgical History History of back surgery (09/2015) History of spinal fusion (2015) History of surgery on arm (1990) Hx of nasal polypectomy (~1985) Family History Brother Age: 54 Hypertension Brother Hypertension Mother Age: 77 Hypertension Sister Age: 59 Diabetes mellitus Hypertension Sister Age: 61 Diabetes mellitus Hypertension Father Cancer Social History household members: none Smoking Status: Never smoker second hand exposure: Yes (once in a while. ) alcohol intake: current substance use type: marijuana Smoking Status: Never smoker alcohol intake frequency: 0-2 drinks per day Substance Use Type: does not use and methamphetamine Exam <ALY Swift - Last Filed: 03/31/21 15:23> Narrative Exam Narrative: GENERAL: This is a well-nourished, well-developed patient, in mild distress. HEAD: Atraumatic. Normocephalic. No temporal or scalp tenderness. EYES: Pupils equal round and reactive. Extraocular motions intact. No scleral icterus. No injection or drainage. ENT: Nose without bleeding, purulent drainage or septal hematoma. Wearing a mask . Airway patent. NECK: Trachea midline. No JVD or lymphadenopathy. Supple, nontender, no meningeal signs. CARDIOVASCULAR: Regular rate and rhythm RESPIRATORY: Clear to auscultation. Breath sounds equal bilaterally. No wheezes, rales, or rhonchi. no cough. No increased respiratory effort. Speaking full sentences. Pain to palpation of right anterior chest wall. GASTROINTESTINAL: Abdomen soft, non-tender, nondistended. No hepato- splenomegaly, or palpable masses. No guarding. EXTREMITIES: No clubbing, cyanosis, or edema. No joint tenderness, effusion, or edema noted. BACK: Nontender without deformity or crepitance. No flank tenderness. NEURO: AOx3. SKIN: No rash or erythema On visible skin Initial Vital Signs Initial Vital Signs: Vital Signs Temperature 98.0 F 03/31/21 11:42 Pulse Rate 88 03/31/21 11:42 Respiratory Rate 18 03/31/21 11:42 Blood Pressure 139/83 03/31/21 11:42 Pulse Oximetry 97 03/31/21 11:42 <Noman Patel DO - Last Filed: 03/31/21 17:07> Initial Vital Signs Initial Vital Signs: Vital Signs Temperature 98.0 F 03/31/21 11:42 Pulse Rate 88 03/31/21 11:42 Respiratory Rate 18 03/31/21 11:42 Blood Pressure 139/83 03/31/21 11:42 Pulse Oximetry 97 03/31/21 11:42 Scores <ALY Swift - Last Filed: 03/31/21 15:23> [facility] [place] coma scale eye opening: Spontaneous Thai coma scale verbal response: Orientated Thai coma scale motor response: Obey commands Thai coma scale total score: 15 <Noman Patel DO - Last Filed: 03/31/21 17:07> [facility] [place] coma scale total score: 15 Course <Sera MixonVALERIEP-KAYLA - Last Filed: 03/31/21 15:23> Orders Ordered: ED Orders 03/31/21 11:42 XR ribs RT min 3V w CXR1V Stat 03/31/21 14:07 RT Consult Eval and Treat NOW Discontinued Medications Hydrocodone Bitart/Acetaminophen (Hydrocodone/Acet 5/325 Tablet) 1 tab PO NOW ONE Stop: 03/31/21 14:30 Last Admin: 03/31/21 15:07 Dose: 1 tab Documented by: MARLENE Ketorolac Tromethamine (Ketorolac 30 Mg/Ml Vial) 30 mg IM NOW ONE Stop: 03/31/21 14:08 Last Admin: 03/31/21 14:19 Dose: 30 mg Documented by: MARLENE Lidocaine (Lidocaine Patch 1 Each Adh..Patch) 1 each TOP NOW ONE Stop: 03/31/21 14:08 Last Admin: 03/31/21 14:19 Dose: 1 each Documented by: MARLENE Vital Signs Vital signs: Vital Signs - 8 hr 03/31/21 11:42 03/31/21 14:19 Temperature 98.0 F Pulse Rate 88 Respiratory Rate 18 Blood Pressure 139/83 Pulse Oximetry 97 97 <Noman Patel DO - Last Filed: 03/31/21 17:07> Orders Ordered: ED Orders 03/31/21 11:42 XR ribs RT min 3V w CXR1V Stat 03/31/21 14:07 RT Consult Eval and Treat NOW Discontinued Medications Hydrocodone Bitart/Acetaminophen (Hydrocodone/Acet 5/325 Tablet) 1 tab PO NOW ONE Stop: 03/31/21 14:30 Last Admin: 03/31/21 15:07 Dose: 1 tab Documented by: MARLENE Ketorolac Tromethamine (Ketorolac 30 Mg/Ml Vial) 30 mg IM NOW ONE Stop: 03/31/21 14:08 Last Admin: 03/31/21 14:19 Dose: 30 mg Documented by: MARLENE Lidocaine (Lidocaine Patch 1 Each Adh..Patch) 1 each TOP NOW ONE Stop: 03/31/21 14:08 Last Admin: 03/31/21 14:19 Dose: 1 each Documented by: MARLENE Vital Signs Vital signs: Vital Signs - 8 hr 03/31/21 11:42 03/31/21 14:19 Temperature 98.0 F Pulse Rate 88 Respiratory Rate 18 Blood Pressure 139/83 Pulse Oximetry 97 97 MDM - Chest Pain <JOE Swift - Last Filed: 03/31/21 15:23> Imaging Data Chest x-ray: Radiologist's Impression: [address] [id number] ReportSigned Patient: Tom Escalona JMR#: [id number]: [id number]:[id number]/Sex: 50 / MDate of Service: 03/31/21Loc: EDAccession Number: [id number] Procedure: XR ribs RT min 3V w CXR1V Ordering Provider: Noamn Patel D.O. PROCEDURE: XR RIBS RT MIN 3V W CXR 1V INDICATIONS: poss fx ribs TECHNIQUE: 2 views of the right ribs were acquired, along with a single view chest. COMPARISON: None. FINDINGS: Surgical changes and devices: None. Bones and chest wall: The bones are osteopenic. Probable fractures involving t he 9th and 10th right lateral ribs. Lumbar orthopedic procedure with at least 2 level corpectomy and posterior lateral fixation noted. Lungs and pleura: No pleural effusions or pneumothorax. Lungs appear clear. Mediastinum: Mediastinal contours appear normal. H cardiomegaly. eart size is normal. IMPRESSION: Probable nondisplaced fractures of the lateral 9th and 10th right ribs. Dictated by: Terrence Davis M.D. on 03/31/2021 at 12:22 Approved by: Terrence Davis M.D. on 03/31/2021 at 12:24 [facility] Narrative Medical decision making narrative: the patient is a 50-year-old male who presents with a chief complaint of suspected broken ribs given crunching while leaning over a rail. X-ray illustrate nondisplaced right 9 And 10 rib fractures. his vitals are stable, he is oxygenating well, no signs of pneumothorax. Pain control was provided and the patient had teaching by respiratory therapy for incentive spirometry etcetera. I encouraged follow-up with primary care provider, encouraged use of IS to help prevent pneumonia. Patient has no questions or concerns upon discharge and states understanding of return precautions as well as follow-up care. Discharge Plan Departure Patient Disposition: Home Clinical Impression: Right rib fracture Qualifiers: Encounter type: initial encounter Rib fracture type: multiple ribs Fracture type: closed Qualified Code(s): S22.41XA - Multiple fractures of ribs, right side, initial encounter for closed fracture Instructions: DI for Rib Fracture Activity Restrictions/Additional Instructions: thank you for trusting us with your care today. As discussed, you broke ribs 9 and 10 on the right side. I sent 2 prescriptions to [facility], 1 is hydrocodone with Tylenol for pain. The other is a lidocaine patch. This can go on for 12 hours and come off for 12 hours. I have given you a prescription of a narcotic for pain. Be aware that this can be constipating and sedating. I encouraged taking with a stool softener, pushing fluids and fiber. Do not take and drive, operate heavy machinery, etc. Do not combine it with any other sedating substances such as alcohol. The combination of narcotics and alcohol and/or other sedatives can be lethal. Please be aware that we do not provide refills of controlled substances in the emergency department. Please use the incentive spirometer so that you do not developed pneumonia. Please come back to the emergency department for any acute concerns. Please follow-up with primary care In the next few days. Prescriptions: New hydrocodone-acetaminophen 5-325 mg tablet 1 tab PO Q4-6H PRN (Reason: pain) Qty: 14 RF: 0 lidocaine 5 % adhesive patch,medicated 1 patch topical DAILY PRN (Reason: pain) Qty: 15 RF: 0 No Action loratadine [Claritin] 10 mg tablet 10 mg PO DAILY PRN (Reason: allergy symptoms) Qty: 90 RF: 1 fluticasone propion-salmeterol [Advair Diskus] 250-50 mcg/dose blister with device 1 inh INHALATION BID Qty: 60 RF: 2 albuterol sulfate [ProAir HFA] 90 mcg/actuation HFA aerosol inhaler 2 puff INHALATION QID PRN (Reason: shortness of breath or wheezing) Qty: 18 RF: 2 Xarelto 20 mg tablet 20 mg PO DAILY Qty: 90 RF: 1 amlodipine 10 mg tablet 10 mg PO DAILY Qty: 90 RF: 0 testosterone 10 mg/0.5 gram /actuation gel in metered-dose pump 6 pump transdermal QAM RF: 0 Xarelto 15 mg tablet 15 mg PO BID 90 Days Qty: 180 RF: 1 ibuprofen 600 mg tablet 600 mg PO Q6H PRN (Reason: pain) Qty: 30 RF: 0 benzonatate [Tessalon Perles] 100 mg capsule 100 mg PO BID-TID PRN (Reason: cough) Qty: 20 RF: 0 fluticasone propion-salmeterol 250-50 mcg/dose blister with device 1 inhalation INHALATION BID Qty: 14 RF: 0 Referrals: Rosas Jackson DO [Primary Care Provider] - <Noman Patel DO - Last Filed: 03/31/21 17:07> Cosign ED Attending Cosignature Attestation: Dr Patel Co-Sign Statement: I was available for consultation during this patient's emergency department visit. This chart is signed by myself for administrative purposes only. I did not have direct contact with this patient during this visit. They were seen inde pendently by the APC.
[2021-03-31] MEDS: HYDROCODONE/ACET 5/325 TABLET 1 TAB PO (15:07)
== END 2021-03-31 15:11 | disposition home or self-care (01) ==
PROVIDERS: Emergency Provider Nurse Practitioner Family; PCP Family Medicine
DX: S22.41XA Multiple fractures of ribs, right side, initial encounter for closed fracture (principal)
CPT/HCPCS: 71101; 96372; 99283; J1885

== ENCOUNTER → 2021-06-04 09:50 | Outpatient (CLI) | payer OTHER, MEDICAID, SELFPAY ==
[2021-06-04 11:22] LABS: Alanine Aminotransferase 19 IU/L (<50); Albumin 4.2 g/dL (3.5-5.0); Albumin Globulin Ratio 1.2 (1.0-2.8); Alkaline Phosphatase 95 U/L (38-126); Aspartate Aminotransferase 23 IU/L (17-59); BUN Creatinine Ratio 16.9 (6-22); Bilirubin Total 0.6 mg/dL (0.2-1.3); Blood Urea Nitrogen 11 mg/dL (9-20); Calcium 9.2 mg/dL (8.4-10.2); Carbon Dioxide 28 mmol/L (22-32); Chloride 104 mmol/L (98-107); Estimated Glomerular Filt Rate > 60.0 mL/min (>60); Globulin 3.5 g/dL (1.7-4.1); Glucose 85 mg/dL (70-100); HEMOLYSIS < 15 (0-50); Potassium 4.2 mmol/L (3.4-5.1); Sodium 141 mmol/L (137-145); Total Protein 7.7 g/dL (6.3-8.2)
[2021-06-04 12:41] LABS: UR Morphine/Opiate cutoff 300 Negative (Negative); Ur Creatinine Normal (Normal); Ur Specific Gravity Normal (Normal); Urine Amphetamines Negative (Negative); Urine Barbiturates Negative (Negative); Urine Benzodiazepines Negative (Negative); Urine Cocaine Negative (Negative); Urine MDMA Negative (Negative); Urine Methadone Negative (Negative); Urine Methamphetamines Negative (Negative); Urine Oxycodone Negative (Negative); Urine Phencyclidine Negative (Negative); Urine Tetrahydrocannabinol Negative (Negative); Urine Tricyclic Antidepressant Negative (Negative); Urine pH Normal (Normal)
[2021-06-04 18:15] LABS: HIV 1 & 2 Ab/Ag 4th Gen Combo NEGATIVE (NEGATIVE)
[2021-06-05 06:54] LABS: HBsAg Screen Negative (Negative); Hepatitis A Antibody IgM Negative (Negative); Hepatitis B Core Antibody IgM Negative (Negative); Hepatitis C Antibody <0.1 s/co ratio (0.0-0.9)
== END ==
PROVIDERS: PCP Family Medicine; Referring Provider Family Medicine; Visit Provider Family Medicine
DX: F11.10 Opioid abuse, uncomplicated (principal); F15.10 Other stimulant abuse, uncomplicated; F19.90 Other psychoactive substance use, unspecified, uncomplicated
CPT/HCPCS: 36415; 80053; 80074; 80305; 87389

== ENCOUNTER 2021-12-21 06:40 | Emergency (ER) | payer OTHER, MEDICAID, SELFPAY ==
[2021-12-21 06:47] VITALS: BP 183/110; PULSE 62; RESP 18; O2SAT 96; BMI 33.3
[2021-12-21 06:53] VITALS: TEMP 36.6
--- NOTE | 2021-12-21 07:25 | ED_ITS ---
HPI - Wound/Laceration General Chief Complaint: Wound/Laceration Stated Complaint: cut pointer finger on left hand Time Seen by Provider: 12/21/21 07:03 Source: patient Mode of arrival: Ambulatory History of Present Illness HPI narrative: 51-year-old male. Right-hand dominant to is here for evaluation of a cut to his left middle finger. He states that he cut it this morning with a serrated knife. He is on anticoagulation. He did cover with a bandage. Has not washed out. Related Data Home Medications Medication Instructions Recorded Confirmed testosterone 6 pump TRANSDERMAL QAM gram 04/26/19 10/27/21 montelukast 10 mg tablet 10 mg PO DAILY tab 06/04/21 10/27/21 acetaminophen 500 mg tablet 500 mg PO Q6H PRN 08/26/21 10/27/21 Previous Rx's Medication Instructions Recorded ibuprofen 600 mg tablet 600 mg PO Q6H PRN #30 tab 12/15/19 fluticasone propionate 50 1 spray INTRANASAL DAILY #16 g 07/15/21 mcg/actuation nasal spray,suspension (Flonase Allergy Relief) fluticasone 250 mcg-salmeterol 50 See Rx Instructions .ROUTE 09/16/21 mcg/dose blistr powdr for .COMPLEX #60 ea inhalation amlodipine 2.5 mg tablet 2.5 mg PO BID #180 tab 10/27/21 albuterol sulfate 90 mcg/actuation See Rx Instructions .ROUTE 12/01/21 aerosol inhaler (ProAir HFA) .COMPLEX #8.5 g sertraline 25 mg tablet See Rx Instructions .ROUTE 12/08/21 .COMPLEX #90 tab rivaroxaban 2.5 mg tablet (Xarelto) 2.5 mg PO BID #180 tab 12/09/21 Allergies Allergy/AdvReac Type Severity Reaction Status Date / Time aspirin [ASPIRIN] Allergy Severe Swollen Verified 10/27/21 08:09 head and upper respiratory distress at age 2 Penicillins [PENICILLINS] Allergy Unknown mom was Verified 10/27/21 08:09 told I was allergic to penicillin same as aspirin. Review of Systems Musculoskeletal Comments: Pain to left index finger Integumentary/Breasts Comments: Cut left index finger Neurologic Neurologic: Reports system reviewed and no additional complaints, except as documented Hematologic/Lymphatic On Anticoagulants: No Patient History Medical History Acute bronchitis Acute maxillary sinusitis Allergic rhinitis (1968) Anemia Anxiety Arm fracture, left (1990) Asthma Asthma At average risk for colon cancer Burst fracture of lumbar vertebra (09/2015) Closed unstable burst fracture of third lumbar vertebra (07/30/16) Compression fracture of L2 (09/2015) Depression Encounter for screening colonoscopy Fractures Hearing loss (1968) Hypertension (2015) Hypogonadism (~02/2016) Low back pain Nasal polyps (1968) Osteoporosis (1998) Partial blindness (1968) RSV (respiratory syncytial virus pneumonia) Sleep apnea (Unknown) Substance abuse (1999) Tinea cruris Surgical History History of back surgery (09/2015) History of spinal fusion (2015) History of surgery on arm (1990) Hx of nasal polypectomy (~1985) Family History Brother Age: 55 Hypertension Brother Hypertension Mother Age: 78 Hypertension Sister Age: 60 Diabetes mellitus Hypertension Sister Age: 62 Diabetes mellitus Hypertension Father Cancer Social History household members: none Smoking Status: Never smoker second hand exposure: Yes (once in a while. ) alcohol intake: current substance use type: marijuana, heroin, opiates and methamphetamine Smoking Status: Never smoker alcohol intake frequency: 0-2 drinks per day Substance Use Type: does not use and methamphetamine Exam Initial Vital Signs Initial Vital Signs: Vital Signs Pulse Rate 62 12/21/21 06:47 Respiratory Rate 18 12/21/21 06:47 Blood Pressure 183/110 H 12/21/21 06:47 Pulse Oximetry 96 12/21/21 06:47 HENNY Head: normal to inspection and normocephalic Skin Other: 1 cm laceration volar aspect just distal to the D IP joint left index finger. Neuro Sensory Exam: no sensory deficits noted Extrem Other: Patient able to flex and extend at the DI [employer]CUE IP joint of left index finger. The rest of his hand is unremarkable. Procedures Laceration Repair Laceration 1: Site: hand (Index finger) Side (If applicable): left Size (cm): 1 Description: linear and flap Depth: simple, single layer Pre-repair: irrigated extensively Skin layer closed with: dermabond Course Vital Signs Vital signs: Vital Signs - 8 hr 12/21/21 06:47 12/21/21 06:53 Temperature 97.9 F Pulse Rate 62 Respiratory Rate 18 Blood Pressure 183/110 H Pulse Oximetry 96 MDM - Wound/Laceration MDM Narrative Medical decision making narrative: Neurovascularly intact. Is using because of being on blood thinners. Superficial wound was closed as described above. Patient was given care instructions and return precautions. He expressed understanding and agreement. Discharge Plan Departure Patient Disposition: Home Clinical Impression: Laceration of finger of left hand Instructions: DI for Laceration Repair Activity Restrictions/Additional Instructions: I do recommend that you leave the bandage in place for the next 24 hours. After that you can take it off and wash her hands like normal. The Steri-Strips and skin glue will come off on their own. Contact your primary doctor for follow- up. Return to the emergency department for any new or worsening symptoms. Prescriptions: No Action fluticasone propionate [Flonase Allergy Relief] 50 mcg/actuation spray,suspension 1 spray intranasal DAILY Qty: 16 1RF Rx Instructions: administer into each nostril fluticasone propion-salmeterol 250-50 mcg/dose blister with device See Rx Instructions .ROUTE .COMPLEX Qty: 60 2RF Dose Instruction: INHALE ONE PUFF BY MOUTH TWICE DAILY Rx Instructions: INHALE ONE PUFF BY MOUTH TWICE DAILY albuterol sulfate [ProAir HFA] 90 mcg/actuation HFA aerosol inhaler See Rx Instructions .ROUTE .COMPLEX Qty: 8.5 0RF Dose Instruction: INHALE 2 PUFFS BY MOUTH 4 TIMES A DAY NEEDED FOR SHORTNESS OF BREATH OR WHEEZING Rx Instructions: INHALE 2 PUFFS BY MOUTH 4 TIMES A DAY NEEDED FOR SHORTNESS OF BREATH OR WHEEZING sertraline 25 mg tablet See Rx Instructions .ROUTE .COMPLEX Qty: 90 0RF Dose Instruction: TAKE ONE TABLET BY MOUTH ONE TIME DAILY Rx Instructions: TAKE ONE TABLET BY MOUTH ONE TIME DAILY Xarelto 2.5 mg tablet 2.5 mg PO BID Qty: 180 3RF amlodipine 2.5 mg tablet 2.5 mg PO BID Qty: 180 3RF testosterone 10 mg/0.5 gram /actuation gel in metered-dose pump 6 pump transdermal QAM 0RF montelukast 10 mg tablet 10 mg PO DAILY 0RF acetaminophen 500 mg tablet 500 mg PO Q6H PRN0RF ibuprofen 600 mg tablet 600 mg PO Q6H PRN (Reason: pain) Qty: 30 0RF Referrals: Rosas Jackson DO [Primary Care Provider] -
[2021-12-21 08:05] VITALS: BP 183/109; PULSE 71; RESP 14; TEMP 36.4; O2SAT 98
--- NOTE | 2021-12-21 08:17 | PC.NURSE ---
Provided wound cleansing, wound care and dressing. Tolerated well.
== END 2021-12-21 08:18 | disposition home or self-care (01) ==
PROVIDERS: Emergency Provider Emergency Medicine; PCP Family Medicine
DX: S61.211A Laceration without foreign body of left index finger without damage to nail, initial encounter (principal); W29.1XXA Contact with electric knife, initial encounter; Z79.01 Long term (current) use of anticoagulants
CPT/HCPCS: 99282; 99283

== ENCOUNTER → 2021-12-26 08:50 | Outpatient (CLI) | payer OTHER, MEDICAID, SELFPAY ==
[2021-12-26 09:21] LABS: Add Manual Diff / Slide Review NO; Basophils Absolute Auto 0 /uL (0-100); Basophils Percent Auto 0.8 % (0-2); Eosinophils Absolute Auto 200 /uL (0-450); Eosinophils Percent Auto 4.6 % (2-4); Hematocrit 37.4 % (41-53); Hemoglobin 12.2 g/dL (13.5-17.5); Lymphocytes Absolute Auto 1600 /uL (1100-4500); Lymphocytes Percent Auto 32.8 % (25-40); Mean Corpuscular HGB Conc 32.5 % (30-36); Mean Corpuscular Hemoglobin 23.9 PG (26-34); Mean Corpuscular Volume 73.5 fL (80-100); Monocytes Absolute Auto 400 /uL (0-900); Monocytes Percent Auto 8.1 % (3-14); Neutrophils Absolute Auto 2600 /uL (1500-7000); Neutrophils Percent Auto 53.7 % (50-75); Platelet Count 252 X10^3/uL (150-400); Red Blood Cell Count 5.09 X10^6/uL (4.5-5.9); Red Cell Distribution Width 23.6 % (11.6-14.8); White Blood Cell Count 4.9 X10^3/uL (4.5-11.0)
[2021-12-26 09:30] LABS: Hemoglobin A1C% w Est Avg Glu 5.8 % (4.0-6.0)
[2021-12-26 09:48] LABS: Anisocytosis 2+; Poikilocytosis 1+
[2021-12-26 09:58] LABS: Alanine Aminotransferase 22 IU/L (<50); Albumin 4.5 g/dL (3.5-5.0); Albumin Globulin Ratio 1.3 (1.0-2.8); Alkaline Phosphatase 95 U/L (38-126); Aspartate Aminotransferase 28 IU/L (17-59); BUN Creatinine Ratio 20.6 (6-22); Bilirubin Total 0.3 mg/dL (0.2-1.3); Blood Urea Nitrogen 14 mg/dL (9-20); Calcium 9.5 mg/dL (8.4-10.2); Carbon Dioxide 28 mmol/L (22-32); Chloride 107 mmol/L (98-107); Estimated Glomerular Filt Rate > 60 mL/min (>60); Globulin 3.6 g/dL (1.7-4.1); Glucose 96 mg/dL (70-100); HEMOLYSIS < 15 (0-50); Potassium 3.9 mmol/L (3.4-5.1); Sodium 145 mmol/L (137-145); Total Protein 8.1 g/dL (6.3-8.2)
[2021-12-26 10:30] LABS: Prostate Specific Antigen 1.06 ng/mL (0.10-4.00)
[2022-01-05 10:25] LABS: Percent Free Testosterone 2.26 % (1.50-4.20); Testosterone Total 44.1 ng/dL (264.0-916.0)
== END ==
PROVIDERS: PCP Family Medicine; Referring Provider Family Medicine; Visit Provider Family Medicine
DX: E29.1 Testicular hypofunction (principal); I10 Essential (primary) hypertension; I80.02 Phlebitis and thrombophlebitis of superficial vessels of left lower extremity; M81.0 Age-related osteoporosis without current pathological fracture
CPT/HCPCS: 36415; 80053; 83036; 84153; 84402; 84403; 85025

== ENCOUNTER → 2022-02-25 13:25 | Outpatient (CLI) | payer OTHER, MEDICAID, SELFPAY | PROVIDERS: PCP Family Medicine; Referring Provider Family Medicine; Visit Provider Family Medicine | DX: Z01.818 Encounter for other preprocedural examination (principal) | CPT/HCPCS: 93005; 93010 ==

== ENCOUNTER → 2022-03-19 09:50 | Outpatient (CLI) | payer OTHER, MEDICAID, SELFPAY | PROVIDERS: PCP Family Medicine; Referring Provider Family Medicine; Visit Provider Family Medicine | DX: M81.8 Other osteoporosis without current pathological fracture (principal) | CPT/HCPCS: 77080 ==

== ENCOUNTER → 2022-05-14 07:48 | Outpatient (CLI) | payer OTHER, MEDICAID, SELFPAY ==
[2022-05-14 08:50] LABS: BUN Creatinine Ratio 26.6 (6-22); Blood Urea Nitrogen 17 mg/dL (9-20); Calcium 9.4 mg/dL (8.4-10.2); Carbon Dioxide 24 mmol/L (22-32); Chloride 106 mmol/L (98-107); Estimated Glomerular Filt Rate > 60 mL/min (>60); Glucose 97 mg/dL (70-100); HEMOLYSIS < 15 (0-50); Potassium 3.7 mmol/L (3.4-5.1); Sodium 142 mmol/L (137-145)
[2022-05-14 09:04] LABS: Vitamin D 25 Hydroxy (D3) 29.4 ng/mL (30.0-100.0)
== END ==
PROVIDERS: PCP Family Medicine; Referring Provider Internal Medicine Endocrinology, Diabetes & Metabolism; Visit Provider Internal Medicine Endocrinology, Diabetes & Metabolism
DX: M81.0 Age-related osteoporosis without current pathological fracture (principal)
CPT/HCPCS: 36415; 80048; 82306

== ENCOUNTER → 2022-05-26 16:30 | Outpatient (CLI) | payer OTHER, MEDICAID, SELFPAY ==
[2022-05-26 18:05] LABS: Add Manual Diff / Slide Review NO; Basophils Absolute Auto 0 /uL (0-100); Basophils Percent Auto 0.3 % (0-2); Eosinophils Absolute Auto 100 /uL (0-450); Eosinophils Percent Auto 1.8 % (2-4); Hematocrit 36.6 % (41-53); Lymphocytes Absolute Auto 900 /uL (1100-4500); Lymphocytes Percent Auto 18.1 % (25-40); Mean Corpuscular HGB Conc 32.9 % (30-36); Mean Corpuscular Hemoglobin 26.9 PG (26-34); Mean Corpuscular Volume 81.7 fL (80-100); Monocytes Absolute Auto 500 /uL (0-900); Monocytes Percent Auto 10.2 % (3-14); Neutrophils Absolute Auto 3500 /uL (1500-7000); Neutrophils Percent Auto 69.6 % (50-75); Platelet Count 213 X10^3/uL (150-400); Red Blood Cell Count 4.48 X10^6/uL (4.5-5.9); Red Cell Distribution Width 15.6 % (11.6-14.8); White Blood Cell Count 5.1 X10^3/uL (4.5-11.0)
[2022-05-26 18:19] LABS: INR 1.1 (0.9-1.3)
[2022-05-26 18:29] LABS: Cholesterol 182 mg/dL (140-199); HDL Cholesterol 62 mg/dL (40-60); LDL Cholesterol Calculated 102 mg/dL (<100); Triglycerides 88 mg/dL (35-150)
== END ==
PROVIDERS: PCP Family Medicine; Referring Provider Family Medicine; Visit Provider Family Medicine
DX: D64.9 Anemia, unspecified (principal); I80.02 Phlebitis and thrombophlebitis of superficial vessels of left lower extremity; I87.9 Disorder of vein, unspecified; Z92.29 Personal history of other drug therapy; I10 Essential (primary) hypertension; Z13.9 Encounter for screening, unspecified
CPT/HCPCS: 36415; 80061; 85025; 85610

== ENCOUNTER → 2022-09-16 18:28 | Outpatient (CLI) | payer OTHER, MEDICAID, SELFPAY ==
--- NOTE | 2022-09-16 18:30 | DI.RAD.S_ITS ---
PROCEDURE: XR SACRUM COCCYX MIN 2V INDICATIONS: Tailbone pain TECHNIQUE: 3 views of the sacrum and coccyx acquired. COMPARISON: None. FINDINGS: Bones: No fractures or dislocations. Bilateral sacroiliac joint osteoarthritic changes are seen. No bony erosion or ankylosis. No suspicious bony lesions. Soft tissues: Visualized bowel gas pattern is normal. No suspicious soft tissue densities. IMPRESSION: No acute sacral or coccygeal fracture. Bilateral sacroiliac joint osteoarthritis. No evidence of bony erosion or ankylosis. Dictated by: Yasmani Alvarez M.D. on 09/17/2022 at 12:15 Approved by: Yasmani Alvarez M.D. on 09/17/2022 at 12:34
== END ==
PROVIDERS: PCP Family Medicine; Referring Provider Nurse Practitioner Family; Visit Provider Nurse Practitioner Family
DX: M53.3 Sacrococcygeal disorders, not elsewhere classified (principal); M46.1 Sacroiliitis, not elsewhere classified
CPT/HCPCS: 72220